=== PATIENT | female | born 1960 | race Caucasian/White ===

== ENCOUNTER 2016-12-24 10:43 | Outpatient (CLI) | payer MEDICAID ==
--- NOTE | 2016-12-24 15:20 | XRAY Report ---
LEFT HIP AND PELVIS: 12/24/2016 CLINICAL INDICATION: Pain. FINDINGS: Frontal view of the hips and pelvis and frogleg lateral view of the left hip demonstrate n o evidence of fracture or dislocation. The joint spaces are preserved. No radiopaque foreign body is appreciated in the soft tissues. IMPRESSION: NORMAL LEFT HIP AND PELVIS. JOB #: [id number] EXT JOB #:[id number]
--- NOTE | 2016-12-24 15:21 | XRAY Report ---
THREE VIEW LEFT KNEE: 12/24/2016 CLINICAL INDICATION: Knee pain. FINDINGS: Frontal, lateral, and sunrise views of the left knee demonstrate no evidence of fracture o r dislocation. The joint spaces are preserved. No effusion is present. IMPRESSION: NORMAL LEFT KNEE. JOB #: [id number] EXT JOB #:[id number]
== END 2016-12-24 10:44 | disposition home or self-care (01) ==
LOC: DI.S 10:43
PROVIDERS: ATTEND Nurse Practitioner Family
DX: M25.552 Pain in left hip (principal); M25.562 Pain in left knee

== ENCOUNTER 2017-06-08 14:24 | Emergency (ER) | payer MEDICAID ==
[2017-06-08] MEDS ORDERED: PANTOPRAZOLE 40 MG VIAL IVP STA (14:43)
--- NOTE | 2017-06-08 14:47 | ED Physician Documentation ---
PD HPI CHEST PAIN - Stated complaint Stated Complaint: CHEST PX - Chief complaint Chief Complaint: Cardiac - History obtained from History obtained from: Patient - History of Present Illness Timing - onset: Other (56-year-old woman with no known heart disease, she does have a history of treated hepatitis C and nephrectomy. Over the last 3 days she has had intermittent central squeezing chest pains, they are not exertional and they do seem to be worse at night. They are associated with shortness of breath, nausea and dizziness. Today also she had black tarry stool without hematemesis.) Review of Systems Ten Systems: 10 systems reviewed and negative Constitutional: reports: Fatigue. denies: Fever, Chills Ears: denies: Drainage/discharge Nose: denies: Rhinorrhea / runny nose, Congestion Cardiac: reports: Chest pain / pressure. denies: Palpitations Respiratory: reports: Dyspnea. denies: Cough GI: reports: Nausea, Bloody / black stool. denies: Abdominal Pain, Vomiting, Constipation, Diarrhea PD PAST MEDICAL HISTORY - Past Medical History Past Medical History: Yes Cardiovascular: Hypertension Respiratory: Shortness of breath Neuro: CVA Endocrine/Autoimmune: None, HyPOthyroidism GI: Hepatitis : Other HEENT: None Psych: Depression, Anxiety Musculoskeletal: Osteoarthritis - Past Surgical History Past Surgical History: Yes General: EGD, Other - Present Medications Home Medications: Ambulatory Orders Medication Instructions Recorded Confirmed Lisinopril 10 mg PO DAILY #7 tablet 04/11/15 06/08/17 Levothyroxine Sodium 0 mcg PO DAILY 06/08/17 06/08/17 Omeprazole [PriLOSEC] 20 mg PO BID #60 capsule 06/08/17 - Allergies Allergies/Adverse Reactions: Allergies Allergy/AdvReac Type Severity Reaction Status Date / Time No Known Drug Allergies Allergy Verified 04/11/15 10:39 - Social History Does the pt smoke?: Yes Smoking Status: Current every day smoker Does the pt drink ETOH?: Yes Does the pt have substance abuse?: No - Family History Family history: reports: Non contributory PD ED PE NORMAL - Vitals Vital signs reviewed: Yes - General General: Alert and oriented X 3, No acute distress - HEENT HEENT: PERRL, EOMI - Neck Neck: Supple, no meningeal sign, No bony TTP - Cardiac Cardiac: RRR, No murmur - Respiratory Respiratory: No respiratory distress, Clear bilaterally - Abdomen Abdomen: Normal bowel sounds, Soft, Non tender - Rectal Rectal: Other (Done with Irish Griffin present in chaperoning, she has melena from below that is guaiac positive.) - Derm Derm: Normal color, Warm and dry - Extremities Extremities: No edema, No calf tenderness / cord - Neuro Neuro: Alert and oriented X 3, Normal speech Eye Opening: Spontaneous Motor: Obeys Commands Verbal: Oriented GCS Score: 15 - Psych Psych: Normal mood, Normal affect Results - Vitals Vitals: Vital Signs - 24 hr 06/08/17 06/08/17 06/08/17 14:27 16:32 17:22 Temperature 36.3 C L 36.7 C 36.4 C L Heart Rate 80 68 67 Respiratory 18 15 15 Rate Blood Pressure 143/90 H 122/92 H 119/77 O2 Saturation 97 97 98 Oxygen O2 Source Room air - EKG (time done) 1428 Rate: Rate (enter#) (81) Rhythm: NSR [place]: Normal Intervals: Normal [place] QRS: Normal Ischemia: Normal ST segments Computer interpretation: Agree with computer - Labs Labs: Laboratory Tests 06/08/17 06/08/17 06/08/17 14:46 14:46 14:46 WBC 8.7 RBC 4.39 Hgb 13.8 Hct 41.0 MCV 93.3 MCH 31.4 H MCHC 33.7 RDW 13.2 Plt Count 328 MPV 6.9 L Neut # 5.8 Lymph # 2.3 [place] # 0.6 Eos # 0.1 Baso # 0.0 Absolute Nucleated RBC 0.00 Nucleated RBC % 0.0 PT 12.7 H INR 1.1 APTT 27.7 Sodium 136 Potassium 3.8 Chloride 107 Carbon Dioxide 22 Anion Gap 7.0 BUN 16 Creatinine 1.0 Estimated GFR (MDRD) 57 L Glucose 106 H Calcium 8.6 Magnesium 2.1 Total Bilirubin 0.9 AST 24 ALT 18 Alkaline Phosphatase 83 Troponin I Total Protein 7.4 Albumin 4.3 Globulin 3.1 Albumin/Globulin Ratio 1.4 Lipase 24 Ethyl Alcohol < 5.0 Blood Type Antibody Screen Crossmatch IS Only 06/08/17 06/08/17 06/08/17 14:46 14:46 17:04 WBC RBC Hgb 14.1 Hct 41.5 MCV MCH MCHC RDW Plt Count MPV Neut # Lymph # [place] # Eos # Baso # Absolute Nucleated RBC Nucleated RBC % PT INR APTT Sodium Potassium Chloride Carbon Dioxide Anion Gap BUN Creatinine Estimated GFR (MDRD) Glucose Calcium Magnesium Total Bilirubin AST ALT Alkaline Phosphatase Troponin I < 0.04 Total Protein Albumin Globulin Albumin/Globulin Ratio Lipase Ethyl Alcohol Blood Type A POSITIVE Antibody Screen NEGATIVE Crossmatch IS Only See Detail 06/08/17 17:04 WBC RBC Hgb Hct MCV MCH MCHC RDW Plt Count MPV Neut # Lymph # [place] # Eos # Baso # Absolute Nucleated RBC Nucleated RBC % PT INR APTT Sodium Potassium Chloride Carbon Dioxide Anion Gap BUN Creatinine Estimated GFR (MDRD) Glucose Calcium Magnesium Total Bilirubin AST ALT Alkaline Phosphatase Troponin I < 0.04 Total Protein Albumin Globulin Albumin/Globulin Ratio Lipase Ethyl Alcohol Blood Type Antibody Screen Crossmatch IS Only PD MEDICAL DECISION MAKING - ED course ED course: 56yo woman with H/O Hep C but no history of cirrhosis or varices preesnts with epigastric/chest pain with melena today. Her H/H is good as are her hemodynamics. Spoke with Dr Cifuentes recreation engineer surgery who felt she could be discharged for outpatient EGD. Given the acute nature though I will keep her in the ED for rpt H/H and trop. Departure - Departure Disposition: 01 Home, Self Care Clinical Impression: Gastritis Qualifiers: Gastritis type: superficial Chronicity: acute Gastritis bleeding: with bleeding Qualified Code(s): K29.01 - Acute gastritis with bleeding Condition: Good Record reviewed to determine appropriate education?: Yes Instructions: ED Gastritis Follow-Up: Елена Lan ARNP [Primary Care Provider] - Ayush Cifuentes MD [Provider Admit Priv/Credential] - Prescriptions: Omeprazole [PriLOSEC] 20 mg PO BID #60 capsule
[2017-06-08 14:56] LABS: BASOPHILS % (AUTO) 0.5 %; EOSINOPHILS # (AUTO) 0.1 10^3/uL (0.0-0.7); EOSINOPHILS % (AUTO) 0.7 %; HGB - HEMOGLOBIN 13.8 g/dL (12.0-16.0); LYMPHOCYTES # (AUTO) 2.3 10^3/uL (1.5-3.5); MEAN CORPUSCULAR HEMOGLOBIN 31.4 pg (27.0-31.0); MEAN CORPUSCULAR HGB CONC 33.7 g/dL (32.0-36.0); MEAN CORPUSCULAR VOLUME 93.3 fL (81.0-99.0); MEAN PLATELET VOLUME 6.9 fL (7.9-10.8); MONOCYTES # (AUTO) 0.6 10^3/uL (0.0-1.0); MONOCYTES % (AUTO) 6.7 %; NEUTROPHILS # (AUTO) 5.8 10^3/uL (1.5-6.6); NEUTROPHILS % (AUTO) 66.1 %; RED BLOOD COUNT 4.39 10^6/uL (4.20-5.40); RED CELL DISTRIBUTION WIDTH 13.2 % (12.0-15.0); UNCORRECTED WHITE BLOOD COUNT 8.7 x10^3/uL; WHITE BLOOD COUNT 8.7 x10^3/uL (4.8-10.8)
[2017-06-08 15:04] LABS: INR 1.1 (0.8-1.2); PT - PROTHROMBIN TIME 12.7 secs (9.9-12.6)
[2017-06-08 15:11] LABS: PARTIAL THROMBOPLASTIN TIME 27.7 secs (24.9-33.3)
[2017-06-08 15:13] LABS: ALBUMIN/GLOBULIN RATIO 1.4 (1.0-2.2); BILIRUBIN,TOTAL 0.9 mg/dL (0.2-1.0); BUN - BLOOD UREA NITROGEN 16 mg/dL (6-20); CALCIUM 8.6 mg/dL (8.5-10.3); CARBON DIOXIDE - CO2 22 mmol/L (21-32); CHLORIDE 107 mmol/L (101-111); GFR - MDRD 57 (>89); GLUCOSE 106 mg/dL (70-100); LIPASE 24 U/L (22-51); MAGNESIUM 2.1 mg/dL (1.7-2.8); POTASSIUM 3.8 mmol/L (3.5-5.0); SODIUM 136 mmol/L (135-145); TOTAL PROTEIN 7.4 g/dL (6.7-8.2)
[2017-06-08 17:13] LABS: HCT - HEMATOCRIT 41.5 % (37.0-47.0); HGB - HEMOGLOBIN 14.1 g/dL (12.0-16.0)
[2017-06-08 17:22] VITALS: BP 119/77
== END 2017-06-08 17:39 | disposition home or self-care (01) ==
LOC: ED 14:24
DX: K29.01 Acute gastritis with bleeding (principal); I10 Essential (primary) hypertension; Z86.73 Personal history of transient ischemic attack (TIA), and cerebral infarction without residual deficits; E03.9 Hypothyroidism, unspecified; B19.20 Unspecified viral hepatitis C without hepatic coma; M19.90 Unspecified osteoarthritis, unspecified site; F17.200 Nicotine dependence, unspecified, uncomplicated
CPT/HCPCS: 36415; 80053; 80320; 83690; 83735; 84484; 85014; 85018; 85025; 85610; 85730; 86850; 86900; 86901; 86920; 93005; 96374; 99283; 99284

== ENCOUNTER 2017-06-18 08:36 | Outpatient (CLI) | payer MEDICAID ==
[2017-06-18 09:08] LABS: BASOPHILS % (AUTO) 0.7 %; EOSINOPHILS # (AUTO) 0.1 10^3/uL (0.0-0.7); EOSINOPHILS % (AUTO) 1.6 %; HGB - HEMOGLOBIN 14.7 g/dL (12.0-16.0); LYMPHOCYTES # (AUTO) 1.6 10^3/uL (1.5-3.5); LYMPHOCYTES % (AUTO) 29.7 %; MEAN CORPUSCULAR HEMOGLOBIN 31.8 pg (27.0-31.0); MEAN CORPUSCULAR HGB CONC 34.2 g/dL (32.0-36.0); MEAN CORPUSCULAR VOLUME 93.2 fL (81.0-99.0); MEAN PLATELET VOLUME 6.9 fL (7.9-10.8); MONOCYTES # (AUTO) 0.4 10^3/uL (0.0-1.0); MONOCYTES % (AUTO) 6.6 %; NEUTROPHILS # (AUTO) 3.4 10^3/uL (1.5-6.6); NEUTROPHILS % (AUTO) 61.4 %; PLT - PLATELET COUNT 350 10^3/uL (130-450); RED BLOOD COUNT 4.61 10^6/uL (4.20-5.40); RED CELL DISTRIBUTION WIDTH 13.2 % (12.0-15.0); WHITE BLOOD COUNT 5.6 x10^3/uL (4.8-10.8)
[2017-06-18 09:18] LABS: ALBUMIN 4.7 g/dL (3.2-5.5); ALBUMIN/GLOBULIN RATIO 1.5 (1.0-2.2); ALKALINE PHOSPHATASE 91 IU/L (42-121); ALT ALANINE AMINOTRANSFERASE 21 IU/L (10-60); AST ASPARTATE AMINOTRANSFERASE 24 IU/L (10-42); BILIRUBIN,TOTAL 0.7 mg/dL (0.2-1.0); BUN - BLOOD UREA NITROGEN 20 mg/dL (6-20); CALCIUM 9.3 mg/dL (8.5-10.3); CARBON DIOXIDE - CO2 23 mmol/L (21-32); CHLORIDE 102 mmol/L (101-111); CREATININE 0.9 mg/dL (0.4-1.0); GFR - MDRD 65 (>89); GLUCOSE 105 mg/dL (70-100); SODIUM 137 mmol/L (135-145); TOTAL PROTEIN 7.9 g/dL (6.7-8.2)
[2017-06-18 09:35] LABS: THYROID STIMULATING HORMONE 12.72 uIU/mL (0.34-5.60)
[2017-06-18 09:41] LABS: FERRITIN 20.4 ng/mL (11.0-306.8)
[2017-06-18 10:12] LABS: FREE T4 (FREE THYROXINE) 0.68 ng/dL (0.58-1.64)
== END 2017-06-18 08:37 | disposition home or self-care (01) ==
LOC: LAB 08:36
PROVIDERS: ATTEND Nurse Practitioner Family
DX: Z79.899 Other long term (current) drug therapy (principal); I10 Essential (primary) hypertension; K29.01 Acute gastritis with bleeding; E03.9 Hypothyroidism, unspecified
CPT/HCPCS: 36415; 80053; 82728; 84439; 84443; 85025; 87522

== ENCOUNTER 2017-07-07 08:15 | Outpatient (CLI) | payer MEDICAID ==
[2017-07-12 21:41] LABS: HCV RNA QNT <1.18 NOT DETECTED Log IU/mL (<1.18); HCV RNA QUANT RT PCR <15 NOT DETECTED IU/mL (<15)
== END 2017-07-07 08:16 | disposition home or self-care (01) ==
LOC: LAB 08:15
PROVIDERS: ATTEND Nurse Practitioner Family
DX: Z79.899 Other long term (current) drug therapy (principal)
CPT/HCPCS: 87522

== ENCOUNTER 2017-07-12 07:08 | Day surgery (SDC) | payer MEDICAID ==
[2017-07-12] MEDS ORDERED: LACTATED RINGERS 1,000 ML IV ONE ×2 (07:49→09:47)
[2017-07-12] MEDS ORDERED: MIDAZOLAM 2 MG/2 ML VIAL IVP ONE (09:03)
[2017-07-12] MEDS ORDERED: fentaNYL 100 MCG/2 ML VIAL IVP ONE (09:03)
[2017-07-12] MEDS ORDERED: BENZOCAINE/TETRACAINE/BUTAMBEN SPRAY 56 GM TOP ONE (09:05)
[2017-07-12 10:27] VITALS: BP 94/60
== END 2017-07-12 07:09 | disposition home or self-care (01) ==
LOC: SDS 07:08
PROVIDERS: ATTEND Surgery
PROC: 0DB48ZX Excision of Esophagogastric Junction, Via Natural or Artificial Opening Endoscopic, Diagnostic (ICD-10-PCS; 2017-07-12)
PROC: 0DBN8ZX Excision of Sigmoid Colon, Via Natural or Artificial Opening Endoscopic, Diagnostic (ICD-10-PCS; principal; 2017-07-12 08:30)
PROC: 0DB98ZX Excision of Duodenum, Via Natural or Artificial Opening Endoscopic, Diagnostic (ICD-10-PCS; 2017-07-12 08:30)
DX: R19.7 Diarrhea, unspecified (principal); K63.5 Polyp of colon; K21.0 Gastro-esophageal reflux disease with esophagitis; K44.9 Diaphragmatic hernia without obstruction or gangrene; I10 Essential (primary) hypertension; J45.909 Unspecified asthma, uncomplicated; B18.2 Chronic viral hepatitis C; F17.210 Nicotine dependence, cigarettes, uncomplicated; E66.9 Obesity, unspecified; Z68.36 Body mass index [BMI] 36.0-36.9, adult
CPT/HCPCS: 43239; 45380; A9270; J7120

== ENCOUNTER 2017-07-15 07:56 | Outpatient (CLI) | payer MEDICAID | END 2017-07-15 07:57 | disposition home or self-care (01) | LOC: DI 07:56 | PROVIDERS: ATTEND Surgery | DX: Z53.9 Procedure and treatment not carried out, unspecified reason (principal) ==

== ENCOUNTER 2017-07-22 08:25 | Outpatient (CLI) | payer MEDICAID ==
--- NOTE | 2017-07-22 14:14 | Ultrasound Report ---
DATE OF SERVICE: 07/22/2017 RIGHT UPPER QUADRANT ULTRASOUND: 07/22/2017 CLINICAL INDICATION: Pain. COMPARISON: 01/03/2014. TECHNIQUE: Real-time scanning was performed with patient account representative static images obtained. FINDINGS: The liver measures 14.4 cm. Hepatic echotexture is normal. No focal hepatic lesion or intrahepatic biliary dilatation is seen. The common bile duct measures 3 mm. Similar to last time the gallbladder is contracted, and demonstrates shadowing calculi. The right kidney measures 11.2 cm, and demonstrates no hydronephrosis. IMPRESSION: CONTRACTED GALLBLADDER WITH CHOLELITHIASIS, SIMILAR TO PREVIOUS EXAMINATION OF 01/03/2014. NO EVIDENCE OF FOCAL LIVER LESION OR BILIARY DILATATION. TD: 07/22/2017 14:13 [facility]
== END 2017-07-22 08:26 | disposition home or self-care (01) ==
LOC: DI 08:25
PROVIDERS: ATTEND Surgery
DX: K80.20 Calculus of gallbladder without cholecystitis without obstruction (principal)
CPT/HCPCS: 76705

== ENCOUNTER 2017-08-17 09:11 | Outpatient (CLI) | payer MEDICAID | END 2017-08-17 09:12 | disposition home or self-care (01) | LOC: LAB 09:11 | PROVIDERS: ATTEND Nurse Practitioner Family | DX: E03.9 Hypothyroidism, unspecified (principal) | CPT/HCPCS: 36415; 84443 ==

== ENCOUNTER 2017-10-17 08:00 | Outpatient (CLI) | payer MEDICAID ==
[2017-10-17 19:20] LABS: THYROID STIMULATING HORMONE 0.17 uIU/mL (0.34-5.60)
[2017-10-17 20:04] LABS: FREE T4 (FREE THYROXINE) 1.38 ng/dL (0.58-1.64)
== END 2017-10-17 08:01 | disposition home or self-care (01) ==
LOC: LAB.S 08:00
PROVIDERS: ATTEND Nurse Practitioner Family
DX: E03.9 Hypothyroidism, unspecified (principal)
CPT/HCPCS: 36415; 84439; 84443

== ENCOUNTER 2017-10-17 10:00 | Outpatient (CLI) | payer MEDICAID ==
--- NOTE | 2017-10-17 12:32 | XRAY Report ---
THREE VIEW LUMBAR SPINE: 10/17/2017 CLINICAL INDICATION: Chronic low back pain. COMPARISON: 08/02/2014. FINDINGS: Frontal, lateral, coned down views of the lumbar spine demonstrate stable mild degenerative disk and facet disease. There is no evidence of interval compression fracture. Minimal degenerative anterolisthesis of L5 on S1 is stable. Postoperative changes are stable. The previously noted calcification overlying the right renal shadow has resolved. IMPRESSION: NO EVIDENCE OF FRACTURE. STABLE DEGENERATIVE CHANGES. TD: 10/17/2017 12:31
--- NOTE | 2017-10-17 12:33 | XRAY Report ---
RIGHT HIP AND PELVIS: 10/17/2017 CLINICAL INDICATION: Pain. COMPARISON: 12/24/2016. FINDINGS: Frontal view of the hips and pelvis and frogleg lateral view of the right hip demonstrate mild osteoarthritis. There is no evidence of acute fracture. No radiopaque foreign body is seen in the soft tissues. Surgical clip in the left abdomen is stable. IMPRESSION: MILD RIGHT HIP OSTEOARTHRITIS. TD: 10/17/2017 12:32
== END 2017-10-17 10:01 | disposition home or self-care (01) ==
LOC: DI.S 10:00
PROVIDERS: ATTEND Nurse Practitioner Family
DX: M51.36 Other intervertebral disc degeneration, lumbar region (principal); M47.896 Other spondylosis, lumbar region; M43.17 Spondylolisthesis, lumbosacral region; M16.11 Unilateral primary osteoarthritis, right hip; E03.9 Hypothyroidism, unspecified
CPT/HCPCS: 36415; 72100; 84439; 84443

== ENCOUNTER 2017-12-02 11:36 | Outpatient (CLI) | payer MEDICAID ==
--- NOTE | 2017-12-07 11:15 | Mammography Report ---
Procedure Date: 12/02/2017 Accession Number: [id number] / [id number] Procedure: [facility] - Screening Mammo Dig Bilat CPT Code: FULL RESULT: EXAM: Screening Mammo Dig Bilat DATE: 12/02/2017 12:02 PM CLINICAL HISTORY: Routine screening TECHNIQUE: Bilateral CC and MLO views were obtained. COMPARISON: 09/01/2015 and 09/03/2013 FINDINGS: There is extensive fatty replacement of the breast tissue. No suspicious masses, clustered microcalcifications, or regions of architectural distortion are identified. A possible subareolar nodule is seen on the left cc view versus the nipple. On the left neither the CC or MLO projections have the nipple in profile. IMPRESSION: Negative right breast. Needs technical repeat of the left breast for nipple in profile. RECOMMENDATION: Needs additional imaging. BIRADS CATEGORY 0: Incomplete examination STANDARD QUALIFYING STATEMENTS: 1. This examination was reviewed with the aid of Computer-Aided Detection (CAD). 2. A negative or benign imaging report should not delay biopsy if clinically suspicious findings are present. Consider surgical consultation if warrented. More than 5% of cancers are not identified by imaging. 3. Dense breasts may obscure an underlying neoplasm.
== END 2017-12-02 11:37 | disposition home or self-care (01) ==
LOC: DI 11:36
PROVIDERS: ATTEND Nurse Practitioner Family
DX: Z12.31 Encounter for screening mammogram for malignant neoplasm of breast (principal); R92.8 Other abnormal and inconclusive findings on diagnostic imaging of breast
CPT/HCPCS: 77067

== ENCOUNTER 2017-12-06 14:15 | Outpatient (CLI) | END 2017-12-06 14:16 | disposition home or self-care (01) ==

== ENCOUNTER 2017-12-29 13:24 | Outpatient (CLI) | payer MEDICAID ==
--- NOTE | 2018-01-16 09:01 | Mammography Report ---
Procedure Date: 12/29/2017 Accession Number: [id number] / [id number] Procedure: [facility] - Screening Mammo Dig Bilat CPT Code: FULL RESULT: FINDINGS: IMPRESSION: For results please refer to the Bilateral Screening Mammogram report from 12/02/2017.
--- NOTE | 2018-01-16 09:08 | Mammography Report ---
Procedure Date: 12/29/2017 Accession Number: [id number] / [id number] Procedure: [facility] - No Charge Procedure CPT Code: FULL RESULT: FINDINGS: IMPRESSION: For results please refer to the Bilateral Screening Mammogram report from 12/02/2017.
== END 2017-12-29 13:25 | disposition home or self-care (01) ==
LOC: DI 13:24
PROVIDERS: ATTEND Nurse Practitioner Family
DX: Z12.31 Encounter for screening mammogram for malignant neoplasm of breast (principal)
CPT/HCPCS: 77067

== ENCOUNTER 2018-01-03 07:13 | Outpatient (CLI) | payer MEDICAID ==
[2018-01-03 08:54] LABS: THYROID STIMULATING HORMONE 5.72 uIU/mL (0.34-5.60)
[2018-01-03 09:41] LABS: FREE T4 (FREE THYROXINE) 0.99 ng/dL (0.58-1.64)
== END 2018-01-03 07:14 | disposition home or self-care (01) ==
LOC: LAB 07:13
PROVIDERS: ATTEND Nurse Practitioner Family
DX: E03.9 Hypothyroidism, unspecified (principal)
CPT/HCPCS: 36415; 84439; 84443

== ENCOUNTER 2018-02-01 19:23 | Outpatient (CLI) | payer MEDICAID | END 2018-02-01 19:24 | disposition home or self-care (01) | LOC: SC 19:23 | PROVIDERS: ATTEND Internal Medicine Pulmonary Disease | DX: G47.33 Obstructive sleep apnea (adult) (pediatric) (principal); G47.61 Periodic limb movement disorder | CPT/HCPCS: 95810 ==

== ENCOUNTER 2018-03-13 08:40 | Outpatient (CLI) | payer MEDICAID | END 2018-03-13 08:41 | disposition home or self-care (01) | LOC: SC 08:40 | PROVIDERS: ATTEND Nurse Practitioner Family | DX: G47.33 Obstructive sleep apnea (adult) (pediatric) (principal); G47.61 Periodic limb movement disorder | CPT/HCPCS: 99212; 99215 ==

== ENCOUNTER 2018-08-23 11:13 | Outpatient (CLI) | payer MEDICAID | END 2018-08-23 11:14 | disposition home or self-care (01) | LOC: LAB 11:13 | PROVIDERS: ATTEND Nurse Practitioner | DX: E03.9 Hypothyroidism, unspecified (principal) | CPT/HCPCS: 36415; 84443 ==

== ENCOUNTER 2018-10-24 10:37 | Outpatient (CLI) | payer MEDICAID ==
[2018-10-24 10:52] LABS: BASOPHILS % (AUTO) 0.3 %; EOSINOPHILS # (AUTO) 0.1 10^3/uL (0.0-0.7); EOSINOPHILS % (AUTO) 1.7 %; HGB - HEMOGLOBIN 13.9 g/dL (12.0-16.0); LYMPHOCYTES # (AUTO) 1.9 10^3/uL (1.5-3.5); LYMPHOCYTES % (AUTO) 29.6 %; MEAN CORPUSCULAR HEMOGLOBIN 31.4 pg (27.0-31.0); MEAN CORPUSCULAR HGB CONC 33.1 g/dL (32.0-36.0); MEAN CORPUSCULAR VOLUME 94.8 fL (81.0-99.0); MEAN PLATELET VOLUME 6.8 fL (7.9-10.8); MONOCYTES # (AUTO) 0.4 10^3/uL (0.0-1.0); MONOCYTES % (AUTO) 6.5 %; NEUTROPHILS # (AUTO) 3.9 10^3/uL (1.5-6.6); NEUTROPHILS % (AUTO) 61.9 %; PLT - PLATELET COUNT 337 10^3/uL (130-450); RED BLOOD COUNT 4.41 10^6/uL (4.20-5.40); RED CELL DISTRIBUTION WIDTH 13.5 % (12.0-15.0); WHITE BLOOD COUNT 6.3 x10^3/uL (4.8-10.8)
[2018-10-24 11:02] LABS: ALBUMIN/GLOBULIN RATIO 1.3 (1.0-2.2); BILIRUBIN,TOTAL 0.9 mg/dL (0.2-1.0); CALCIUM 8.9 mg/dL (8.5-10.3); CREATININE 0.7 mg/dL (0.4-1.0); TOTAL PROTEIN 7.2 g/dL (6.7-8.2)
[2018-10-24 11:20] LABS: HB2 TOTAL 14.4 g/dL; HEMOGLOBIN A1C 0.48 g/dL; HEMOGLOBIN A1C % 5.2 % (4.6-6.2)
== END 2018-10-24 10:38 | disposition home or self-care (01) ==
LOC: LAB 10:37
PROVIDERS: ATTEND Nurse Practitioner
DX: R10.9 Unspecified abdominal pain (principal); Q60.0 Renal agenesis, unilateral; E03.9 Hypothyroidism, unspecified; I10 Essential (primary) hypertension; F41.8 Other specified anxiety disorders
CPT/HCPCS: 36415; 80053; 83036; 85025

== ENCOUNTER 2018-10-31 11:02 | Outpatient (CLI) | payer MEDICAID ==
--- NOTE | 2018-10-31 15:57 | CT Report ---
Reason: RENAL STONE,FLANK PAIN,RIGHT,SINGLE KIDNEY Procedure Date: 10/31/2018 Accession Number: [id number] / [id number] Procedure: CT - Abdomen/Pelvis WO CPT Code: FULL RESULT: EXAM: CT ABDOMEN AND PELVIS (CT KUB) WITHOUT CONTRAST. EXAM DATE: 10/31/2018 11:50 AM. CLINICAL HISTORY: Renal stone, flank pain, right, single kidney. COMPARISONS: ABDOMEN/PELVIS W/O 01/02/2014 10:21 AM. TECHNIQUE: Routine axial helical CT imaging was performed through the abdomen and pelvis without IV contrast. Reconstructions: Coronal and sagittal. In accordance with CT protocol optimization, one or more of the following dose reduction techniques were utilized for this exam: automated exposure control, adjustment of mA and/or KV based on patient size, or use of iterative reconstructive technique. FINDINGS: Lung Bases: Unremarkable. Right Kidney/Ureter: Stable 2 mm nonobstructing nephrolithiasis upper pole. No hydronephrosis. No masses or contour abnormalities. No hydroureter or ureterolithiasis. Left Kidney/Ureter: Surgically absent, with stable postoperative appearance. Other Solid Organs: Noncontrast images of the solid organs are grossly unremarkable. Gallbladder/Bile Ducts: Stable mild cholelithiasis. No CT evidence of cholecystitis. Gallbladder is decompressed. Peritoneal Cavity: No free fluid, free air or cassy adenopathy. Bowel is grossly unremarkable. The appendix is normal in the right lower quadrant. Pelvic Organs: No bladder stones or wall thickening. Noncontrast images of the visualized pelvic organs are unremarkable. Vasculature: Unremarkable. Other: None. IMPRESSION: 1. Stable nonobstructing 2 mm nephrolithiasis right upper pole kidney. No hydronephrosis or ureterolithiasis. 2. Stable operative changes after left nephrectomy. 3. Cholelithiasis without other evidence of cholecystitis, stable. Normal appendix. [facility]
== END 2018-10-31 11:03 | disposition home or self-care (01) ==
LOC: DI 11:02
PROVIDERS: ATTEND Nurse Practitioner
DX: N20.0 Calculus of kidney (principal); K80.20 Calculus of gallbladder without cholecystitis without obstruction; Z90.5 Acquired absence of kidney
CPT/HCPCS: 74176

== ENCOUNTER 2019-01-19 | Outpatient (CLI) | payer MEDICAID | END 2019-01-19 11:02 | disposition home or self-care (01) | DX: E03.9 Hypothyroidism, unspecified (principal) ==

== ENCOUNTER 2019-03-30 13:49 | Outpatient (CLI) | payer MEDICAID | END 2019-03-30 13:50 | disposition critical access hospital (66) | LOC: EMS 13:49 | PROVIDERS: ATTEND Surgery | DX: R55 Syncope and collapse (principal) | CPT/HCPCS: A0425; A0429; A0999 ==

== ENCOUNTER 2019-03-30 13:55 | Inpatient (IN) | payer MEDICAID ==
[2019-03-30 14:27] LABS: MUDS CUTOFF CONCENTRATIONS CUTOFF CONC BELOW:
[2019-03-30 14:33] LABS: BILIRUBIN,URINE NEGATIVE (NEGATIVE); GLUCOSE, URINE (UA) NEGATIVE (NEGATIVE); KETONES,URINE (UA) NEGATIVE (NEGATIVE); LEUKOCYTE ESTERASE, URINE NEGATIVE (NEGATIVE); NITRITE,URINE POSITIVE (NEGATIVE); OCCULT BLOOD,URINE NEGATIVE (NEGATIVE); PROTEIN,URINE NEGATIVE (NEGATIVE); UROBILINOGEN,URINE 0.2 (NORMAL) E.U./dL (NORMAL)
[2019-03-30 14:42] LABS: AMPHETAMINE SCREEN,URINE NEGATIVE (NEGATIVE); BENZODIAZEPINES SCREEN, URINE NEGATIVE (NEGATIVE); COCAINE SCREEN URINE NEGATIVE (NEGATIVE); METHADONE SCREEN, URINE NEGATIVE (NEGATIVE); METHAMPHETAMINES SCREEN, URINE NEGATIVE (NEGATIVE); OPIATE SCREEN, URINE NEGATIVE (NEGATIVE); OXYCODONE SCREEN, URINE NEGATIVE (NEGATIVE); PROPOXYPHENE SCREEN, URINE NEGATIVE (NEGATIVE); TRICYCLIC ANTIDEPRESSANT,URINE NEGATIVE (NEGATIVE)
[2019-03-30 14:46] LABS: BACTERIA,URINE Few /HPF (None Seen); CLARITY,URINE HAZY (CLEAR); RBC,URINE 0-5 /HPF (0-5); SQUAMOUS EPITHELIAL CELL,UR RARE Squamous (<= Few)
--- NOTE | 2019-03-30 15:22 | CT Report ---
Reason: head trauma, fall, ETOH Procedure Date: 03/30/2019 Accession Number: [id number] / [id number] Procedure: CT - HEAD WO CPT Code: FULL RESULT: EXAM: CT HEAD EXAM DATE: 03/30/2019 02:59 PM. CLINICAL HISTORY: Head trauma, fall, ETOH. COMPARISON: CERVICAL SPINE W/O 03/30/2019 2:50 PM. TECHNIQUE: Multiaxial CT images were obtained from the foramen magnum to the vertex. Reformats: Sagittal and coronal. IV contrast: None. In accordance with CT protocol optimization, one or more of the following dose reduction techniques were utilized for this exam: automated exposure control, adjustment of mA and/or KV based on patient size, or use of iterative reconstructive technique. FINDINGS: Parenchyma: No intraparenchymal hemorrhage. No evidence of mass, midline shift, or CT findings of infarction. Buenrostro-white differentiation is distinct. Extraaxial Spaces: Normal for age. No subdural or epidural collections identified. Ventricles: Normal in size and position. Sinuses and Orbits: Imaged paranasal sinuses, orbits, and mastoids show no significant abnormality. Bones: No evidence of fracture or calvarial defect. Other: None. IMPRESSION: Normal head CT. No intrarenal hemorrhage, mass-effect, or other acute abnormality. [facility]
--- NOTE | 2019-03-30 15:28 | CT Report ---
Reason: fall, ETOH Procedure Date: 03/30/2019 Accession Number: [id number] / [id number] Procedure: CT - CERVICAL SPINE WO CPT Code: FULL RESULT: EXAM: CT CERVICAL SPINE WITHOUT CONTRAST DATE: 03/30/2019 02:59 PM. HISTORY: Fall, ETOH. COMPARISONS: CERVICAL SPINE COMPLETE 08/02/2014 4:07 PM. TECHNIQUE: Thin-section axial images were acquired of the cervical spine without contrast. Post-processing: Coronal and sagittal reformats. Other: None. In accordance with CT protocol optimization, one or more of the following dose reduction techniques were utilized for this exam: automated exposure control, adjustment of mA and/or KV based on patient size, or use of iterative reconstructive technique. FINDINGS: Mild motion artifact limited. The anterior inferior aspect of the C7 vertebral body and the anterior alignment of C7 on T1 are not imaged and cannot be evaluated. The patient is wearing a metal necklace which causes metal artifact limiting the exam. Mild C5-C6 and C6-C7 degenerative disease with anterior osteophytes. Moderate bilateral C2-C3 and C3-C4 facet arthropathy, otherwise mild facet arthropathy in the cervical spine. No evidence for acute fracture. Soft tissue: No acute findings are seen. IMPRESSION: 1. The exam is limited as described above. No acute fracture is seen. 2. Degenerative changes. See above. [facility]
[2019-03-30 16:35] LABS: BASOPHILS % (AUTO) 0.4 %; EOSINOPHILS % (AUTO) 0.5 %; HGB - HEMOGLOBIN 12.9 g/dL (12.0-16.0); LYMPHOCYTES # (AUTO) 1.6 10^3/uL (1.5-3.5); LYMPHOCYTES % (AUTO) 29.1 %; MEAN CORPUSCULAR HEMOGLOBIN 31.1 pg (27.0-31.0); MEAN CORPUSCULAR HGB CONC 32.6 g/dL (32.0-36.0); MEAN CORPUSCULAR VOLUME 95.4 fL (81.0-99.0); MEAN PLATELET VOLUME 8.8 fL (7.9-10.8); MONOCYTES # (AUTO) 0.3 10^3/uL (0.0-1.0); MONOCYTES % (AUTO) 5.5 %; NEUTROPHILS # (AUTO) 3.5 10^3/uL (1.5-6.6); PLT - PLATELET COUNT 255 10^3/uL (130-450); RED BLOOD COUNT 4.15 10^6/uL (4.20-5.40); RED CELL DISTRIBUTION WIDTH 12.6 % (12.0-15.0); WHITE BLOOD COUNT 5.5 x10^3/uL (4.8-10.8)
[2019-03-30] MEDS ORDERED: cefTRIAXone 2 GM in SODIUM CHLORIDE 0.9% MINIBAG 100 ML IV STA (16:41)
[2019-03-30 16:42] LABS: ACETAMINOPHEN < 10 ug/mL (10-30); ALBUMIN 3.5 g/dL (3.2-5.5); ALBUMIN/GLOBULIN RATIO 1.7 (1.0-2.2); ALKALINE PHOSPHATASE 59 IU/L (42-121); ALT ALANINE AMINOTRANSFERASE 37 IU/L (10-60); AST ASPARTATE AMINOTRANSFERASE 36 IU/L (10-42); BUN - BLOOD UREA NITROGEN 12 mg/dL (6-20); CALCIUM 7.5 mg/dL (8.5-10.3); CARBON DIOXIDE - CO2 21 mmol/L (21-32); CHLORIDE 113 mmol/L (101-111); CREATININE 0.9 mg/dL (0.4-1.0); GFR - MDRD 64 (>89); GLUCOSE 109 mg/dL (70-100); SALICYLATE < 6.0 mg/dL; SODIUM 143 mmol/L (135-145); TOTAL PROTEIN 5.6 g/dL (6.7-8.2)
--- NOTE | 2019-03-30 16:59 | ED Physician Documentation ---
PD HPI ALTERED MENTAL STATUS - Stated complaint Stated Complaint: ETOH - Chief complaint Chief Complaint: Neuro - History obtained from History obtained from: Friend, EMS - History of Present Illness Timing - onset: Today Timing - duration: Minutes (just prior to arrival) Timing - details: Abrupt onset Quality / character: Less responsive Associated symptoms: No: Fever, Focal weakness, Seizure activity Contributing factors: Intoxicated. No: Anticoagulated, Diabetic, New med ication, Recent med change, Recent illness, Substance abuse, Known psych illness Basline status: Alert and oriented X 3, Ambulatory, Independent Treatment PROFESSOR OF HISTORICAL THEOLOGY: Accucheck (within normal limits) Similar symptoms before: Has not had sx before Recently seen: Not recently seen - Treatment prior to arrival Treatment prior to arrival: placed in cervical spinal immobilization, given fluids and accucheck performed - Additional information Additional information: 58 y/o F arrived by EMS after a fall and LOC prior to arrival. This was a ground level fall. Per her friend she just found out that the man she was dating is ma rried when she called his phone and his answered. Per her friend and EMS this caused her to drink heavily today and then she passed out and they do not think she hit her head but cannot confirm. This was a ground level fall. She was hypotensive on arrival to 70-80 systolic with some improvement with fluids. She has a hx of hepatitis, hypothyroidism, HTN. Per her friend she has otherwise been well, not sick, and has not been suicidal or homicidal. She does not believe this was done as a suicidal attempt or for self harm. She states she believes she takes all of her medication as prescri be.d Review of Systems Unable to obtain: AMS, Intoxicated PD PAST MEDICAL HISTORY - Past Medical History Past Medical History: Yes Cardiovascular: Hypertension Respiratory: Shortness of breath Endocrine/Autoimmune: None, HyPOthyroidism GI: Hepatitis : Other HEENT: None Psych: Depression, Anxiety Musculoskeletal: Osteoarthritis Derm: None - Past Surgical History Past Surgical History: Yes General: EGD, Other - Present Medications Home Medications: Ambulatory Orders Medication Instructions Recorded Confirmed Omeprazole [PriLOSEC] 20 mg PO BID #60 capsule 06/08/17 07/12/17 Citalopram Hydrobromide 10 mg PO DAILY 03/30/19 03/30/19 [Citalopram HBr] Levothyroxine [Synthroid] 88 mcg PO QDAC 03/30/19 03/30/19 Losartan Potassium 25 mg PO DAILY 03/30/19 03/30/19 traZODone [Desyrel] 50 mg PO QPM 03/30/19 03/30/19 - Allergies Allergies/Adverse Reactions: Allergies Allergy/AdvReac Type Severity Reaction Status Date / Time No Known Drug Allergies Allergy Verified 03/30/19 14:09 - Social History Does the pt smoke?: Yes Smoking Status: Current every day smoker Does the pt drink ETOH?: Yes Does the pt have substance abuse?: No PD ED PE NORMAL - Vitals Vital signs reviewed: Yes (mild hypotension, BP systolic 85-90) - HEENT HEENT: Atraumatic, PERRL, EOMI, Pharynx benign - Neck Neck: Supple, no meningeal sign, No bony TTP, No JVD, Other (patient arrived in C-collar) - Cardiac Cardiac: RRR, No murmur, No gallop, No rub, Strong equal pulses - Respiratory Respiratory: No respiratory distress, Clear bilaterally, Other (mild ecchymosis on R chest wall anteriorly, appears old) - Abdomen Abdomen: Soft, Non tender, Non distended - Female Female : Other (no external abnormality ) - Rectal Rectal: Deferred - Derm Derm: Normal color, Warm and dry, No rash - Extremities Extremities: No deformity, No tenderness to palpate, Normal ROM s pain, No edema PD ED PE EXPANDED - General General: Other (responsive to touch, and moving all extremities but not coherent, mumbling, smells of alcohol) - HEENT HEENT: Atraumatic, Ears normal, Other (no hemotympanum bilaterally ). No: Head injury - Eyes Eyes: PERRL, EOMI - Neck Neck: No tenderness. No: Soft tissue TTP, Bony TTP - Back Back: Normal exam. No: Vertebral tenderness - Extremities Extremities: No: Deformity, Tenderness - GCS Eye Opening: Spontaneous Motor: Localizes to Pain Verbal: Incomprehensible Total: 11 - Psych Psych: Intoxicated / AOB. No: Suicidal, Tearful Results - Vitals Vitals: Vital Signs - 24 hr 03/30/19 03/30/19 03/30/19 13:57 15:11 16:24 Temperature 35.6 C L Heart Rate 62 63 76 Respiratory 20 16 18 Rate Blood Pressure 70/48 L 80/61 L 68/50 L O2 Saturation 95 97 97 03/30/19 03/30/19 16:48 17:00 Temperature 35.5 C L Heart Rate 76 70 Respiratory 18 24 Rate Blood Pressure 85/62 L 86/60 L O2 Saturation 100 98 Oxygen O2 Source Room air - EKG (time done) 14:38 Rate: Rate (enter#) (65) Rhythm: NSR [place]: Normal Intervals: Normal UT, Prolonged QT (QTc 511) QRS: Normal Ischemia: Normal ST segments Computer interpretation: Agree with computer - Labs Labs: Laboratory Tests 03/30/19 03/30/19 03/30/19 14:20 14:20 16:23 WBC 5.5 RBC 4.15 L Hgb 12.9 Hct 39.6 MCV 95.4 MCH 31.1 H MCHC 32.6 RDW 12.6 Plt Count 255 MPV 8.8 Neut # (Auto) 3.5 Lymph # (Auto) 1.6 [place] # (Auto) 0.3 Eos # (Auto) 0.0 Baso # (Auto) 0.0 Absolute Nucleated RBC 0.00 Nucleated RBC % 0.0 Sodium Potassium Chloride Carbon Dioxide Anion Gap BUN Creatinine Estimated GFR (MDRD) Glucose Lactic Acid Calcium Total Bilirubin AST ALT Alkaline Phosphatase Ammonia Total Protein Albumin Globulin Albumin/Globulin Ratio TSH Free T4 Urine Color YELLOW Urine Clarity HAZY Urine pH 6.0 Ur Specific [place] <=1.005 Urine Protein NEGATIVE Urine Glucose (UA) NEGATIVE Urine Ketones NEGATIVE Urine Occult Blood NEGATIVE Urine Nitrite POSITIVE H Urine Bilirubin NEGATIVE Urine Urobilinogen 0.2 (NORMAL) Ur Leukocyte Esterase NEGATIVE Urine RBC 0-5 Urine WBC 0-3 Ur Squamous Epith Cells RARE Squamous Urine Bacteria Few Ur Microscopic Review INDICATED Urine Culture Comments INDICATED Salicylates Urine Opiates Screen NEGATIVE Ur Oxycodone Screen NEGATIVE Urine Methadone Screen NEGATIVE Ur Propoxyphene Screen NEGATIVE Acetaminophen Ur Barbiturates Screen NEGATIVE Ur Tricyclics Screen NEGATIVE Ur Phencyclidine Scrn NEGATIVE Ur Amphetamine Screen NEGATIVE U Methamphetamines Scrn NEGATIVE U Benzodiazepines Scrn NEGATIVE Urine Cocaine Screen NEGATIVE U Cannabinoids Screen POSITIVE H Ethyl Alcohol 03/30/19 03/30/19 03/30/19 16:23 16:23 16:30 WBC RBC Hgb Hct MCV MCH MCHC RDW Plt Count MPV Neut # (Auto) Lymph # (Auto) [place] # (Auto) Eos # (Auto) Baso # (Auto) Absolute Nucleated RBC Nucleated RBC % Sodium 143 Potassium 4.5 Chloride 113 H Carbon Dioxide 21 Anion Gap 9.0 BUN 12 Creatinine 0.9 Estimated GFR (MDRD) 64 L Glucose 109 H Lactic Acid Calcium 7.5 L Total Bilirubin 1.0 AST 36 ALT 37 Alkaline Phosphatase 59 Ammonia 14.4 Total Protein 5.6 L Albumin 3.5 Globulin 2.1 Albumin/Globulin Ratio 1.7 TSH < 0.08 L Free T4 Urine Color Urine Clarity Urine pH Ur Specific [place] Urine Protein Urine Glucose (UA) Urine Ketones Urine Occult Blood Urine Nitrite Urine Bilirubin Urine Urobilinogen Ur Leukocyte Esterase Urine RBC Urine WBC Ur Squamous Epith Cells Urine Bacteria Ur Microscopic Review Urine Culture Comments Salicylates < 6.0 Urine Opiates Screen Ur Oxycodone Screen Urine Methadone Screen Ur Propoxyphene Screen Acetaminophen < 10 L Ur Barbiturates Screen Ur Tricyclics Screen Ur Phencyclidine Scrn Ur Amphetamine Screen U Methamphetamines Scrn U Benzodiazepines Scrn Urine Cocaine Screen U Cannabinoids Screen Ethyl Alcohol 312.9 03/30/19 03/30/19 16:30 16:30 WBC RBC Hgb Hct MCV MCH MCHC RDW Plt Count MPV Neut # (Auto) Lymph # (Auto) [place] # (Auto) Eos # (Auto) Baso # (Auto) Absolute Nucleated RBC Nucleated RBC % Sodium Potassium Chloride Carbon Dioxide Anion Gap BUN Creatinine Estimated GFR (MDRD) Glucose Lactic Acid 3.0 H* Calcium Total Bilirubin AST ALT Alkaline Phosphatase Ammonia Total Protein Albumin Globulin Albumin/Globulin Ratio TSH Free T4 3.04 H Urine Color Urine Clarity Urine pH Ur Specific [place] Urine Protein Urine Glucose (UA) Urine Ketones Urine Occult Blood Urine Nitrite Urine Bilirubin Urine Urobilinogen Ur Leukocyte Esterase Urine RBC Urine WBC Ur Squamous Epith Cells Urine Bacteria Ur Microscopic Review Urine Culture Comments Salicylates Urine Opiates Screen Ur Oxycodone Screen Urine Methadone Screen Ur Propoxyphene Screen Acetaminophen Ur Barbiturates Screen Ur Tricyclics Screen Ur Phencyclidine Scrn Ur Amphetamine Screen U Methamphetamines Scrn U Benzodiazepines Scrn Urine Cocaine Screen U Cannabinoids Screen Ethyl Alcohol - Rads (name of study) CT head Radiology: Final report received, See rad report (negative head ct) CT Cervical spine Radiology: Final report received, See rad report (negative C spine ) CXR Radiology: EMP read indepedently (no acute disease ) PD MEDICAL DECISION MAKING - ED course Complexity details: reviewed old records, reviewed results, re-evaluated patient, considered differential, d/w patient, d/w regulatory services consultant, other (discussed with friend ) ED course: ddx- septic shock, hypovolemic shock, distributive shock, polysubstance abuse, alcohol intoxication, overdose, cardiogenic shock 58 y/o F with hx and exam as documented. Limited history due to patient's altered state and intoxication on arrival. She was hypotensive on arrival and given several liters of fluids with some improvement from 70 systolic to 85-90 systolic. She had a reported fall but no evidence of significant trauma on exam. She was found on the ground when her friend heard a thump in the kitchen and was mildly hypothermic on arrival, it was unclear if this could be due to her being on the cold ground until EMS had arrived. She was not tachycardic. Her CT head and Cspine were neg and a CXR was clear. Her ETOH level was 312 and her mental status did improve with time and with fluids in the ED, on reassessment her GCS went from an 11 to a 14. Her lactate was 3.0 She started to report that she generally just didnt feel well and couldn't pee. Unclear of the timeline for this. She did however produce urine and her UA was suggestive of a UTI thus started ceftriaxone. Thus this could be septic shock and she was treated as such with fluids and antibiotics. Her tylenol and salicylate levels were negative and her UDS was neg except marijuana. Her neck is supple and I do not believe she has meningitis. WIll admit for further eval, antibiotics, fluids and monitoring of hypotension and mental status. - Critical Care Time(min): 30 Comments: management of hypotension, possible sepsis with antibiotics, fluids, reassessment of altered mental status. Time Includes: Direct patient care, Review records, Reassess patient, Document care, Medical consult Data interpretation: Labs, CXR - Sepsis Event Current Stage of Sepsis: Septic shock Initial Hypotension: MAP less than 65 mmHg Persistent Hypotension: MAP less than 65 mmHg Possible source of Sepsis: Genitourinary Mental/Cognitive Status: Confused, Other (but also intoxicated ) Capillary refill: Less than 2 seconds Sepsis Comment: on arrival it was unclear whether this was a septic event as pt had some hypotension but no tachycardia or fever. She had very mild hypothermia but had fallen at home and was severely intoxicated so friend thought she may have been just been cold from being on the ground. Departure - Departure Clinical Impression: Septic shock, Marijuana smoker UTI (urinary tract infection) Qualifiers: Urinary tract infection type: site unspecified Hematuria presence: without hematuria Qualified Code(s): N39.0 - Urinary tract infection, site not specified Acute alcohol intoxication Qualifiers: Complication of substance-induced condition: with unspecified complication Qualified Code(s): F10.929 - Alcohol use, unspecified with intoxication, unspecified Condition: Fair Record reviewed to determine appropriate education?: Yes Discharge Date/Time: 03/30/19 18:30
[2019-03-30] MEDS ORDERED: SODIUM CHLORIDE 0.9% 1,000 ML IV ONE ×3 (17:25→20:54)
--- NOTE | 2019-03-30 17:39 | XRAY Report ---
Reason: chest pain Procedure Date: 03/30/2019 Accession Number: [id number] / [id number] Procedure: XR - Chest 1 View X-Ray CPT Code: 18039 FULL RESULT: EXAM: CHEST RADIOGRAPHY EXAM DATE: 03/30/2019 05:17 PM. CLINICAL HISTORY: Chest pain. COMPARISON: CHEST 2 VIEW PA/LAT 01/03/2014 12:50 PM CERVICAL SPINE W/O 03/30/2019 2:50 PM. TECHNIQUE: 1 view. FINDINGS: Lungs/Pleura: No focal opacities evident. No pleural effusion. No pneumothorax. Mediastinum: Within exam limitations, the cardiomediastinal contour is normal. Other: None. IMPRESSION: No radiographic evidence for acute cardiopulmonary process on chest radiograph. RADIA
[2019-03-30] MEDS ORDERED: SODIUM CHLORIDE 0.9% 1,000 ML IV SCH ×2 (18:00→20:00)
[2019-03-30] MEDS ORDERED: ACETAMINOPHEN 325 MG TABLET PO PRN (18:00)
[2019-03-30] MEDS ORDERED: SODIUM CHLORIDE FLUSH 0.9% 10 ML SYRINGE IVP PRN (18:00)
[2019-03-30] MEDS ORDERED: ONDANSETRON 4 MG/2 ML VIAL IVP PRN (18:00)
[2019-03-30] MEDS ORDERED: THIAMINE 100 MG TABLET PO SCH (18:10)
[2019-03-30] MEDS ORDERED: LORazepam 2 MG/ML VIAL IVP PRN (18:23)
[2019-03-30] MEDS ORDERED: PRENATAL VITAMIN TABLET PO SCH (19:00)
[2019-03-30] MEDS: FAMOTIDINE 20 MG TABLET PO SCH (21:04)
--- NOTE | 2019-03-30 21:44 | HISTORY & PHYSICAL EXAMINATION ---
Chief Complaint - Chief Complaint Chief Complaint: AMS History of Present Illness - Admitted From Admitted From:: [facility] - History Obtained From Records Reviewed: yes History obtained from: patient and chart - History of Present Illness HPI Comment/Other: Patient seen and examined on 03/31/19 around 21:30pm Patient is a 58 y/o female who presented to the ED via EMS. She was at a friends house drinking. The friend went into the kitchen to get something and when she returned, the patient was on the floor and appeared to have passed out. Her friend was very alarmed and called EMS. Upon presentation she was found to have SBP in the 80's, lactic acid of 3.0 and an alcohol level of 312. He UA suggested a UTI. During my exam her response to questions are vague. Her response to most review of systems is "sometimes". As a result of the objective finding on presentation, she is being admitted for further treatment History - Past Medical History Cardiovascular: reports: Hypertension Respiratory: reports: Shortness of breath Neuro: reports: TIA Endocrine/Autoimmune: reports: HyPOthyroidism GI: reports: Hepatitis : reports: Other HEENT: reports: None Psych: reports: Depression, Anxiety Musculoskeletal: reports: Osteoarthritis Derm: reports: None MRSA Hx?: No Other Past Medical History: Vitiligo. - Past Surgical History General: reports: EGD, Other Ortho: reports: Other (left ankle surgical repair) - Family & Social History Family History: Mother: , CAD, Brother: Cancer (brother 1 and 2 : liver) Social History Notes: Reports alcohol use. She states that she rarely drinks. However her alcohol level was 312 today. She uses cannabinoids. Meds/Allgy - Home Medications Home Medications: Ambulatory Orders Medication Instructions Recorded Confirmed Omeprazole [PriLOSEC] 20 mg PO BID #60 capsule 06/08/17 07/12/17 Citalopram Hydrobromide 10 mg PO DAILY 03/30/19 03/30/19 [Citalopram HBr] Levothyroxine [Synthroid] 88 mcg PO QDAC 03/30/19 03/30/19 Losartan Potassium 25 mg PO DAILY 03/30/19 03/30/19 traZODone [Desyrel] 50 mg PO QPM 03/30/19 03/30/19 - Allergies Allergies/Adverse Reactions: Allergies Allergy/AdvReac Type Severity Reaction Status Date / Time No Known Drug Allergies Allergy Verified 03/30/19 14:09 Review of Systems - Constitutional Constitutional: reports: Fever, Chills - Eyes Eyes: denies: Amaurosis, Vision loss, Dipolpia - Ears, Nose & Throat Ears, Nose & Throat: denies: Nasal pain, Sore throat, Hoarseness - Cardiovascular Cariovascular: denies: Irregular heart rate, Palpitations, Chest pain, Edema, Lightheadedness, Syncope, Exertional dyspnea - Respiratory Respiratory: denies: Cough, Sputum production, Wheezing, SOB at rest, SOB with exertion - Gastrointestinal Gastrointestinal: reports: Nausea, Vomiting. denies: Abdominal pain, Abdominal distention, Constipation, Diarrhea - Genitourinary Genitourinary: reports: Frequency, Urgency. denies: Dysuria, Hematuria, Incontinence, Flank pain - Musculoskeletal Musculoskeletal: denies: Muscle pain, Back pain - Integumentary Integumentary: denies: Rash, Pruritis, Lesions, Dryness - Neurological Neurological: denies: General weakness, Focal weakness, Headache - Psychiatric Psychiatric: denies: Depression, Anxiety - Endocrine Endocrine: denies: Polyuria, Polydypsia - Hematologic/Lymphatic Hematologic/Lymphatic: denies: Anemia, Bruising Prior Level of Functionality: Patient is independent of activities of daily living. At the time of her last admission 5 years ago, it was documented that she was homeless. She she sees a counsellor at [facility] and she lives at one of their building on [address] in [facility] Exam - Vital Signs Vital Signs: Vital Signs x48h Temp Pulse Pulse Resp BP BP Pulse Ox 03/30/19 21:00 36.7 C 80 20 110/67 98 03/30/19 18:45 36.4 C L 71 19 87/50 L 99 03/30/19 18:12 76 18 87/57 L 99 03/30/19 17:00 35.5 C L 70 24 86/60 L 98 03/30/19 16:48 76 18 85/62 L 100 03/30/19 16:24 76 18 68/50 L 97 03/30/19 15:11 63 16 80/61 L 97 03/30/19 13:57 35.6 C L 62 20 70/48 L 95 - Physical Exam General Appearance: positive: Alert, Moderate distress, Other (Shivering) Eyes Bilateral: positive: Normal inspection, PERRL, EOMI ENT: positive: ENT inspection nml Neck: positive: Nml inspection, No JVD, Trachea midline Respiratory: positive: Chest non-tender, No respiratory distress, Breath sounds nml. negative: Wheezes, Rales, Rhonchi Cardiovascular: positive: Regular rate & rhythm, No murmur Abdomen: positive: Non-tender, No organomegaly, Nml bowel sounds, No distention. negative: Guarding, Rebound Back: positive: Nml inspection Skin: positive: Other (vitiligo) Extremities: positive: Non-tender, Full ROM, Nml appearance, No pedal edema Neurologic/Psychiatric: positive: Oriented x3, CN's nml (2-12), Motor nml, Sensation nml, Mood/affect nml Sepsis Event Note (H) - Evaluation Current Stage of Sepsis: Septic shock Possible source of Sepsis: positive: Genitourinary - Sepsis Criteria Sepsis Criteria: Suspected or Documented, Recorded Heart Rate greater than 90 bpm, WEB SERVICES DEVELOPER: altered consciousness (unrelated to primary neuro pathology), SBP less than 90 mmHg, Metabolic: lactate > 2 mmol/L Conclusion/Plan - Problem List (1) Septic shock Conclusion/Plan: 2/2 UTI Patient started on rocephin Will continue Urine culture pending IV hydration Trend lactic acid (2) Urinary tract infection Conclusion/Plan: On rocephin. IV hydration Trend lactic acid Qualifiers: Urinary tract infection type: site unspecified Hematuria presence: without hematuria Qualified Code(s): N39.0 - Urinary tract infection, site not specified (3) Acute alcohol intoxication Conclusion/Plan: Will monitor. CIWA ordered Qualifiers: Complication of substance-induced condition: with unspecified complication Qualified Code(s): F10.929 - Alcohol use, unspecified with intoxication, unspecified (4) Hypothyroidism Conclusion/Plan: Synthroid held due to elevated free T4 and low TSH (5) Hypotension Conclusion/Plan: Likely 2/2 UTI Will hold all antihypertensive medications (6) Depression Conclusion/Plan: On citalopram (7) GERD (gastroesophageal reflux disease) Conclusion/Plan: Famotidine ordered - Lab Results Fish Bones: 03/31/19 04:38 03/31/19 04:38 Core Measures - Anticipated LOS I expect patient to be DC'd or transferred within 96 hours.: Yes - DVT/VTE - Prophylaxis VTE/DVT Device ordered at admit?: Yes
[2019-03-30] MEDS: SODIUM CHLORIDE FLUSH 0.9% 10 ML SYRINGE IVP SCH (23:51)
[2019-03-31] MEDS: SODIUM CHLORIDE FLUSH 0.9% 10 ML SYRINGE IVP SCH ×2 (00:06→18:12)
[2019-03-31 01:09] LABS: BASOPHILS % (AUTO) 0.3 %; EOSINOPHILS % (AUTO) 0.3 %; HGB - HEMOGLOBIN 12.7 g/dL (12.0-16.0); LYMPHOCYTES # (AUTO) 1.5 10^3/uL (1.5-3.5); LYMPHOCYTES % (AUTO) 19.3 %; MEAN CORPUSCULAR HEMOGLOBIN 30.6 pg (27.0-31.0); MEAN CORPUSCULAR HGB CONC 32.2 g/dL (32.0-36.0); MEAN CORPUSCULAR VOLUME 95.2 fL (81.0-99.0); MEAN PLATELET VOLUME 8.7 fL (7.9-10.8); MONOCYTES # (AUTO) 0.4 10^3/uL (0.0-1.0); MONOCYTES % (AUTO) 4.9 %; NEUTROPHILS # (AUTO) 5.5 10^3/uL (1.5-6.6); NEUTROPHILS % (AUTO) 73.6 %; PLT - PLATELET COUNT 284 10^3/uL (130-450); RED BLOOD COUNT 4.15 10^6/uL (4.20-5.40); RED CELL DISTRIBUTION WIDTH 12.9 % (12.0-15.0); WHITE BLOOD COUNT 7.5 x10^3/uL (4.8-10.8)
[2019-03-31] MEDS: DEXTROSE 5%-0.45% NACL 1,000 ML IV SCH ×3 (01:36→20:18)
--- NOTE | 2019-03-31 03:23 | XRAY Report ---
Reason: multiple episodes of emesis Procedure Date: 03/31/2019 Accession Number: [id number] / [id number] Procedure: XR - Abdomen 1 View X-Ray CPT Code: 60202 FULL RESULT: EXAM: ABDOMEN RADIOGRAPHY EXAM DATE: 03/31/2019 02:39 AM. CLINICAL HISTORY: Multiple episodes of vomiting. COMPARISON: ABDOMEN 1 VIEW 10/06/2013 11:31 PM XR ACUTE ABDOMEN SERIES 02/25/2011 8:17 AM. TECHNIQUE: 1 view. FINDINGS: Bowel Gas Pattern: No abnormal dilated bowel loops. Other: There are multiple left-sided abdominal surgical clips. Moderate degenerative change within the spine. IMPRESSION: No definite acute abdominal abnormality. RADIA
[2019-03-31 04:43] LABS: BASOPHILS % (AUTO) 0.3 %; HGB - HEMOGLOBIN 11.9 g/dL (12.0-16.0); LYMPHOCYTES # (AUTO) 0.6 10^3/uL (1.5-3.5); LYMPHOCYTES % (AUTO) 8.8 %; MEAN CORPUSCULAR HEMOGLOBIN 30.7 pg (27.0-31.0); MEAN CORPUSCULAR HGB CONC 32.4 g/dL (32.0-36.0); MEAN CORPUSCULAR VOLUME 94.6 fL (81.0-99.0); MEAN PLATELET VOLUME 8.3 fL (7.9-10.8); MONOCYTES # (AUTO) 0.2 10^3/uL (0.0-1.0); MONOCYTES % (AUTO) 3.3 %; NEUTROPHILS # (AUTO) 5.8 10^3/uL (1.5-6.6); PLT - PLATELET COUNT 237 10^3/uL (130-450); RED BLOOD COUNT 3.88 10^6/uL (4.20-5.40); WHITE BLOOD COUNT 6.7 x10^3/uL (4.8-10.8)
[2019-03-31 04:52] LABS: CALCIUM 7.6 mg/dL (8.5-10.3); CREATININE 0.7 mg/dL (0.4-1.0)
[2019-03-31] MEDS: cefTRIAXone 2 GM in SODIUM CHLORIDE 0.9% MINIBAG 100 ML IV SCH (09:59)
[2019-03-31] MEDS: POLYETHYLENE GLYCOL 3350 17 GM PACKET PO SCH ×2 (09:59→10:16)
[2019-03-31] MEDS: ENOXAPARIN 40 MG/0.4 ML SYRINGE SUBQ SCH (10:00)
[2019-03-31] MEDS: FAMOTIDINE 20 MG TABLET PO SCH ×2 (10:06→21:26)
[2019-03-31] MEDS: MULTIVITAMIN 10 ML, THIAMINE INJ 100 MG, FOLIC ACID INJ 1 MG in SODIUM CHLORIDE 0.9% 1,... IV SCH (11:27)
--- NOTE | 2019-03-31 18:39 | PROVIDER PROGRESS NOTE ---
Assessment/Plan - Problem List (1) Hypotension Assessment/Plan: This is likely from infection plus dehydration. Her blood pressure medications are on hold. Continue IV hydration and treating the infection (2) Urinary tract infection Qualifiers: Urinary tract infection type: site unspecified Hematuria presence: without hematuria Qualified Code(s): N39.0 - Urinary tract infection, site not specified Assessment/Plan: She was started on empiric IV ceftriaxone. Await urine cultures, it is unclear if blood cultures were received by lab, per [facility]. (3) Acute alcohol intoxication Qualifiers: Complication of substance-induced condition: with unspecified complication Qualified Code(s): F10.929 - Alcohol use, unspecified with intoxication, unspecified Assessment/Plan: She had been drinking alcohol and there was a serum level measured. She is on a [facility] protocol (4) N&V (nausea and vomiting) Assessment/Plan: Possibly due to acute alcohol intoxication or gastritis. We will change regular diet down to full liquids and advance as tolerated. Antiemetics PRN (5) Depression Assessment/Plan: Will restart her home medication Deseryl and Citalopram for this (6) Hypothyroidism Assessment/Plan: Synthroid held due to elevated free T4 and low TSH (7) Anemia Assessment/Plan: We will check B12, folate levels and iron stores. Replace if they are low (8) Septic shock Assessment/Plan: Resolved, with normalized BP and Lactic Acid , by giving iv hydration and tx infection - Current Meds Current Meds: Current Medications Generic Name Dose Route Start Last Admin Trade Name Freq PRN Reason Stop Dose Admin Enoxaparin Sodium 40 mg 03/31/19 09:00 03/31/19 10:00 Lovenox SUBQ 40 mg DAILY NACHO Administration Famotidine 20 mg 03/30/19 21:00 03/31/19 10:06 Pepcid PO 20 mg BID NACHO Administration Ceftriaxone Sodium 2 gm/ 100 mls @ 200 mls/hr 03/31/19 09:00 03/31/19 11:17 Sodium Chloride IV Infused DAILY NACHO Infusion Multivitamins 10 ml/ Thiamine 1,011.2 mls @ 100 mls/hr 03/31/19 09:00 03/31/19 11:27 HCl 100 mg/ Folic Acid 1 mg/ IV 100 mls/hr Sodium Chloride DAILY NACHO Administration Dextrose/Sodium Chloride 1,000 mls @ 125 mls/hr 03/31/19 02:00 03/31/19 09:59 D5.45ns IV 125 mls/hr .Q8H NACHO Administration Ondansetron HCl 4 mg 03/30/19 18:00 03/31/19 00:06 Zofran Inj IVP 4 mg Q6HR PRN Administration Nausea / Vomiting Polyethylene Glycol 17 gm 03/31/19 09:00 03/31/19 10:16 Miralax PO Not Given DAILY NACHO Sodium Chloride 10 ml 03/31/19 01:00 03/31/19 18:12 Normal Saline Flush 0.9% IVP Not Given 0100,0900,1700 NACHO - Lab Result Fish Bone Diagrams: 04/01/19 05:32 04/01/19 05:32 - Additional Planning My Orders: My Active Orders 03/31/19 Lunch DIET [Soft (Low Fiber) Diet] [DIET] Subjective - Subjective Patient Reports: Feeling Better, Resting Comfortably Objective Vital Signs: Vital Signs - 24 hr 03/30/19 03/30/19 03/30/19 18:45 20:00 21:00 Temperature 36.4 C L 36.7 C 36.7 C Heart Rate 71 Heart Rate [ 71 80 Brachial] Respiratory 19 18 20 Rate Blood Pressure [Left Brachial artery] Blood Pressure 87/50 L 110/67 [Right Brachial artery] O2 Saturation 99 99 98 03/30/19 03/31/19 03/31/19 23:38 01:07 02:57 Temperature 36.4 C L 36.5 C 36.8 C Heart Rate Heart Rate [ 98 105 H 98 Brachial] Respiratory 18 18 16 Rate Blood Pressure 120/81 H [Left Brachial artery] Blood Pressure 106/64 124/69 [Right Brachial artery] O2 Saturation 96 97 98 03/31/19 03/31/19 03/31/19 08:06 13:19 16:08 Temperature 37.5 C 37.2 C 37.3 C Heart Rate Heart Rate [ 100 103 H 94 Brachial] Respiratory 16 18 14 Rate Blood Pressure 105/65 110/58 L [Left Brachial artery] Blood Pressure 116/58 L [Right Brachial artery] O2 Saturation 97 98 97 Oxygen O2 Source Room air I&O (Last 24 Hrs): Intake and Output Totals x24h 03/29/19 03/30/19 03/31/19 23:59 23:59 23:59 Intake Total 3100 2840 Output Total 900 3140 Balance 2200 -300 General: Alert, Oriented x3 HEENT: Mucous membr. moist/pink Neck: Supple, No JVD Neuro: Alert, Non Focal Cardiovascular: Regular rate, No murmurs Respiratory: No respiratory distress, Breath sounds nml Abdomen: Soft Extremities: No edema, Other (Vitiligo) - Results Results: Laboratory Results WBC 6.7 x10^3/uL (4.8-10.8) 03/31/19 04:38 RBC 3.88 10^6/uL (4.20-5.40) L 03/31/19 04:38 Hgb 11.9 g/dL (12.0-16.0) L 03/31/19 04:38 Hct 36.7 % (37.0-47.0) L 03/31/19 04:38 MCV 94.6 fL (81.0-99.0) 03/31/19 04:38 MCH 30.7 pg (27.0-31.0) 03/31/19 04:38 MCHC 32.4 g/dL (32.0-36.0) 03/31/19 04:38 RDW 13.0 % (12.0-15.0) 03/31/19 04:38 Plt Count 237 10^3/uL (130-450) 03/31/19 04:38 MPV 8.3 fL (7.9-10.8) 03/31/19 04:38 Neut # (Auto) 5.8 10^3/uL (1.5-6.6) 03/31/19 04:38 Lymph # (Auto) 0.6 10^3/uL (1.5-3.5) L 03/31/19 04:38 [place] # (Auto) 0.2 10^3/uL (0.0-1.0) 03/31/19 04:38 Eos # (Auto) 0.0 10^3/uL (0.0-0.7) 03/31/19 04:38 Baso # (Auto) 0.0 10^3/uL (0.0-0.1) 03/31/19 04:38 Absolute Nucleated RBC 0.00 x10^3/uL 03/31/19 04:38 Nucleated RBC % 0.0 /100WBC 03/31/19 04:38 Sodium 145 mmol/L (135-145) 03/31/19 04:38 Potassium 3.8 mmol/L (3.5-5.0) 03/31/19 04:38 Chloride 119 mmol/L (101-111) H 03/31/19 04:38 Carbon Dioxide 16 mmol/L (21-32) L 03/31/19 04:38 Anion Gap 10.0 (6-13) 03/31/19 04:38 BUN 9 mg/dL (6-20) 03/31/19 04:38 Creatinine 0.7 mg/dL (0.4-1.0) 03/31/19 04:38 Estimated GFR (MDRD) 86 (>89) L 03/31/19 04:38 Glucose 97 mg/dL (70-100) 03/31/19 04:38 Lactic Acid 0.7 mmol/L (0.5-2.2) 03/31/19 07:58 Calcium 7.6 mg/dL (8.5-10.3) L 03/31/19 04:38 Magnesium 1.7 mg/dL (1.7-2.8) 03/31/19 04:38 Total Bilirubin 1.0 mg/dL (0.2-1.0) 03/30/19 16:23 AST 36 IU/L (10-42) 03/30/19 16:23 ALT 37 IU/L (10-60) 03/30/19 16:23 Alkaline Phosphatase 59 IU/L (42-121) 03/30/19 16:23 Ammonia 14.4 umol/L (7-35) 03/30/19 16:30 Total Protein 5.6 g/dL (6.7-8.2) L 03/30/19 16:23 Albumin 3.5 g/dL (3.2-5.5) 03/30/19 16:23 Globulin 2.1 g/dL (2.1-4.2) 03/30/19 16:23 Albumin/Globulin Ratio 1.7 (1.0-2.2) 03/30/19 16:23 TSH < 0.08 uIU/mL (0.34-5.60) L 03/30/19 16:23 Free T4 3.04 ng/dL (0.58-1.64) H 03/30/19 16:30 Urine Color YELLOW 03/30/19 14:20 Urine Clarity HAZY (CLEAR) 03/30/19 14:20 Urine pH 6.0 PH (5.0-7.5) 03/30/19 14:20 Ur Specific [place] <=1.005 (1.002-1.030) 03/30/19 14:20 Urine Protein NEGATIVE mg/dL (NEGATIVE) 03/30/19 14:20 Urine Glucose (UA) NEGATIVE mg/dL (NEGATIVE) 03/30/19 14:20 Urine Ketones NEGATIVE mg/dL (NEGATIVE) 03/30/19 14:20 Urine Occult Blood NEGATIVE (NEGATIVE) 03/30/19 14:20 Urine Nitrite POSITIVE (NEGATIVE) H 03/30/19 14:20 Urine Bilirubin NEGATIVE (NEGATIVE) 03/30/19 14:20 Urine Urobilinogen 0.2 (NORMAL) E.U./dL (NORMAL) 03/30/19 14:20 Ur Leukocyte Esterase NEGATIVE (NEGATIVE) 03/30/19 14:20 Urine RBC 0-5 /HPF (0-5) 03/30/19 14:20 Urine WBC 0-3 /HPF (0-5) 03/30/19 14:20 Ur Squamous Epith Cells RARE Squamous (<= Few) 03/30/19 14:20 Urine Bacteria Few /HPF (None Seen) 03/30/19 14:20 Ur Microscopic Review INDICATED 03/30/19 14:20 Urine Culture Comments INDICATED 03/30/19 14:20 Salicylates < 6.0 mg/dL 03/30/19 16:23 Urine Opiates Screen NEGATIVE (NEGATIVE) 03/30/19 14:20 Ur Oxycodone Screen NEGATIVE (NEGATIVE) 03/30/19 14:20 Urine Methadone Screen NEGATIVE (NEGATIVE) 03/30/19 14:20 Ur Propoxyphene Screen NEGATIVE (NEGATIVE) 03/30/19 14:20 Acetaminophen < 10 ug/mL (10-30) L 03/30/19 16:23 Ur Barbiturates Screen NEGATIVE (NEGATIVE) 03/30/19 14:20 Ur Tricyclics Screen NEGATIVE (NEGATIVE) 03/30/19 14:20 Ur Phencyclidine Scrn NEGATIVE (NEGATIVE) 03/30/19 14:20 Ur Amphetamine Screen NEGATIVE (NEGATIVE) 03/30/19 14:20 U Methamphetamines Scrn NEGATIVE (NEGATIVE) 03/30/19 14:20 U Benzodiazepines Scrn NEGATIVE (NEGATIVE) 03/30/19 14:20 Urine Cocaine Screen NEGATIVE (NEGATIVE) 03/30/19 14:20 U Cannabinoids Screen POSITIVE (NEGATIVE) H 03/30/19 14:20 Ethyl Alcohol 312.9 mg/dL 03/30/19 16:23 - Procedures Procedures: Procedures CONIZATION OF CERVIX (11/21/13) EXCISION OF DUODENUM, ENDO, DIAGN (07/12/17) EXCISION OF ESOPHAGOGASTRIC JUNCTION, ENDO, DIAGN (07/12/17) EXCISION OF SIGMOID COLON, ENDO, DIAGN (07/12/17) OP RED-INT FIX TIB/FIBUL (02/16/13) Sepsis Event Note (H) - Evaluation Current Stage of Sepsis: Septic shock Possible source of Sepsis: positive: Genitourinary - Sepsis Criteria Sepsis Criteria: Suspected or Documented, Recorded Heart Rate greater than 90 bpm, NEWS LIBRARY DIRECTOR: altered consciousness (unrelated to primary neuro pathology), SBP less than 90 mmHg, Metabolic: lactate > 2 mmol/L
[2019-03-31] MEDS ORDERED: traZODone 50 MG TABLET PO SCH (21:00)
[2019-04-01] MEDS: SODIUM CHLORIDE FLUSH 0.9% 10 ML SYRINGE IVP SCH ×2 (03:16→09:22)
[2019-04-01] MEDS: DEXTROSE 5%-0.45% NACL 1,000 ML IV SCH (04:33)
[2019-04-01 05:47] LABS: EOSINOPHILS # (AUTO) 0.2 10^3/uL (0.0-0.7); HGB - HEMOGLOBIN 10.9 g/dL (12.0-16.0); LYMPHOCYTES # (AUTO) 1.3 10^3/uL (1.5-3.5); LYMPHOCYTES % (AUTO) 42.6 %; MEAN CORPUSCULAR HEMOGLOBIN 30.8 pg (27.0-31.0); MEAN CORPUSCULAR HGB CONC 32.8 g/dL (32.0-36.0); MEAN CORPUSCULAR VOLUME 93.8 fL (81.0-99.0); MEAN PLATELET VOLUME 8.7 fL (7.9-10.8); MONOCYTES # (AUTO) 0.3 10^3/uL (0.0-1.0); MONOCYTES % (AUTO) 10.6 %; NEUTROPHILS # (AUTO) 1.3 10^3/uL (1.5-6.6); NEUTROPHILS % (AUTO) 41.5 %; PLT - PLATELET COUNT 209 10^3/uL (130-450); RED BLOOD COUNT 3.54 10^6/uL (4.20-5.40); RED CELL DISTRIBUTION WIDTH 12.9 % (12.0-15.0)
[2019-04-01 05:59] LABS: CALCIUM 8.2 mg/dL (8.5-10.3); CREATININE 0.7 mg/dL (0.4-1.0)
[2019-04-01] MEDS ORDERED: CITALOPRAM 10 MG TABLET PO SCH (09:00)
[2019-04-01] MEDS: POLYETHYLENE GLYCOL 3350 17 GM PACKET PO SCH (09:20)
[2019-04-01] MEDS: cefTRIAXone 2 GM in SODIUM CHLORIDE 0.9% MINIBAG 100 ML IV SCH (09:21)
[2019-04-01] MEDS: FAMOTIDINE 20 MG TABLET PO SCH (09:21)
[2019-04-01] MEDS: ENOXAPARIN 40 MG/0.4 ML SYRINGE SUBQ SCH (09:21)
[2019-04-01] MEDS ORDERED: POTASSIUM CHLORIDE 20 MEQ TABLET PO SCH (10:31)
[2019-04-01] MEDS: MULTIVITAMIN 10 ML, THIAMINE INJ 100 MG, FOLIC ACID INJ 1 MG in SODIUM CHLORIDE 0.9% 1,... IV SCH (10:41)
--- NOTE | 2019-04-01 11:46 | Discharge Plan ---
Discharge Plan Problem Reviewed?: Yes Disposition: Home, Self Care Condition: Stable Prescriptions: Cephalexin [Keflex] 250 mg PO QID #28 capsule Levothyroxine [Synthroid] 75 mcg PO QDAC #10 tablet Thiamine [Vitamin B-1] 100 mg PO DAILY #10 tablet Diet: Regular Activity Restrictions: Activity as Tolerated Shower Restrictions: No (fall precaution) Instruction Topics: UTI, Cephalexin tablets or capsules, Levothyroxine tablets, ED Hypothyroidism, Addiction Alcohol Signs Health Concerns: UTI, hypothyroidism Plan of Treatment: you were found to have UTI, Keflex is prescribed for you to finish the treatment course. your levothyroxine dosage is reduced. your lab test review found you do not need to take this high dosage, followup your PCP continue management. advise you reduce or even quit your alcohol intake. Care Goals: stabilization and improvement of your medical conditions Assessment: assessment as the above Additional Instructions or Follow Up instructions: you may followup your PCP in one week. Should your symptoms return or worsen, you may present ER or call 911 for help. No Smoking: If you smoke, Please STOP! Call for help. Follow-up with: Reyna Dickson ARNP, CHRONOMETER ASSEMBLER AND ADJUSTER-C [Credentialed Staff Provider] -
--- NOTE | 2019-04-01 11:58 | DISCHARGE SUMMARY ---
Discharge Summary Admit Date: 03/30/19 Discharge Date: 04/01/19 Discharging Provider: [facility]U Primary Care Provider: Dr. Reyna Arteaga Condition at Discharge: Stable Discharge Disposition: 01 Home, Self Care Discharge Facility Name: home - DIAGNOSES Admission Diagnoses: (1) Septic shock (2) Urinary tract infection (3) Acute alcohol intoxication (4) Hypothyroidism (5) Hypotension (6) Depression (7) GERD (gastroesophageal reflux disease) Discharge Diagnoses with Status of Each Condition: (1) Hypotension resolved (2) Urinary tract infection UA culture reveals positive for Ecoli. According to sensitivity study, pt is prescribed Keflex for finishing the treatment course (3) Acute alcohol intoxication resolved. pt is alert and oriented plus 3. pt state she will quit alcohol (4) N&V (nausea and vomiting) Assessment/Plan: resolved. pt tolerate regular diet (5) Depression stable (6) Hypothyroidism pt's home levothyroxine is reduced from 100mcg to 75 mcg due to lower TSH and high elevated Free T4. advise pt followup her PCP continue management (7) Anemia stable (8) Septic shock resolved. pt is hemodynamic stable now. - HPI History of Present Illness: refer from Dr. Emery's HPI on 03/30/19 Patient seen and examined on 03/31/19 around 21:30pm Patient is a 58 y/o female who presented to the ED via EMS. She was at a friends house drinking. The friend went into the kitchen to get something and when she returned, the patient was on the floor and appeared to have passed out. Her friend was very alarmed and called EMS. Upon presentation she was found to have SBP in the 80's, lactic acid of 3.0 and an alcohol level of 312. He UA suggested a UTI. During my exam her response to questions are vague. Her response to most review of systems is "sometimes". As a result of the objective finding on presentation, she is being admitted for further treatment - HOSPITAL COURSE Hospital Course: pt was admitted for acute alcoholic intoxication with septic shock, her SBP was around 70-80. pt was found to have UTI as well. pt was treated with antibiotic and hydration with IVF of NS. after treatment, pt became hemodynamic stable. pt was prescribed antibiotics to finish her UTI treatment course. The detail hospital course is as the below: 1) Hypotension resolved (2) Urinary tract infection UA culture reveals positive for Ecoli. According to sensitivity study, pt is prescribed Keflex for finishing the treatment course (3) Acute alcohol intoxication resolved. pt is alert and oriented plus 3. pt state she will quit alcohol (4) N&V (nausea and vomiting) Assessment/Plan: resolved. pt tolerate regular diet (5) Depression stable (6) Hypothyroidism pt's home levothyroxine is reduced from 100mcg to 75 mcg due to lower TSH and high elevated Free T4. advise pt followup her PCP continue management (7) Anemia stable (8) Septic shock resolved. pt is hemodynamic stable now. - ALLERGIES Allergies/Adverse Reactions: Allergies Allergy/AdvReac Type Severity Reaction Status Date / Time No Known Drug Allergies Allergy Verified 03/30/19 14:09 - MEDICATIONS Home Medications: Ambulatory Orders Medication Instructions Recorded Confirmed Citalopram Hydrobromide 10 mg PO DAILY 03/30/19 03/30/19 [Citalopram HBr] Losartan Potassium 25 mg PO DAILY 03/30/19 03/31/19 traZODone [Desyrel] 50 mg PO QPM 03/30/19 03/31/19 Omeprazole [PriLOSEC] 20 mg PO QDAC 03/31/19 03/31/19 Cephalexin [Keflex] 250 mg PO QID #28 capsule 04/01/19 Levothyroxine [Synthroid] 75 mcg PO QDAC #10 tablet 04/01/19 Thiamine [Vitamin B-1] 100 mg PO DAILY #10 tablet 04/01/19 - PHYSICAL EXAM AT DISCHARGE General Appearance: positive: No acute distress, Alert. negative: Lethargic Eyes Bilateral: positive: Normal inspection, PERRL, No lid inflammation, Conjunctivae nml ENT: positive: ENT inspection nml, Pharynx nml, No signs of dehydration. negative: Purulent nasal drainage, Pharyngeal erythema, Oral lesions Neck: positive: Nml inspection, Thyroid nml, No JVD. negative: Trachea midline, Thyromegaly, Lymphadenopathy (R), Lymphadenopathy (L), Stiff neck, Swelling/bruising, Tracheal deviation Respiratory: positive: Chest non-tender, No respiratory distress, Breath sounds nml. negative: Wheezes, Rales, Rhonchi Cardiovascular: positive: Regular rate & rhythm, No murmur, No gallop. negative: Irregularly irregular, Extrasystoles, Tachycardia, Bradycardia, JVD present, Systolic murmur, Diastolic murmur Peripheral Pulses: positive: 2+ Abdomen: positive: Non-tender, No organomegaly, Nml bowel sounds, No distention. negative: Tenderness, Guarding, Rebound Back: positive: Nml inspection. negative: CVA tenderness (R), CVA tenderness (L) Skin: positive: Color nml, No rash, Warm, Dry. negative: Cyanosis, Diaphoresis, Pallor Extremities: positive: Non-tender, Full ROM, Nml appearance. negative: Calf tenderness, Joint swelling, Abiola's sign/cords Neurologic/Psychiatric: positive: Oriented x3, Motor nml, Sensation nml, Mood/affect nml. negative: Weakness, Sensory loss, Facial droop, Slurred/abnml speech, Depressed mood/affect - LABS Result Diagrams: 04/01/19 05:32 04/01/19 05:32 - SEPSIS Current Stage of Sepsis: Septic shock Possible source of Sepsis: Genitourinary Sepsis Criteria: Suspected or Documented, Recorded Heart Rate greater than 90 bpm, LEAD BURNER SUPERVISOR: altered consciousness (unrelated to primary neuro pathology), SBP less than 90 mmHg, Metabolic: lactate > 2 mmol/L - FOLLOW UP Follow Up: you were found to have UTI, Keflex is prescribed for you to finish the treatment course. your levothyroxine dosage is reduced. your lab test review found you do not need to take this high dosage, followup your PCP continue management. advise you reduce or even quit your alcohol intake. you may followup your PCP in one week. Should your symptoms return or worsen, you may present ER or call 911 for help. - TIME SPENT Time Spent in Discharge (Minutes): 50
[2019-04-01 12:22] VITALS: BP 134/93
[2019-04-02] MEDS ORDERED: LEVOTHYROXINE 75 MCG TABLET PO SCH (07:00)
[2019-04-02] MEDS ORDERED: LEVOTHYROXINE 25 MCG TABLET PO SCH (07:00)
== END 2019-04-01 15:06 | disposition home or self-care (01) | DRG 871 ==
LOC: EDUNIT# → ED 13:55 → MS2 18:00
PROVIDERS: ADMIT Nurse Practitioner Gerontology; ATTEND Internal Medicine
DX: A41.51 Sepsis due to Escherichia coli [E. coli] (principal); R65.21 Severe sepsis with septic shock; N39.0 Urinary tract infection, site not specified; E87.2 Acidosis; F10.929 Alcohol use, unspecified with intoxication, unspecified; Y90.8 Blood alcohol level of 240 mg/100 ml or more; F32.9 Major depressive disorder, single episode, unspecified; E86.0 Dehydration; I10 Essential (primary) hypertension; E03.9 Hypothyroidism, unspecified; K21.9 Gastro-esophageal reflux disease without esophagitis; D64.9 Anemia, unspecified; R11.2 Nausea with vomiting, unspecified; F17.200 Nicotine dependence, unspecified, uncomplicated; M19.90 Unspecified osteoarthritis, unspecified site; R35.0 Frequency of micturition; R39.15 Urgency of urination; Z72.89 Other problems related to lifestyle; Z79.899 Other long term (current) drug therapy; Z91.81 History of falling; Z86.73 Personal history of transient ischemic attack (TIA), and cerebral infarction without residual deficits; Z87.19 Personal history of other diseases of the digestive system
CPT/HCPCS: 36415; 70450; 71045; 72125; 74018; 80048; 80053; 80306; 80307; 80320; 80329; 81001; 82140; 83605; 83735; 84439; 84443; 85025; 87077; 87086; 87181; 93005; 96365; 99285; 99291; A9270; J1650; J3411; 81003

== ENCOUNTER 2019-04-10 08:57 | Outpatient (CLI) | payer MEDICAID | END 2019-04-10 23:59 | disposition home or self-care (01) | LOC: LAB.R 08:57 | PROVIDERS: ATTEND Nurse Practitioner | DX: R30.0 Dysuria (principal) | CPT/HCPCS: 87086 ==

== ENCOUNTER 2019-05-25 11:09 | Outpatient (CLI) | payer MEDICAID ==
[2019-05-25 11:41] LABS: CALCIUM 9.1 mg/dL (8.5-10.3); CREATININE 0.7 mg/dL (0.4-1.0)
[2019-05-25 12:12] LABS: HB2 TOTAL 14.4 g/dL; HEMOGLOBIN A1C 0.5 g/dL; HEMOGLOBIN A1C % 5.3 % (4.6-6.2)
[2019-05-25 16:32] LABS: FREE T4 (FREE THYROXINE) 1.17 ng/dL (0.58-1.64)
== END 2019-05-25 11:10 | disposition home or self-care (01) ==
LOC: LAB 11:09
PROVIDERS: ATTEND Nurse Practitioner
DX: Q60.0 Renal agenesis, unilateral (principal); E03.9 Hypothyroidism, unspecified
CPT/HCPCS: 36415; 80048; 83036; 84439; 84443

== ENCOUNTER 2019-06-01 11:16 | Outpatient (CLI) | payer MEDICAID ==
[2019-06-01 12:10] LABS: CALCIUM 8.8 mg/dL (8.5-10.3); CREATININE 0.7 mg/dL (0.4-1.0)
[2019-06-01 12:18] LABS: HB2 TOTAL 14.4 g/dL; HEMOGLOBIN A1C 0.55 g/dL; HEMOGLOBIN A1C % 5.6 % (4.6-6.2)
[2019-06-01 12:32] LABS: FREE T4 (FREE THYROXINE) 1.91 ng/dL (0.58-1.64)
== END 2019-06-01 11:17 | disposition home or self-care (01) ==
LOC: LAB 11:16
PROVIDERS: ATTEND Nurse Practitioner
DX: E03.9 Hypothyroidism, unspecified (principal); Z90.5 Acquired absence of kidney
CPT/HCPCS: 36415; 80048; 83036; 84439; 84443; 84481; 86800

== ENCOUNTER 2019-07-23 07:20 | Outpatient (CLI) | payer MEDICAID ==
[2019-07-23 08:12] LABS: THYROID STIMULATING HORMONE < 0.08 uIU/mL (0.34-5.60)
== END 2019-07-23 07:21 | disposition home or self-care (01) ==
LOC: LAB 07:20
PROVIDERS: ATTEND Nurse Practitioner
DX: E03.9 Hypothyroidism, unspecified (principal)
CPT/HCPCS: 36415; 84439; 84443; 84481

== ENCOUNTER 2019-07-27 07:00 | Outpatient (CLI) | payer MEDICAID | END 2019-07-27 23:59 | disposition home or self-care (01) | LOC: LAB.R 07:00 | PROVIDERS: ATTEND Nurse Practitioner | DX: K52.9 Noninfective gastroenteritis and colitis, unspecified (principal) | CPT/HCPCS: 87493 ==

== ENCOUNTER 2019-08-06 11:10 | Outpatient (CLI) | payer MEDICAID ==
[2019-08-06 11:37] LABS: BASOPHILS % (AUTO) 0.3 %; EOSINOPHILS # (AUTO) 0.1 10^3/uL (0.0-0.7); EOSINOPHILS % (AUTO) 1.3 %; HGB - HEMOGLOBIN 14.6 g/dL (12.0-16.0); LYMPHOCYTES % (AUTO) 34.2 %; MEAN CORPUSCULAR HEMOGLOBIN 30.9 pg (27.0-31.0); MEAN CORPUSCULAR VOLUME 93.9 fL (81.0-99.0); MEAN PLATELET VOLUME 8.7 fL (7.9-10.8); MONOCYTES # (AUTO) 0.4 10^3/uL (0.0-1.0); MONOCYTES % (AUTO) 6.2 %; NEUTROPHILS # (AUTO) 3.4 10^3/uL (1.5-6.6); NEUTROPHILS % (AUTO) 57.5 %; PLT - PLATELET COUNT 327 10^3/uL (130-450); RED BLOOD COUNT 4.72 10^6/uL (4.20-5.40); RED CELL DISTRIBUTION WIDTH 13.2 % (12.0-15.0); WHITE BLOOD COUNT 5.9 x10^3/uL (4.8-10.8)
[2019-08-06 12:00] LABS: BILIRUBIN,URINE NEGATIVE (NEGATIVE); CLARITY,URINE CLEAR (CLEAR); GLUCOSE, URINE (UA) NEGATIVE (NEGATIVE); KETONES,URINE (UA) NEGATIVE (NEGATIVE); LEUKOCYTE ESTERASE, URINE SMALL (NEGATIVE); NITRITE,URINE POSITIVE (NEGATIVE); OCCULT BLOOD,URINE NEGATIVE (NEGATIVE); PROTEIN,URINE NEGATIVE (NEGATIVE); UROBILINOGEN,URINE 0.2 (NORMAL) E.U./dL (NORMAL)
[2019-08-06 12:04] LABS: ALBUMIN 4.3 g/dL (3.2-5.5); ALBUMIN/GLOBULIN RATIO 1.4 (1.0-2.2); BILIRUBIN,TOTAL 0.9 mg/dL (0.2-1.0); CALCIUM 9.1 mg/dL (8.5-10.3); CREATININE 0.8 mg/dL (0.4-1.0); TOTAL PROTEIN 7.3 g/dL (6.7-8.2)
[2019-08-06 12:11] LABS: BACTERIA,URINE Rare /HPF (None Seen); RBC,URINE 0-5 /HPF (0-5); SQUAMOUS EPITHELIAL CELL,UR NONE SEEN (<= Few)
== END 2019-08-06 11:11 | disposition home or self-care (01) ==
LOC: LAB 11:10
PROVIDERS: ATTEND Nurse Practitioner
DX: R19.7 Diarrhea, unspecified (principal); M25.549 Pain in joints of unspecified hand; R53.82 Chronic fatigue, unspecified; Z87.448 Personal history of other diseases of urinary system; R35.0 Frequency of micturition
CPT/HCPCS: 36415; 80053; 81001; 81003; 85025; 87077; 87086; 87181

== ENCOUNTER 2019-08-30 17:23 | Emergency (ER) | payer MEDICAID ==
--- NOTE | 2019-08-30 18:17 | XRAY Report ---
Reason: cough, shortness of breath Procedure Date: 08/30/2019 Accession Number: [id number] / [id number] Procedure: XR - Chest 2 View X-Ray CPT Code: 29183 Final Report FULL RESULT: EXAM: CHEST RADIOGRAPHY EXAM DATE: 08/30/2019 06:01 PM. CLINICAL HISTORY: Cough, shortness of breath. COMPARISON: CHEST 1 VIEW 03/30/2019 4:56 PM. TECHNIQUE: 2 views. FINDINGS: Lungs/Pleura: No focal opacities evident. No pleural effusion. No pneumothorax. Normal volumes. Mediastinum: Heart and mediastinal contours are unremarkable. Other: Left upper quadrant surgical clips. IMPRESSION: No acute cardiopulmonary disease seen. RADIA
[2019-08-30] MEDS ORDERED: IPRATROPIUM/ALBUTEROL 3 ML NEB INH STA (19:28)
[2019-08-30 20:52] VITALS: BP 171/95
--- NOTE | 2019-08-30 20:53 | ED Physician Documentation ---
PD HPI DYSPNEA - Stated complaint Stated Complaint: SOA/BLOOD IN STOOL - Chief complaint Chief Complaint: Resp - History obtained from History obtained from: Patient (59-year-old female comes in today for shortness of breath. She has a chronic history of asthma. She uses albuterol inhaler at home for it. She was over at [place] in [place] visiting with her friend she stopped by her provider over there and they told her to stop by the hospital to be checked out for the covid-19 virus. She does not believe that this is anything more than her asthma flaring up. She states that when she starts getting sick her asthma flares up. She denies fevers chills nausea vomiting diarrhea occasional headache relieved with Tylenol.) PD PAST MEDICAL HISTORY - Past Medical History Cardiovascular: Hypertension Respiratory: Shortness of breath Neuro: TIA Endocrine/Autoimmune: None, HyPOthyroidism GI: Hepatitis : Other HEENT: None Psych: Depression, Anxiety Musculoskeletal: Osteoarthritis Derm: None - Past Surgical History Past Surgical History: Yes General: EGD, Other Ortho: Other - Present Medications Home Medications: Ambulatory Orders Medication Instructions Recorded Confirmed Citalopram Hydrobromide 10 mg PO DAILY 03/30/19 03/30/19 [Citalopram HBr] Losartan Potassium 25 mg PO DAILY 03/30/19 03/31/19 traZODone [Desyrel] 50 mg PO QPM 03/30/19 03/31/19 Omeprazole [PriLOSEC] 20 mg PO QDAC 03/31/19 03/31/19 Cephalexin [Keflex] 250 mg PO QID #28 capsule 04/01/19 Levothyroxine [Synthroid] 75 mcg PO QDAC #10 tablet 04/01/19 Thiamine [Vitamin B-1] 100 mg PO DAILY #10 tablet 04/01/19 Albuterol Sulfate [Proair Hfa 1 - 2 puffs INH Q4H PRN #1 inhaler 08/30/19 Inhaler] - Allergies Allergies/Adverse Reactions: Allergies Allergy/AdvReac Type Severity Reaction Status Date / Time No Known Drug Allergies Allergy Verified 08/30/19 17:41 - Social History Does the pt smoke?: Yes Smoking Status: Current every day smoker Does the pt drink ETOH?: Yes Does the pt have substance abuse?: No PD ED PE NORMAL - General General: Alert and oriented X 3, Well developed/nourished - HEENT HEENT: Atraumatic, PERRL, EOMI, Ears normal, Moist mucous membranes, Pharynx benign - Neck Neck: No adenopathy - Cardiac Cardiac: Other (irregular) - Abdomen Abdomen: Normal bowel sounds, Soft, Non tender PD ED PE EXPANDED - General General: Anxious - Cardiac Cardiac: Other (irregular) - Respiratory Respiratory: Labored, Wheezing, Rhonchi, Other (Diffuse throughout.) Results - Vitals Vitals: Vital Signs - 24 hr 08/30/19 08/30/19 08/30/19 17:37 19:12 20:08 Temperature 36 C L Heart Rate 76 76 63 Respiratory 24 16 20 Rate Blood Pressure 129/83 H 114/76 O2 Saturation 96 99 Oxygen O2 Source Room air - Labs Labs: Laboratory Tests 08/30/19 19:37 Influenza A (Rapid) Negative Influenza B (Rapid) Negative PD MEDICAL DECISION MAKING - ED course Complexity details: reviewed results, re-evaluated patient, considered differential, d/w patient Departure - Departure Disposition: 01 Home, Self Care Clinical Impression: Asthma Qualifiers: Asthma severity: moderate Asthma persistence: persistent Asthma complication type: unspecified Qualified Code(s): J45.40 - Moderate persistent asthma, uncomplicated Condition: Fair Instructions: Asthma Dc Prescriptions: Albuterol Sulfate [Proair Hfa Inhaler] 1 - 2 puffs INH Q4H PRN #1 inhaler PRN Reason: Shortness Of Air/Wheezing Comments: As we discussed in the ER your flu test was negative today, your chest x-ray was normal no acute changes. I have refilled your albuterol inhaler for you to use. You can use Tylenol ibuprofen for fevers and body aches. Follow-up with your primary care physician next week if you fail to improve.
== END 2019-08-30 21:17 | disposition home or self-care (01) ==
LOC: ED 17:23
DX: J45.40 Moderate persistent asthma, uncomplicated (principal); I10 Essential (primary) hypertension; F17.200 Nicotine dependence, unspecified, uncomplicated
CPT/HCPCS: 71046; 82272; 87275; 87276; 94640; 99281; 99284

== ENCOUNTER 2019-09-03 08:00 | Outpatient (CLI) | payer MEDICAID | END 2019-09-03 23:59 | disposition home or self-care (01) | LOC: LAB.R 08:00 | PROVIDERS: ATTEND Nurse Practitioner | DX: R06.02 Shortness of breath (principal); R05 Cough; J45.909 Unspecified asthma, uncomplicated | CPT/HCPCS: 81599 ==

== ENCOUNTER 2019-09-03 11:31 | Outpatient (CLI) | payer MEDICAID ==
[2019-09-03 11:52] LABS: BASOPHILS % (AUTO) 0.5 %; EOSINOPHILS # (AUTO) 0.1 10^3/uL (0.0-0.7); EOSINOPHILS % (AUTO) 2.1 %; HGB - HEMOGLOBIN 15.2 g/dL (12.0-16.0); LYMPHOCYTES # (AUTO) 2.2 10^3/uL (1.5-3.5); LYMPHOCYTES % (AUTO) 37.8 %; MEAN CORPUSCULAR HEMOGLOBIN 29.8 pg (27.0-31.0); MEAN CORPUSCULAR HGB CONC 31.9 g/dL (32.0-36.0); MEAN CORPUSCULAR VOLUME 93.5 fL (81.0-99.0); MEAN PLATELET VOLUME 9.1 fL (7.9-10.8); MONOCYTES # (AUTO) 0.3 10^3/uL (0.0-1.0); MONOCYTES % (AUTO) 5.6 %; NEUTROPHILS # (AUTO) 3.1 10^3/uL (1.5-6.6); NEUTROPHILS % (AUTO) 53.7 %; PLT - PLATELET COUNT 331 10^3/uL (130-450); RED CELL DISTRIBUTION WIDTH 13.7 % (12.0-15.0); WHITE BLOOD COUNT 5.8 x10^3/uL (4.8-10.8)
[2019-09-03 12:04] LABS: ALBUMIN 4.6 g/dL (3.2-5.5); ALBUMIN/GLOBULIN RATIO 1.5 (1.0-2.2); BILIRUBIN,TOTAL 0.9 mg/dL (0.2-1.0); CALCIUM 9.1 mg/dL (8.5-10.3); CREATININE 0.8 mg/dL (0.4-1.0); TOTAL PROTEIN 7.7 g/dL (6.7-8.2)
--- NOTE | 2019-09-03 12:48 | XRAY Report ---
Reason: SHORTNESS OF BREATH, COUGH Procedure Date: 09/03/2019 Accession Number: [id number] / [id number] Procedure: XR - Chest 2 View X-Ray CPT Code: 44976 Final Report FULL RESULT: EXAM: CHEST RADIOGRAPHY EXAM DATE: 09/03/2019 11:58 AM. CLINICAL HISTORY: SHORTNESS OF BREATH, COUGH. COMPARISON: CHEST 2 VIEW 08/30/2019 5:55 PM. TECHNIQUE: 2 views. FINDINGS: Lungs/Pleura: No focal opacities evident. No pleural effusion. No pneumothorax. Normal volumes. Mediastinum: Heart and mediastinal contours are unremarkable. Other: None. IMPRESSION: No acute intrathoracic plain film abnormality. RADIA The call report notification system was initiated by Dr. Campbell Al at 12:47 PM on 09/03/2019.
== END 2019-09-03 11:32 | disposition home or self-care (01) ==
LOC: LAB 11:31
PROVIDERS: ATTEND Nurse Practitioner
DX: J45.909 Unspecified asthma, uncomplicated (principal); R06.02 Shortness of breath; R05 Cough
CPT/HCPCS: 36415; 71046; 80053; 85025

== ENCOUNTER 2019-12-05 11:00 | Outpatient (CLI) | payer MEDICAID ==
[2019-12-05 18:50] LABS: BILIRUBIN,URINE NEGATIVE (NEGATIVE); GLUCOSE, URINE (UA) NEGATIVE (NEGATIVE); KETONES,URINE (UA) NEGATIVE (NEGATIVE); LEUKOCYTE ESTERASE, URINE SMALL (NEGATIVE); NITRITE,URINE NEGATIVE (NEGATIVE); OCCULT BLOOD,URINE TRACE-INTA (NEGATIVE); PH,URINE 5.5 PH (5.0-7.5); PROTEIN,URINE NEGATIVE (NEGATIVE); UROBILINOGEN,URINE 0.2 (NORMAL) E.U./dL (NORMAL)
[2019-12-05 19:04] LABS: CLARITY,URINE CLOUDY (CLEAR)
[2019-12-05 19:11] LABS: AMORPHOUS SEDIMENT,UR Marked /LPF; BACTERIA,URINE Many /HPF (None Seen); RBC,URINE 0-5 /HPF (0-5); SQUAMOUS EPITHELIAL CELL,UR FEW Squamous (<= Few)
== END 2019-12-05 23:59 | disposition home or self-care (01) ==
LOC: LAB.R 11:00
PROVIDERS: ATTEND Nurse Practitioner
DX: R82.81 Pyuria (principal)
CPT/HCPCS: 81001; 81003; 87077; 87086; 87181

== ENCOUNTER 2019-12-05 12:17 | Outpatient (CLI) | payer MEDICAID ==
[2019-12-05 18:56] LABS: ALBUMIN/GLOBULIN RATIO 1.5 (1.0-2.2); BILIRUBIN,TOTAL 1.1 mg/dL (0.2-1.0); CALCIUM 8.7 mg/dL (8.5-10.3); CREATININE 0.8 mg/dL (0.4-1.0); TOTAL PROTEIN 6.7 g/dL (6.7-8.2)
[2019-12-05 19:01] LABS: BASOPHILS % (AUTO) 0.5 %; EOSINOPHILS # (AUTO) 0.1 10^3/uL (0.0-0.7); EOSINOPHILS % (AUTO) 1.2 %; HGB - HEMOGLOBIN 13.6 g/dL (12.0-16.0); LYMPHOCYTES # (AUTO) 2.1 10^3/uL (1.5-3.5); MEAN CORPUSCULAR HEMOGLOBIN 31.4 pg (27.0-31.0); MEAN CORPUSCULAR HGB CONC 31.6 g/dL (32.0-36.0); MEAN CORPUSCULAR VOLUME 99.3 fL (81.0-99.0); MEAN PLATELET VOLUME 9.5 fL (7.9-10.8); MONOCYTES # (AUTO) 0.4 10^3/uL (0.0-1.0); MONOCYTES % (AUTO) 6.3 %; NEUTROPHILS # (AUTO) 3.2 10^3/uL (1.5-6.6); NEUTROPHILS % (AUTO) 55.3 %; PLT - PLATELET COUNT 349 10^3/uL (130-450); RED BLOOD COUNT 4.33 10^6/uL (4.20-5.40); RED CELL DISTRIBUTION WIDTH 13.8 % (12.0-15.0); WHITE BLOOD COUNT 5.7 x10^3/uL (4.8-10.8)
[2019-12-05 19:11] LABS: THYROID STIMULATING HORMONE 3.81 uIU/mL (0.34-5.60)
[2019-12-05 19:13] LABS: FREE T3 2.89 pg/mL (2.5-3.9)
== END 2019-12-05 23:59 | disposition home or self-care (01) ==
LOC: LAB.WCP 12:17
PROVIDERS: ATTEND Nurse Practitioner
DX: R10.9 Unspecified abdominal pain (principal); E03.9 Hypothyroidism, unspecified; R53.82 Chronic fatigue, unspecified; I10 Essential (primary) hypertension; Q60.0 Renal agenesis, unilateral; R82.81 Pyuria
CPT/HCPCS: 36415; 80053; 81001; 81003; 84443; 84481; 85025; 87086

== ENCOUNTER 2019-12-24 10:40 | Emergency (ER) | payer MEDICAID ==
[2019-12-24] MEDS ORDERED: FUROSEMIDE 20 MG/2 ML VIAL IVP STA (11:06)
--- NOTE | 2019-12-24 11:07 | ED Physician Documentation ---
PD HPI DYSPNEA - Stated complaint Stated Complaint: BODY SWELLING - Chief complaint Chief Complaint: General - History obtained from History obtained from: Patient - History of Present Illness Timing - onset: Yesterday Timing - onset during: Rest Timing - details: Gradual onset (noted facial swelling and some in hands yesterday, worse today, with feeling of edema/swelling over all body. Minimal dyspnea. No throat swelling. Had recent UTI and just finished abx for it (not sure name but was capsule black and yellow, so presume macrobid). She was conc erned about renal/heart.), Still present Inciting event(s): No: URI Worsened by: Exertion. No: Laying flat Associated symptoms: Bilateral edema, Other (some itchiness). No: Fever, Cough, Wheezing Similar symptoms before: Has not had sx before Recently seen: Clinic (for UTI symptoms last week) Review of Systems Constitutional: denies: Fever, Chills, Myalgias Nose: denies: Rhinorrhea / runny nose, Congestion Throat: denies: Sore throat Cardiac: denies: Chest pain / pressure Respiratory: denies: Cough, Wheezing GI: denies: Nausea, Vomiting, Diarrhea : reports: Dysuria (improved since on abx), Frequency PD PAST MEDICAL HISTORY - Past Medical History Cardiovascular: Hypertension Respiratory: Shortness of breath Neuro: TIA Endocrine/Autoimmune: None, HyPOthyroidism GI: Hepatitis : Other HEENT: None Psych: Depression, Anxiety Musculoskeletal: Osteoarthritis Derm: None - Past Surgical History Past Surgical History: Yes General: EGD, Other Ortho: Other - Present Medications Home Medications: Ambulatory Orders Medication Instructions Recorded Confirmed Citalopram Hydrobromide 10 mg PO DAILY 03/30/19 03/30/19 [Citalopram HBr] Losartan Potassium 25 mg PO DAILY 03/30/19 03/31/19 traZODone [Desyrel] 50 mg PO QPM 03/30/19 03/31/19 Omeprazole [PriLOSEC] 20 mg PO QDAC 03/31/19 03/31/19 Cephalexin [Keflex] 250 mg PO QID #28 capsule 04/01/19 Levothyroxine [Synthroid] 75 mcg PO QDAC #10 tablet 04/01/19 Thiamine [Vitamin B-1] 100 mg PO DAILY #10 tablet 04/01/19 Albuterol Sulfate [Proair Hfa 1 - 2 puffs INH Q4H PRN #1 inhaler 08/30/19 Inhaler] - Allergies Allergies/Adverse Reactions: Allergies Allergy/AdvReac Type Severity Reaction Status Date / Time No Known Drug Allergies Allergy Verified 08/30/19 17:41 - Social History Does the pt smoke?: Yes Smoking Status: Current every day smoker Does the pt drink ETOH?: Yes Does the pt have substance abuse?: No PD ED PE NORMAL - Vitals Vital signs reviewed: Yes - General General: Alert and oriented X 3, No acute distress, Well developed/nourished - HEENT HEENT: Moist mucous membranes, Pharynx benign (no edema), Other (puffiness of face generally, but not eyelids as much. ) - Neck Neck: Supple, no meningeal sign, No adenopathy - Cardiac Cardiac: RRR, No murmur - Respiratory Respiratory: Clear bilaterally - Abdomen Abdomen: Soft, Non tender - Back Back: No CVA TTP - Derm Derm: Normal color, No rash - Extremities Extremities: Normal ROM s pain, No calf tenderness / cord, Other (1+ edema generally (feet/legs/hands)) - Neuro Neuro: Alert and oriented X 3, No motor deficit, Normal speech Results - Vitals Vitals: Vital Signs - 24 hr 12/24/19 12/24/19 12/24/19 10:50 11:25 11:54 Temperature 37.0 C Heart Rate 80 74 72 Respiratory 23 21 22 Rate Blood Pressure 122/74 96/70 108/65 O2 Saturation 94 96 96 12/24/19 12/24/19 12/24/19 12:11 12:30 13:24 Temperature 36.6 C Heart Rate 66 67 87 Respiratory 17 21 18 Rate Blood Pressure 97/67 105/74 103/78 O2 Saturation 96 94 97 Oxygen O2 Source Room air - Labs Labs: Microbiology 12/24/19 11:51 Urine Culture - Preliminary Urine,Clean Catch Laboratory Tests 12/24/19 12/24/19 12/24/19 10:53 10:53 11:51 WBC 5.9 RBC 3.73 L Hgb 12.3 Hct 37.0 MCV 99.2 H MCH 33.0 H MCHC 33.2 RDW 13.8 Plt Count 262 MPV 9.2 Neut # (Auto) 3.4 Lymph # (Auto) 1.9 [place] # (Auto) 0.4 Eos # (Auto) 0.1 Baso # (Auto) 0.0 Absolute Nucleated RBC 0.00 Nucleated RBC % 0.0 Sodium 138 Potassium 3.7 Chloride 105 Carbon Dioxide 23 Anion Gap 10.0 BUN 14 Creatinine 0.9 Estimated GFR (MDRD) 64 L Glucose 96 Calcium 8.1 L Magnesium 1.9 Total Bilirubin 0.7 AST 23 ALT 20 Alkaline Phosphatase 102 Total Protein 6.5 L Albumin 4.0 Globulin 2.5 Albumin/Globulin Ratio 1.6 Lipase 43 Urine Color YELLOW Urine Clarity CLEAR Urine pH 6.5 Ur Specific [place] 1.010 Urine Protein NEGATIVE Urine Glucose (UA) NEGATIVE Urine Ketones NEGATIVE Urine Occult Blood NEGATIVE Urine Nitrite NEGATIVE Urine Bilirubin NEGATIVE Urine Urobilinogen 0.2 (NORMAL) Ur Leukocyte Esterase TRACE H Urine RBC None Seen Urine WBC 6-10 H Ur Squamous Epith Cells FEW Squamous Urine Bacteria None Seen Ur Microscopic Review INDICATED Urine Culture Comments INDICATED PD MEDICAL DECISION MAKING - ED course Complexity details: considered differential (CXR clear. vitals are normal and renal function/liver function normal. Presume allergic reaction and not fluid overload. ), d/w patient Departure - Departure Disposition: 01 Home, Self Care Clinical Impression: Acute edema Allergic reaction caused by a drug Qualifiers: Encounter type: initial encounter Qualified Code(s): T78.40XA - Allergy, unspecified, initial encounter Condition: Stable Record reviewed to determine appropriate education?: Yes Instructions: ED Edema Legs Bilateral Comments: Your electrolytes, kidney function, liver function are normal. Your chest x-ray is clear as well. No signs of kidney failure nor fluid overload. I would presume your swelling and some itching is related to allergic reaction to the antibiotics. Your urine does look improved so stay off the antibiotics and continue your other usual medicines and see if you improve over the next couple of days. Discharge Date/Time: 12/24/19 13:31
[2019-12-24 11:25] LABS: BASOPHILS % (AUTO) 0.3 %; EOSINOPHILS # (AUTO) 0.1 10^3/uL (0.0-0.7); EOSINOPHILS % (AUTO) 1.5 %; HGB - HEMOGLOBIN 12.3 g/dL (12.0-16.0); LYMPHOCYTES # (AUTO) 1.9 10^3/uL (1.5-3.5); MEAN CORPUSCULAR HGB CONC 33.2 g/dL (32.0-36.0); MEAN CORPUSCULAR VOLUME 99.2 fL (81.0-99.0); MEAN PLATELET VOLUME 9.2 fL (7.9-10.8); MONOCYTES # (AUTO) 0.4 10^3/uL (0.0-1.0); MONOCYTES % (AUTO) 7.5 %; NEUTROPHILS # (AUTO) 3.4 10^3/uL (1.5-6.6); NEUTROPHILS % (AUTO) 57.3 %; PLT - PLATELET COUNT 262 10^3/uL (130-450); RED BLOOD COUNT 3.73 10^6/uL (4.20-5.40); RED CELL DISTRIBUTION WIDTH 13.8 % (12.0-15.0); WHITE BLOOD COUNT 5.9 x10^3/uL (4.8-10.8)
[2019-12-24 11:36] LABS: ALBUMIN/GLOBULIN RATIO 1.6 (1.0-2.2); BILIRUBIN,TOTAL 0.7 mg/dL (0.2-1.0); CALCIUM 8.1 mg/dL (8.5-10.3); CREATININE 0.9 mg/dL (0.4-1.0); MAGNESIUM 1.9 mg/dL (1.7-2.8); TOTAL PROTEIN 6.5 g/dL (6.7-8.2)
--- NOTE | 2019-12-24 11:37 | XRAY Report ---
PROCEDURE: Chest 1 View X-Ray INDICATIONS: dyspnea/edema TECHNIQUE: One view of the chest was acquired. COMPARISON: Chest xray 09/03/19 FINDINGS: Surgical changes and devices: None. Lungs and pleura: No pleural effusions or pneumothorax. Lungs are clear. Mediastinum: Mediastinal contours appear normal. Heart size is at the upper limits of normal. Bones and chest wall: No suspicious bony lesions. Overlying soft tissues appear unremarkable. IMPRESSION: No acute pulmonary process. Reviewed by: Morena Jordan MD on 12/24/2019 11:36 AM PDT Approved by: Morena Jordan MD on 12/24/2019 11:36 AM PDT Station ID: [id number]
[2019-12-24 12:03] LABS: BILIRUBIN,URINE NEGATIVE (NEGATIVE); GLUCOSE, URINE (UA) NEGATIVE (NEGATIVE); KETONES,URINE (UA) NEGATIVE (NEGATIVE); LEUKOCYTE ESTERASE, URINE TRACE (NEGATIVE); NITRITE,URINE NEGATIVE (NEGATIVE); OCCULT BLOOD,URINE NEGATIVE (NEGATIVE); PH,URINE 6.5 PH (5.0-7.5); PROTEIN,URINE NEGATIVE (NEGATIVE); UROBILINOGEN,URINE 0.2 (NORMAL) E.U./dL (NORMAL)
[2019-12-24 12:06] LABS: CLARITY,URINE CLEAR (CLEAR)
[2019-12-24 12:23] LABS: RBC,URINE None Seen /HPF (0-5); SQUAMOUS EPITHELIAL CELL,UR FEW Squamous (<= Few)
[2019-12-24 12:24] LABS: BACTERIA,URINE None Seen /HPF (None Seen)
[2019-12-24 13:25] VITALS: BP 103/78
== END 2019-12-24 13:31 | disposition home or self-care (01) ==
LOC: ED 10:40
DX: R60.0 Localized edema (principal); T36.95XA Adverse effect of unspecified systemic antibiotic, initial encounter; I10 Essential (primary) hypertension; F17.200 Nicotine dependence, unspecified, uncomplicated
CPT/HCPCS: 71045; 80053; 81001; 81003; 83690; 83735; 85025; 87077; 87086; 87181; 93005; 96374; 99284

== ENCOUNTER 2020-01-08 14:03 | Outpatient (CLI) | payer MEDICAID ==
[2020-01-08 19:48] LABS: GLUCOSE, URINE (UA) NEGATIVE (NEGATIVE); KETONES,URINE (UA) NEGATIVE (NEGATIVE); LEUKOCYTE ESTERASE, URINE TRACE (NEGATIVE); NITRITE,URINE NEGATIVE (NEGATIVE); OCCULT BLOOD,URINE TRACE-INTA (NEGATIVE); PROTEIN,URINE TRACE mg/dL (NEGATIVE); UROBILINOGEN,URINE 0.2 (NORMAL) E.U./dL (NORMAL)
[2020-01-08 19:50] LABS: BILIRUBIN,URINE NEGATIVE (NEGATIVE); CLARITY,URINE CLOUDY (CLEAR); ICTOTEST,URINE NEGATIVE
[2020-01-08 20:00] LABS: AMORPHOUS SEDIMENT,UR Marked /LPF; BACTERIA,URINE None Seen /HPF (None Seen); RBC,URINE 0-5 /HPF (0-5); SQUAMOUS EPITHELIAL CELL,UR MOD Squamous (<= Few)
== END 2020-01-08 23:59 | disposition home or self-care (01) ==
LOC: LAB.R 14:03
PROVIDERS: ATTEND Nurse Practitioner
DX: R35.0 Frequency of micturition (principal)
CPT/HCPCS: 81001; 81003; 87086

== ENCOUNTER 2020-03-26 12:00 | Outpatient (CLI) | payer MEDICAID ==
[2020-03-26 18:30] LABS: BASOPHILS % (AUTO) 0.4 %; EOSINOPHILS # (AUTO) 0.1 10^3/uL (0.0-0.7); EOSINOPHILS % (AUTO) 1.7 %; HGB - HEMOGLOBIN 14.2 g/dL (12.0-16.0); LYMPHOCYTES # (AUTO) 2.1 10^3/uL (1.5-3.5); LYMPHOCYTES % (AUTO) 39.1 %; MEAN CORPUSCULAR HEMOGLOBIN 31.6 pg (27.0-31.0); MEAN CORPUSCULAR HGB CONC 31.9 g/dL (32.0-36.0); MEAN CORPUSCULAR VOLUME 98.9 fL (81.0-99.0); MEAN PLATELET VOLUME 9.9 fL (7.9-10.8); MONOCYTES # (AUTO) 0.3 10^3/uL (0.0-1.0); MONOCYTES % (AUTO) 5.8 %; NEUTROPHILS # (AUTO) 2.8 10^3/uL (1.5-6.6); NEUTROPHILS % (AUTO) 52.2 %; PLT - PLATELET COUNT 322 10^3/uL (130-450); RED CELL DISTRIBUTION WIDTH 13.3 % (12.0-15.0); WHITE BLOOD COUNT 5.3 x10^3/uL (4.8-10.8)
[2020-03-26 18:46] LABS: CALCIUM 8.9 mg/dL (8.5-10.3); CREATININE 0.9 mg/dL (0.4-1.0)
== END 2020-03-26 23:59 | disposition home or self-care (01) ==
LOC: LAB.WCP 12:00
PROVIDERS: ATTEND Family Medicine
DX: K52.9 Noninfective gastroenteritis and colitis, unspecified (principal); R10.11 Right upper quadrant pain; Q60.0 Renal agenesis, unilateral; E03.9 Hypothyroidism, unspecified; I10 Essential (primary) hypertension
CPT/HCPCS: 36415; 80048; 85025

== ENCOUNTER 2020-03-27 11:43 | Outpatient (CLI) | payer MEDICAID | END 2020-03-27 23:59 | disposition home or self-care (01) | LOC: LAB.R 11:43 | PROVIDERS: ATTEND Family Medicine | DX: K21.9 Gastro-esophageal reflux disease without esophagitis (principal); K52.9 Noninfective gastroenteritis and colitis, unspecified | CPT/HCPCS: 87493 ==

== ENCOUNTER 2020-05-26 08:00 | Outpatient (CLI) | payer MEDICAID ==
[2020-05-26 12:00] LABS: BASOPHILS % (AUTO) 0.3 %; EOSINOPHILS # (AUTO) 0.1 10^3/uL (0.0-0.7); EOSINOPHILS % (AUTO) 0.8 %; HGB - HEMOGLOBIN 14.3 g/dL (12.0-16.0); LYMPHOCYTES # (AUTO) 1.8 10^3/uL (1.5-3.5); LYMPHOCYTES % (AUTO) 28.6 %; MEAN CORPUSCULAR HEMOGLOBIN 30.8 pg (27.0-31.0); MEAN CORPUSCULAR HGB CONC 31.8 g/dL (32.0-36.0); MEAN PLATELET VOLUME 9.5 fL (7.9-10.8); MONOCYTES # (AUTO) 0.4 10^3/uL (0.0-1.0); NEUTROPHILS % (AUTO) 63.8 %; PLT - PLATELET COUNT 327 10^3/uL (130-450); RED BLOOD COUNT 4.64 10^6/uL (4.20-5.40); RED CELL DISTRIBUTION WIDTH 13.3 % (12.0-15.0); WHITE BLOOD COUNT 6.3 x10^3/uL (4.8-10.8)
[2020-05-26 12:29] LABS: ALBUMIN 4.5 g/dL (3.2-5.5); ALBUMIN/GLOBULIN RATIO 1.4 (1.0-2.2); BILIRUBIN,TOTAL 1.2 mg/dL (0.2-1.0); CALCIUM 9.3 mg/dL (8.5-10.3); CREATININE 0.9 mg/dL (0.4-1.0); TOTAL PROTEIN 7.7 g/dL (6.7-8.2)
== END 2020-05-26 08:01 | disposition home or self-care (01) ==
LOC: LAB.WCP 08:00
PROVIDERS: ATTEND Nurse Practitioner
DX: R19.7 Diarrhea, unspecified (principal); E03.9 Hypothyroidism, unspecified; I10 Essential (primary) hypertension; R53.82 Chronic fatigue, unspecified
CPT/HCPCS: 36415; 80053; 82306; 84443; 85025

== ENCOUNTER 2020-05-28 08:00 | Outpatient (CLI) | payer MEDICAID | END 2020-05-28 23:59 | disposition home or self-care (01) | LOC: LAB.R 08:00 | PROVIDERS: ATTEND Nurse Practitioner | DX: K52.9 Noninfective gastroenteritis and colitis, unspecified (principal) | CPT/HCPCS: 87493 ==

== ENCOUNTER → 2020-07-23 | Outpatient (CLI) | payer MEDICAID | LOC: LAB 08:00 | PROVIDERS: ATTEND Nurse Practitioner | DX: E55.9 Vitamin D deficiency, unspecified (principal) | CPT/HCPCS: 36415; 82306 ==

== ENCOUNTER 2020-08-22 12:08 | Emergency (ER) | payer MEDICAID ==
[2020-08-22 12:40] LABS: BASOPHILS % (AUTO) 0.3 %; EOSINOPHILS # (AUTO) 0.1 10^3/uL (0.0-0.7); EOSINOPHILS % (AUTO) 1.3 %; HCT - HEMATOCRIT 44.8 % (37.0-47.0); HGB - HEMOGLOBIN 15.1 g/dL (12.0-16.0); LYMPHOCYTES # (AUTO) 1.9 10^3/uL (1.5-3.5); MEAN CORPUSCULAR HEMOGLOBIN 31.8 pg (27.0-31.0); MEAN CORPUSCULAR HGB CONC 33.7 g/dL (32.0-36.0); MEAN CORPUSCULAR VOLUME 94.3 fL (81.0-99.0); MEAN PLATELET VOLUME 9.1 fL (7.9-10.8); MONOCYTES # (AUTO) 0.4 10^3/uL (0.0-1.0); MONOCYTES % (AUTO) 7.1 %; NEUTROPHILS # (AUTO) 3.6 10^3/uL (1.5-6.6); PLT - PLATELET COUNT 298 10^3/uL (130-450); RED BLOOD COUNT 4.75 10^6/uL (4.20-5.40); RED CELL DISTRIBUTION WIDTH 13.2 % (12.0-15.0); WHITE BLOOD COUNT 6.1 x10^3/uL (4.8-10.8)
[2020-08-22 12:55] LABS: ALBUMIN 4.4 g/dL (3.2-5.5); ALBUMIN/GLOBULIN RATIO 1.3 (1.0-2.2); BILIRUBIN,TOTAL 1.4 mg/dL (0.2-1.0); CALCIUM 9.6 mg/dL (8.5-10.3); POTASSIUM 3.7 mmol/L (3.5-5.0); TOTAL PROTEIN 7.8 g/dL (6.7-8.2)
[2020-08-22] MEDS ORDERED: KETOROLAC 15 MG/ML VIAL IVP STA (12:58)
[2020-08-22] MEDS ORDERED: SODIUM CHLORIDE 0.9% 1,000 ML IV STA (12:58)
[2020-08-22] MEDS ORDERED: LOPERAMIDE 2 MG CAPSULE PO STA (12:58)
--- NOTE | 2020-08-22 12:59 | ED Physician Documentation ---
PD HPI ABD PAIN - Stated complaint Stated Complaint: ABD PX/DIARRHEA - Chief complaint Chief Complaint: Abd Pain - History obtained from History obtained from: Patient - Additional information Additional information: 60-year-old woman history of IBS, nephrectomy, vitiligo presents with 3 days of diffuse and generalized abdominal pain that is sharp and cramping associated with profuse diarrhea. There is no hematochezia. No fevers. No recent antibiotics. No recent travel. No sick contacts. She has not tried anything for the diarrhea. Review of Systems Ten Systems: 10 systems reviewed and negative Constitutional: denies: Fever, Chills Cardiac: reports: Chest pain / pressure (chronic, not new). denies: Palpitations Respiratory: denies: Dyspnea, Cough GI: reports: Abdominal Pain. denies: Nausea, Vomiting, Diarrhea, Hematemesis, Bloody / black stool PD PAST MEDICAL HISTORY - Past Medical History Cardiovascular: Hypertension Respiratory: Shortness of breath Neuro: TIA Endocrine/Autoimmune: None, HyPOthyroidism GI: Hepatitis : Other HEENT: None Psych: Depression, Anxiety Musculoskeletal: Osteoarthritis Derm: None - Past Surgical History Past Surgical History: Yes General: EGD, Other Ortho: Other - Present Medications Home Medications: Ambulatory Orders Medication Instructions Recorded Confirmed Citalopram Hydrobromide 10 mg PO DAILY 03/30/19 03/30/19 [Citalopram HBr] Losartan Potassium 25 mg PO DAILY 03/30/19 03/31/19 traZODone [Desyrel] 50 mg PO QPM 03/30/19 03/31/19 Omeprazole [PriLOSEC] 20 mg PO QDAC 03/31/19 03/31/19 Levothyroxine [Synthroid] 75 mcg PO QDAC #10 tablet 04/01/19 Thiamine [Vitamin B-1] 100 mg PO DAILY #10 tablet 04/01/19 cephALEXin [Keflex] 250 mg PO QID #28 capsule 04/01/19 Albuterol Sulfate [Proair Hfa 1 - 2 puffs INH Q4H PRN #1 inhaler 08/30/19 Inhaler] Dicyclomine [Bentyl] 1 - 2 tab PO QID PRN #20 cap 08/22/20 Loperamide [Imodium] 2 mg PO QID PRN #10 cap 08/22/20 - Allergies Allergies/Adverse Reactions: Allergies Allergy/AdvReac Type Severity Reaction Status Date / Time lisinopril Allergy Unknown Verified 08/22/20 12:20 - Social History Does the pt smoke?: Yes Smoking Status: Current every day smoker Does the pt drink ETOH?: Yes Does the pt have substance abuse?: No PD ED PE NORMAL - Vitals Vital signs reviewed: Yes - General General: Alert and oriented X 3, No acute distress - Cardiac Cardiac: RRR, No murmur - Respiratory Respiratory: No respiratory distress, Clear bilaterally - Abdomen Abdomen: Normal bowel sounds, Soft, Non tender - Derm Derm: Normal color, Warm and dry - Extremities Extremities: No edema, No calf tenderness / cord - Neuro Neuro: Alert and oriented X 3, Normal speech Results - Vitals Vitals: Vital Signs - 24 hr 08/22/20 12:20 Temperature 37.4 C Heart Rate 100 Respiratory 19 Rate Blood Pressure 99/67 O2 Saturation 100 Oxygen O2 Source Room air - Labs Labs: Laboratory Tests 08/22/20 08/22/20 12:36 12:36 WBC 6.1 RBC 4.75 Hgb 15.1 Hct 44.8 MCV 94.3 MCH 31.8 H MCHC 33.7 RDW 13.2 Plt Count 298 MPV 9.1 Neut # (Auto) 3.6 Lymph # (Auto) 1.9 [place] # (Auto) 0.4 Eos # (Auto) 0.1 Baso # (Auto) 0.0 Absolute Nucleated RBC 0.00 Nucleated RBC % 0.0 Sodium 142 Potassium 3.7 Chloride 108 Carbon Dioxide 23 Anion Gap 11.0 BUN 17 Creatinine 1.0 Estimated GFR (MDRD) 57 L Glucose 93 Calcium 9.6 Total Bilirubin 1.4 H AST 23 ALT 23 Alkaline Phosphatase 84 Total Protein 7.8 Albumin 4.4 Globulin 3.4 Albumin/Globulin Ratio 1.3 Lipase 22 PD MEDICAL DECISION MAKING - ED course ED course: 60-year-old woman with history of IBS presents with abdominal cramps and diarrhea. Benign exam and unremarkable vitals as well as unremarkable labs. She was unable to produce a stool sample here but has collection kit and orders at home. Departure - Departure Disposition: 01 Home, Self Care Clinical Impression: Abdominal pain Qualifiers: Abdominal location: generalized Qualified Code(s): R10.84 - Generalized abdominal pain Diarrhea Qualifiers: Diarrhea type: unspecified type Qualified Code(s): R19.7 - Diarrhea, unspecified Condition: Good Record reviewed to determine appropriate education?: Yes Instructions: ED Diarrhea Viral Prescriptions: Dicyclomine [Bentyl] 1 - 2 tab PO QID PRN #20 cap PRN Reason: Abdominal Pain Loperamide [Imodium] 2 mg PO QID PRN #10 cap PRN Reason: Diarrhea Comments: Return the stool sample to the hospital lab when you are able. Return for new or worsening symptoms. You can take the medications as needed for the symptoms as well.
[2020-08-22 14:15] VITALS: BP 103/69
[2020-08-22 14:26] LABS: BILIRUBIN,URINE NEGATIVE (NEGATIVE); GLUCOSE, URINE (UA) NEGATIVE (NEGATIVE); KETONES,URINE (UA) NEGATIVE (NEGATIVE); LEUKOCYTE ESTERASE, URINE SMALL (NEGATIVE); NITRITE,URINE POSITIVE (NEGATIVE); OCCULT BLOOD,URINE NEGATIVE (NEGATIVE); PROTEIN,URINE NEGATIVE (NEGATIVE); UROBILINOGEN,URINE 0.2 (NORMAL) E.U./dL (NORMAL)
[2020-08-22 14:27] LABS: CLARITY,URINE CLEAR (CLEAR)
[2020-08-22 14:44] LABS: BACTERIA,URINE Many /HPF (None Seen); EPITHELIAL CELLS,UR RARE Renal Tubular /HPF (<= Few); RBC,URINE 0-5 /HPF (0-5); SQUAMOUS EPITHELIAL CELL,UR FEW Squamous (<= Few); WBC,URINE >25 /HPF (0-5)
== END 2020-08-22 14:25 | disposition home or self-care (01) ==
LOC: ED 12:08
DX: R10.84 Generalized abdominal pain (principal); R19.7 Diarrhea, unspecified; Z87.19 Personal history of other diseases of the digestive system; I10 Essential (primary) hypertension; F17.200 Nicotine dependence, unspecified, uncomplicated
CPT/HCPCS: 36415; 80053; 81001; 83690; 85025; 87077; 87086; 87181; 96374; 99283; 99284; A9270; 81003

== ENCOUNTER 2020-08-26 07:00 | Outpatient (CLI) | payer MEDICAID | END 2020-08-26 23:59 | disposition home or self-care (01) | LOC: LAB 07:00 | PROVIDERS: ATTEND Physician Assistant | DX: R10.33 Periumbilical pain (principal); R19.7 Diarrhea, unspecified | CPT/HCPCS: 0097U; 87046; 81599 ==

== ENCOUNTER 2020-09-03 11:44 | Outpatient (CLI) | payer MEDICAID ==
--- NOTE | 2020-09-03 16:30 | CT Report ---
PROCEDURE: Abdomen/Pelvis WO INDICATIONS: PERIUMBILICAL ABD PAIN, C. DIFF INFECTION HISTORY TECHNIQUE: Noncontrast 5 mm thick sections acquired from the diaphragms to the symphysis. 5 mm coronal and sagi ttal reformats were then performed. For radiation dose reduction, the following was used: automated exposure control, adjustment of mA and/or kV according to patient size. COMPARISON: CT abdomen and pelvis without contrast, 10/31/2018. FINDINGS: Image quality: Excellent. ABDOMEN: Lung bases: Lung bases are clear. Heart size is normal. Small hiatal hernia. Solid organs: Liver and spleen are normal in size. Gallbladder is contracted and contains calcified gallstones. Pancreas is normal in contours. No adrenal nodules. There is a 2 mm stone in the supe rior pole of the right kidney. Hydronephrosis. Left kidney surgically removed. Peritoneum and bowel: Unenhanced bowel loops demonstrate normal wall thickness and caliber. Normal appendix. 2 colonic diverticula are present in sigmoid colon. No findings to suggest acute diverticul itis. No free fluid or air. Nodes and vessels: No retroperitoneal or mesenteric adenopathy by size criteria. Aorta and inferior vena cava are normal in caliber. Miscellaneous: No ventral hernias. PELVIS: Genitourinary: Bladder wall thickness is normal. Uterus is normal. No adnexal mass. No pathological free fluid. Miscellaneous: No inguinal hernias or adenopathy. Bones: No suspicious bony lesions. No vertebral body compression fractures. IMPRESSION: 1. No acute intra-abdominal or pelvic process. 2. Cholelithiasis. Contracted gallbladder. No CT findings to suggest acute cholecystitis. 3. Left nephrectomy. There is a 2 mm nonobstructive stone superior pole of the right kidney. 4. Mild diverticulosis. No diverticulitis. 5. Small hiatal hernia. Reviewed by: Queenie Galvan MD on 09/03/2020 4:28 PM PDT Approved by: Queenie Galvan MD on 09/03/2020 4:28 PM PDT Station ID: [id number]
== END 2020-09-03 11:45 | disposition home or self-care (01) ==
LOC: DI 11:44
PROVIDERS: ATTEND Physician Assistant
DX: K80.20 Calculus of gallbladder without cholecystitis without obstruction (principal); N13.2 Hydronephrosis with renal and ureteral calculous obstruction; K57.30 Diverticulosis of large intestine without perforation or abscess without bleeding; K44.9 Diaphragmatic hernia without obstruction or gangrene; Z90.5 Acquired absence of kidney

== ENCOUNTER 2020-09-13 01:55 | Outpatient (CLI) | payer MEDICAID | END 2020-09-13 01:56 | disposition critical access hospital (66) | LOC: EMS 01:55 | DX: R10.10 Upper abdominal pain, unspecified (principal); R19.7 Diarrhea, unspecified; R68.83 Chills (without fever); R11.10 Vomiting, unspecified | CPT/HCPCS: A0425; A0429 ==

== ENCOUNTER 2020-09-13 02:05 | Emergency (ER) | payer MEDICAID ==
[2020-09-13 02:23] LABS: BASOPHILS % (AUTO) 0.2 %; EOSINOPHILS # (AUTO) 0.1 10^3/uL (0.0-0.7); EOSINOPHILS % (AUTO) 1.1 %; HCT - HEMATOCRIT 44.2 % (37.0-47.0); HGB - HEMOGLOBIN 14.3 g/dL (12.0-16.0); LYMPHOCYTES # (AUTO) 2.1 10^3/uL (1.5-3.5); LYMPHOCYTES % (AUTO) 22.4 %; MEAN CORPUSCULAR HEMOGLOBIN 30.6 pg (27.0-31.0); MEAN CORPUSCULAR HGB CONC 32.4 g/dL (32.0-36.0); MEAN CORPUSCULAR VOLUME 94.6 fL (81.0-99.0); MONOCYTES # (AUTO) 0.5 10^3/uL (0.0-1.0); MONOCYTES % (AUTO) 5.2 %; NEUTROPHILS # (AUTO) 6.5 10^3/uL (1.5-6.6); NEUTROPHILS % (AUTO) 70.6 %; PLT - PLATELET COUNT 347 10^3/uL (130-450); RED BLOOD COUNT 4.67 10^6/uL (4.20-5.40); RED CELL DISTRIBUTION WIDTH 13.2 % (12.0-15.0); WHITE BLOOD COUNT 9.2 x10^3/uL (4.8-10.8)
[2020-09-13 02:49] LABS: ALBUMIN 4.5 g/dL (3.2-5.5); ALBUMIN/GLOBULIN RATIO 1.5 (1.0-2.2); CALCIUM 8.9 mg/dL (8.5-10.3); CREATININE 0.9 mg/dL (0.4-1.0); POTASSIUM 3.7 mmol/L (3.5-5.0); TOTAL PROTEIN 7.6 g/dL (6.7-8.2)
--- NOTE | 2020-09-13 02:52 | ED Physician Documentation ---
PD HPI ABD PAIN - Stated complaint Stated Complaint: ABD PAIN, DIARRHEA, CHILLS - Chief complaint Chief Complaint: Abd Pain - History obtained from History obtained from: Patient - History of Present Illness Timing - onset: Today Timing - duration: Hours Timing - details: Gradual onset, Still present Quality: Cramping, Sharp, Pain Location: RUQ Improved by: Laying still Worsened by: Breathing, Position, Palpation Associated symptoms: Nausea, Vomiting, Diarrhea Similar symptoms before: Has not had sx before Recently seen: Emergency Dept - Additional information Additional information: 60-year-old female who is a poor and tangential historian is complaining of some abdominal pain. She has a history of irritable bowel syndrome and recently was seen in the emergency department with diarrhea and abdominal cramping and she was given a prescription for loperamide she took this once it constipated her and she stopped taking it. This evening she had dinner and several hours later began to develop right upper quadrant pain. She denies having these episodes previously. 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 Review of Systems Constitutional: reports: Fatigue. denies: Fever Eyes: denies: Decreased vision Ears: denies: Ear pain Nose: denies: Rhinorrhea / runny nose, Congestion Throat: denies: Oral lesions / sores, Sore throat Cardiac: denies: Chest pain / pressure, Palpitations Respiratory: denies: Dyspnea, Cough GI: reports: Abdominal Pain, Nausea, Vomiting, Diarrhea. denies: Constipation : denies: Dysuria, Frequency Skin: denies: Rash Musculoskeletal: denies: Neck pain, Back pain, Extremity pain Neurologic: denies: Generalized weakness, Focal weakness, Numbness PD PAST MEDICAL HISTORY - Past Medical History Cardiovascular: Hypertension Respiratory: Shortness of breath Neuro: TIA Endocrine/Autoimmune: None, HyPOthyroidism GI: Hepatitis : Other HEENT: None Psych: Depression, Anxiety Musculoskeletal: Osteoarthritis Derm: None - Past Surgical History Past Surgical History: Yes General: EGD, Other Ortho: Other - Present Medications Home Medications: Ambulatory Orders Medication Instructions Recorded Confirmed Citalopram Hydrobromide 10 mg PO DAILY 03/30/19 03/30/19 [Citalopram HBr] Losartan Potassium 25 mg PO DAILY 03/30/19 03/31/19 traZODone [Desyrel] 50 mg PO QPM 03/30/19 03/31/19 Omeprazole [PriLOSEC] 20 mg PO QDAC 03/31/19 03/31/19 Levothyroxine [Synthroid] 75 mcg PO QDAC #10 tablet 04/01/19 Thiamine [Vitamin B-1] 100 mg PO DAILY #10 tablet 04/01/19 cephALEXin [Keflex] 250 mg PO QID #28 capsule 04/01/19 Albuterol Sulfate [Proair Hfa 1 - 2 puffs INH Q4H PRN #1 inhaler 08/30/19 Inhaler] Dicyclomine [Bentyl] 1 - 2 tab PO QID PRN #20 cap 08/22/20 Loperamide [Imodium] 2 mg PO QID PRN #10 cap 08/22/20 Amox/Clav 875/125 [Augmentin] 1 each PO Q12H #14 tablet 09/13/20 Dicyclomine [Bentyl] 10 mg PO QID 09/13/20 09/13/20 Ergocalciferol [Vitamin D2] 1 09/13/20 Levothyroxine [Synthroid] 75 mcg PO QDAC 09/13/20 09/13/20 Loperamide [Imodium] 2 mg PO QID 09/13/20 09/13/20 Losartan Potassium 25 mg PO DAILY 09/13/20 09/13/20 Oxybutynin Chloride [Ditropan Xl] 5 mg PO TID 09/13/20 09/13/20 Pantoprazole [Protonix] 40 mg PO DAILY 09/13/20 09/13/20 hydrOXYzine HCL [Hydroxyzine HCl] 25 mg PO Q6HR PRN 09/13/20 09/13/20 - Allergies Allergies/Adverse Reactions: Allergies Allergy/AdvReac Type Severity Reaction Status Date / Time lisinopril Allergy Unknown Verified 08/22/20 12:20 - Social History Does the pt smoke?: Yes Smoking Status: Current every day smoker Does the pt drink ETOH?: No Does the pt have substance abuse?: Yes Substance Use and Type: Marijuana - POLST Patient has POLST: No PD ED PE NORMAL - Vitals Vital signs reviewed: Yes (hypertensive) - General General: Alert and oriented X 3, No acute distress, Well developed/nourished, Other (60 y/o female with vitiligo ) - HEENT HEENT: Atraumatic, PERRL, EOMI - Neck Neck: Supple, no meningeal sign, No bony TTP - Cardiac Cardiac: RRR, No murmur - Respiratory Respiratory: No respiratory distress, Clear bilaterally - Abdomen Abdomen: Normal bowel sounds, Soft, Non distended, No organomegaly, Other (RUQ tenderness to palpation with arrest of inhalation with palpation. 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2 RBC 4.67 Hgb 14.3 Hct 44.2 MCV 94.6 MCH 30.6 MCHC 32.4 RDW 13.2 Plt Count 347 MPV 9.0 Neut # (Auto) 6.5 Lymph # (Auto) 2.1 [place] # (Auto) 0.5 Eos # (Auto) 0.1 Baso # (Auto) 0.0 Absolute Nucleated RBC 0.00 Nucleated RBC % 0.0 Sodium 137 Potassium 3.7 Chloride 105 Carbon Dioxide 22 Anion Gap 10.0 BUN 16 Creatinine 0.9 Estimated GFR (MDRD) 64 L Glucose 123 H Calcium 8.9 Total Bilirubin 1.0 AST 25 ALT 24 Alkaline Phosphatase 76 Total Protein 7.6 Albumin 4.5 Globulin 3.1 Albumin/Globulin Ratio 1.5 Lipase 28 Urine Color YELLOW Urine Clarity CLEAR Urine pH 5.5 Ur Specific [place] 1.010 Urine Protein NEGATIVE Urine Glucose (UA) NEGATIVE Urine Ketones NEGATIVE Urine Occult Blood NEGATIVE Urine Nitrite POSITIVE H Urine Bilirubin NEGATIVE Urine Urobilinogen 0.2 (NORMAL) Ur Leukocyte Esterase SMALL H Urine RBC 3 Urine WBC 11-25 H Ur Squamous Epith Cells RARE Squamous Urine Bacteria Moderate H Ur Microscopic Review INDICATED Urine Culture Comments INDICATED - Rads (name of study) u/s RUQ Radiology: Prelim report reviewed (Impression: One. Cholelithiasis. Some s tones appear to be nonmobile bile, and the technologist reported a positive sonographic Lewis sign. These findings raise the possibility of acute cholecystitis, but are not confirmatory. Mild right pelvocaliectasis, a finding not visualized on recent CT), EMP read indepedently, See rad report Procedures - Bedside sono Bedside sono by EMP: With use of bedside ultrasound the right upper quadrant is imaged and there is sonographic tenderness to the gallbladder and there does appear to be a solitary stone present. There is no pericholecystic fluid or thickened gallbladder wall. - IVC sono (time) 0248 Bedside IVC sono: IVC measures (cm) (0.94), IVC collapsed c insp (cm) (complete), Dehydration (est 2 liter deficit) PD MEDICAL DECISION MAKING - ED course Complexity details: reviewed results, re-evaluated patient, considered differential, d/w patient ED course: 60-year-old female who has a history of irritable bowel syndrome tonight has evidence of a gallbladder attack with 4 stones in the neck of the gallbladder. There is no evidence for cholecystitis or choledocolithiasis by ultrasound or by blood work. The patient has improvement in her symptoms with the use of toradal IV. She is comfortable to go home and we will have her follow up with the surgeon. She has urinalysis consistent with infection. I queried the patient regarding infection symptoms and she responded that she usually has urinary frequency when she has infection and she has had this enough that she has stopped drinking as much fluids so she doesn't have to get up to go to the bathroom. MBCRFI(modified behavior causing reduced fluid intake). She reports that she has chills with infection and has complained for several weeks about her chills. 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 She has a culture from 3 weeks ago showing infection with E. Coli. and this seems like the same organism that she had in December of 2019 when she was treated with keflex. She indicates she did not get treatment 3 weeks ago and would like to get treatment. Departure - Departure Disposition: 01 Home, Self Care Clinical Impression: Dehydration Cholelithiasis Qualifiers: Cholelithiasis location: gallbladder Cholecystitis presence: without cholecystitis Biliary obstruction: without biliary obstruction Qualified Code(s): K80.20 - Calculus of gallbladder without cholecystitis without obstr uction Urinary tract infection Qualifiers: Urinary tract infection type: acute cystitis Hematuria presence: without hematuria Qualified Code(s): N30.00 - Acute cystitis without hematuria Condition: Stable Instructions: ED Dehydration, ED Diet Low Fat, ED Gallstone W Biliary Colic, ED UTI Cystitis Female Follow-Up: Reyna Dickson ARNP, [facility] [Primary Care Provider] - Keke Cabrales MD [Provider Admit Priv/Credential] - Prescriptions: Amox/Clav 875/125 [Augmentin] 1 each PO Q12H #14 tablet
[2020-09-13] MEDS ORDERED: KETOROLAC 30 MG/ML VIAL IVP STA (02:53)
[2020-09-13] MEDS ORDERED: SODIUM CHLORIDE 0.9% 1,000 ML IV STA (02:53)
[2020-09-13] MEDS ORDERED: ONDANSETRON 4 MG/2 ML VIAL IVP STA (02:53)
[2020-09-13 05:04] LABS: BILIRUBIN,URINE NEGATIVE (NEGATIVE); GLUCOSE, URINE (UA) NEGATIVE (NEGATIVE); KETONES,URINE (UA) NEGATIVE (NEGATIVE); LEUKOCYTE ESTERASE, URINE SMALL (NEGATIVE); NITRITE,URINE POSITIVE (NEGATIVE); OCCULT BLOOD,URINE NEGATIVE (NEGATIVE); PH,URINE 5.5 PH (5.0-7.5); PROTEIN,URINE NEGATIVE (NEGATIVE); UROBILINOGEN,URINE 0.2 (NORMAL) E.U./dL (NORMAL)
[2020-09-13 05:14] LABS: BACTERIA,URINE Moderate /HPF (None Seen); CLARITY,URINE CLEAR (CLEAR); RBC,URINE 3 /HPF (0-5); SQUAMOUS EPITHELIAL CELL,UR RARE Squamous (<= Few)
[2020-09-13 05:47] VITALS: BP 114/75
--- NOTE | 2020-09-13 10:46 | Ultrasound Report ---
PROCEDURE: Abdomen Limited INDICATIONS: RUQ pain TECHNIQUE: Real-time focused scanning was performed of the abdomen, with image documentation. COMPARISON: Prior CT, 09/03/2020. FINDINGS: The liver demonstrates normal size and echogenicity. No liver lesions are detected. 4gallstones are seen. 2 of these are mobile and 2 of these are seen within the gallbladder neck The g allbladder wall measures at the upper limits of normal at 3 mm. There is no specific pericholecystic fluid. The sonographic Lewis's sign is positive. No biliary ductal dilatation is seen. The common bile duct measures 8 mm. A gastric tube is seen, with the tip not visible within the [id number] of this image, although esthela rhonda below the diaphragm. The visualized right kidney demonstrates normal size. Mild pelvocaliectasis is seen of the right kidn ey, yet without cassy hydronephrosis. No definite shadowing stones are seen. This study is limited by body habitus. IMPRESSION: Gallstones are seen, including 2 nonmobile gallstones within the gallbladder neck. There is associate d minimal gallbladder wall thickening and a positive sonographic Lewis's sign. These imaging finding s are suspicious for cholecystitis. Please correlate with patient presentation, clinical examination findings, and laboratory values, as appropriate. Mild pelvocaliectasis of the right kidney, without cassy hydronephrosis. Note: No significant discrepancy from the preliminary report. Reviewed by: Wily Leyva MD on 09/13/2020 9:44 AM DEL Approved by: Wily Leyva MD on 09/13/2020 9:44 AM DEL Station ID: [id number]
== END 2020-09-13 06:18 | disposition home or self-care (01) ==
LOC: EDUNIT# → ED 02:05
DX: K80.20 Calculus of gallbladder without cholecystitis without obstruction (principal); E86.0 Dehydration; N30.00 Acute cystitis without hematuria; K58.0 Irritable bowel syndrome with diarrhea; Z90.5 Acquired absence of kidney; L80 Vitiligo; I10 Essential (primary) hypertension; F17.200 Nicotine dependence, unspecified, uncomplicated
CPT/HCPCS: 36415; 80053; 81001; 81003; 83690; 85025; 87077; 87086; 87181; 96361; 96374; 96375; 99284

== ENCOUNTER 2020-09-24 08:00 | Outpatient (CLI) | payer MEDICAID | END 2020-09-24 23:59 | disposition home or self-care (01) | LOC: LAB.R 08:00 | PROVIDERS: ATTEND Nurse Practitioner | DX: R82.81 Pyuria (principal); R35.0 Frequency of micturition | CPT/HCPCS: 87086 ==

== ENCOUNTER 2020-10-15 11:57 | Outpatient (CLI) | payer MEDICAID | END 2020-10-15 11:58 | disposition home or self-care (01) | LOC: LAB 11:57 | PROVIDERS: ATTEND Family Medicine | DX: E55.9 Vitamin D deficiency, unspecified (principal) | CPT/HCPCS: 36415; 82306 ==

== ENCOUNTER 2020-10-29 08:00 | Outpatient (CLI) | payer MEDICAID ==
[2020-10-29 12:15] LABS: ALBUMIN 4.6 g/dL (3.2-5.5); ALBUMIN/GLOBULIN RATIO 1.6 (1.0-2.2); BILIRUBIN,TOTAL 1.7 mg/dL (0.2-1.0); CALCIUM 9.2 mg/dL (8.5-10.3); CREATININE 0.9 mg/dL (0.4-1.0); POTASSIUM 4.7 mmol/L (3.5-5.0); TOTAL PROTEIN 7.5 g/dL (6.7-8.2)
[2020-10-29 12:29] LABS: THYROID STIMULATING HORMONE 0.92 uIU/mL (0.34-5.60)
[2020-10-31 07:56] LABS: HCV RNA QUANT RT PCR <15 NOT DETECTED IU/mL
[2020-11-01 22:31] LABS: HEPATITIS C VIRAL RNA GENOTYPE NOT DETECTED
== END 2020-10-29 23:59 | disposition home or self-care (01) ==
LOC: LAB.WCP 08:00
PROVIDERS: ATTEND Family Medicine
DX: I45.81 Long QT syndrome (principal); E03.9 Hypothyroidism, unspecified; B18.2 Chronic viral hepatitis C
CPT/HCPCS: 36415; 80053; 84443; 87522; 87902

== ENCOUNTER 2020-12-11 08:23 | Outpatient (CLI) | payer MEDICAID ==
[2020-12-11 09:06] LABS: BASOPHILS % (AUTO) 0.2 %; EOSINOPHILS % (AUTO) 0.6 %; HCT - HEMATOCRIT 42.1 % (37.0-47.0); HGB - HEMOGLOBIN 14.6 g/dL (12.0-16.0); LYMPHOCYTES # (AUTO) 1.4 10^3/uL (1.5-3.5); LYMPHOCYTES % (AUTO) 28.2 %; MEAN CORPUSCULAR HEMOGLOBIN 31.9 pg (27.0-31.0); MEAN CORPUSCULAR HGB CONC 34.7 g/dL (32.0-36.0); MEAN CORPUSCULAR VOLUME 91.9 fL (81.0-99.0); MEAN PLATELET VOLUME 8.9 fL (7.9-10.8); MONOCYTES # (AUTO) 0.4 10^3/uL (0.0-1.0); MONOCYTES % (AUTO) 7.1 %; NEUTROPHILS # (AUTO) 3.2 10^3/uL (1.5-6.6); NEUTROPHILS % (AUTO) 63.5 %; PLT - PLATELET COUNT 284 10^3/uL (130-450); RED BLOOD COUNT 4.58 10^6/uL (4.20-5.40); RED CELL DISTRIBUTION WIDTH 12.8 % (12.0-15.0); WHITE BLOOD COUNT 5.1 x10^3/uL (4.8-10.8)
[2020-12-11 09:15] LABS: INR 1.2 (0.8-1.2); PT - PROTHROMBIN TIME 13.6 secs (9.9-12.6)
[2020-12-11 09:22] LABS: ALBUMIN 4.8 g/dL (3.2-5.5); ALBUMIN/GLOBULIN RATIO 1.7 (1.0-2.2); BILIRUBIN,TOTAL 1.9 mg/dL (0.2-1.0); CALCIUM 9.3 mg/dL (8.5-10.3); TOTAL PROTEIN 7.7 g/dL (6.7-8.2)
[2020-12-12 13:27] LABS: HEPATITIS A IGM NON-REACTIVE (NON-REACTIVE); HEPATITIS B CORE ANTIBODY IGM NON-REACTIVE (NON-REACTIVE); HEPATITIS B SURFACE ANTIGEN NON-REACTIVE (NON-REACTIVE); HEPATITIS C ANTIBODY REACTIVE (NON-REACTIVE)
[2020-12-12 13:28] LABS: HEPATITIS C ANTIBODY REACTIVE (NON-REACTIVE)
== END 2020-12-11 08:24 | disposition home or self-care (01) ==
LOC: LAB 08:23
PROVIDERS: ATTEND Physician Assistant
DX: B18.2 Chronic viral hepatitis C (principal)
CPT/HCPCS: 36415; 80053; 80074; 85025; 85610; 86803; 87902

== ENCOUNTER 2020-12-15 08:21 | Outpatient (CLI) | payer MEDICAID ==
[2020-12-15 08:59] LABS: ALBUMIN 4.6 g/dL (3.2-5.5); ALBUMIN/GLOBULIN RATIO 1.5 (1.0-2.2); BILIRUBIN,TOTAL 1.1 mg/dL (0.2-1.0); CALCIUM 8.8 mg/dL (8.5-10.3); CREATININE 0.9 mg/dL (0.4-1.0); POTASSIUM 3.6 mmol/L (3.5-5.0); TOTAL PROTEIN 7.7 g/dL (6.7-8.2)
[2020-12-15 09:17] LABS: THYROID STIMULATING HORMONE 1.68 uIU/mL (0.34-5.60)
[2020-12-17 11:56] LABS: HCV RNA QUANT RT PCR <15 NOT DETECTED IU/mL
[2020-12-19 00:06] LABS: HEPATITIS C VIRAL RNA GENOTYPE NOT DETECTED
== END 2020-12-15 08:22 | disposition home or self-care (01) ==
LOC: LAB 08:21
PROVIDERS: ATTEND Family Medicine
DX: R94.31 Abnormal electrocardiogram [ECG] [EKG] (principal); E03.9 Hypothyroidism, unspecified; B18.2 Chronic viral hepatitis C; E55.9 Vitamin D deficiency, unspecified
CPT/HCPCS: 36415; 80053; 82306; 84443; 87522; 87902

== ENCOUNTER 2021-01-05 10:55 | Day surgery (SDC) | payer MEDICAID ==
[2021-01-05] MEDS ORDERED: LACTATED RINGERS 1,000 ML IV ONE ×2 (11:11→13:08)
--- NOTE | 2021-01-05 11:16 | ANESTHESIA ---
Pre-Anesthesia VS, & Labs - Diagnosis hematochezia - Procedure Colonoscopy, EGD Height: 4 ft 7 in Weight (kg): 71.6 kg Body Mass Index: 36.6 BMI Classification: Obese - NPO >8 hours - Is Patient ?: No - Lab Results Lab results reviewed: Yes Home Medications and Allergies Citalopram Hydrobromide [Citalopram HBr] 25 mg PO DAILY 03/30/19 traZODone [Desyrel] 50 mg PO QPM 03/30/19 Omeprazole [PriLOSEC] 20 mg PO QDAC 03/31/19 Levothyroxine [Synthroid] 75 mcg PO QDAC 09/13/20 Losartan Potassium 25 mg PO DAILY 09/13/20 Oxybutynin Chloride [Ditropan Xl] 5 mg PO TID 09/13/20 Allergies/Adverse Reactions: Allergies Allergy/AdvReac Type Severity Reaction Status Date / Time lisinopril Allergy Unknown Verified 01/05/21 11:23 Anes History & Medical History - Anesthetic History Anesthesia Complications: reports: No previous complications Family history of Anesthesia Complications: Denies Family history of Malignant Hyperthermia: Denies - Medical History Cardiovascular: reports: Hypertension Pulmonary: reports: Asthma, Shortness of breath, Sleep apnea (no CPAP use(pt states insurance won't cover)) Gastrointestinal: reports: GERD, Colon polyps, Hepatitis, Cholelithiasis Urinary: reports: Other Neuro: reports: TIA Musculoskeletal: reports: Osteoarthritis, Scoliosis Endocrine/Autoimmune: reports: HyPOthyroidism Blood Disorders: reports: None Skin: reports: Other Smoking Status: Current every day smoker - Surgical History General: reports: Colonoscopy, EGD, Other Urologic: reports: Nephrectomy Orthopedic: reports: Other Exam General: Alert, Oriented x3, Cooperative, No acute distress Dental: WNL Mouth Openin Fingerbreadth Neck Mobility: Normal Mallampati classification: II Respiratory: Lungs clear, Normal breath sounds, No respiratory distress, No accessory muscle use Cardiovascular: Regular rate, Normal S1, Normal S2, No murmurs Plan Anesthesia Type: General, Total IV Consent for Procedure(s) Verified and Reviewed: Yes Code Status: Attempt Resuscitation ASA classification: 3-Severe systemic disease Is this case an emergency?: No
[2021-01-05] MEDS ORDERED: PROPOFOL 200 MG/20 ML VIAL IVP ONE ×2 (11:25→12:41)
[2021-01-05] MEDS ORDERED: LIDOCAINE-PF 2% 10 ML AMP SUBQ ONE (11:26)
[2021-01-05] MEDS ORDERED: LIDO GARGLE 30 ML BOTTLE ONE (11:43)
[2021-01-05] MEDS ORDERED: MIDAZOLAM 2 MG/2 ML VIAL ONE (12:32)
[2021-01-05 13:32] VITALS: BP 131/70
--- NOTE | 2021-01-05 13:50 | ANESTHESIA POST OP EVALUATION ---
Anesthesia Post Eval - Post Anesthesia Eval Vitals: Last Vital Signs Temp 36.1 C L 01/05/21 13:08 Pulse 48 L 01/05/21 13:30 Resp 20 01/05/21 13:30 BP 131/70 H 01/05/21 13:30 Pulse Ox 100 01/05/21 13:30 CV Function Including HR & BP: Stable Pain Control: Satisfactory Nausea & Vomiting: Negative Mental Status: Baseline Respiratory Status: Airway Patent Hydration Status: Satisfactory Anesthesia Complications: None
== END 2021-01-05 10:56 | disposition home or self-care (01) ==
LOC: SDS 10:55
PROVIDERS: ATTEND Surgery
PROC: 0DBP8ZZ Excision of Rectum, Via Natural or Artificial Opening Endoscopic (ICD-10-PCS; 2021-01-05)
PROC: 0DBB8ZX Excision of Ileum, Via Natural or Artificial Opening Endoscopic, Diagnostic (ICD-10-PCS; 2021-01-05)
PROC: 0DB98ZX Excision of Duodenum, Via Natural or Artificial Opening Endoscopic, Diagnostic (ICD-10-PCS; 2021-01-05)
PROC: 0DB78ZX Excision of Stomach, Pylorus, Via Natural or Artificial Opening Endoscopic, Diagnostic (ICD-10-PCS; 2021-01-05)
PROC: 0DB38ZX Excision of Lower Esophagus, Via Natural or Artificial Opening Endoscopic, Diagnostic (ICD-10-PCS; 2021-01-05)
PROC: 0DB48ZX Excision of Esophagogastric Junction, Via Natural or Artificial Opening Endoscopic, Diagnostic (ICD-10-PCS; 2021-01-05)
PROC: 0DBH8ZZ Excision of Cecum, Via Natural or Artificial Opening Endoscopic (ICD-10-PCS; principal; 2021-01-05 12:15)
PROC: 0DBE8ZX Excision of Large Intestine, Via Natural or Artificial Opening Endoscopic, Diagnostic (ICD-10-PCS; 2021-01-05 12:15)
DX: K52.9 Noninfective gastroenteritis and colitis, unspecified (principal); K21.9 Gastro-esophageal reflux disease without esophagitis; D12.0 Benign neoplasm of cecum; K62.1 Rectal polyp; K29.50 Unspecified chronic gastritis without bleeding; K31.7 Polyp of stomach and duodenum; K44.9 Diaphragmatic hernia without obstruction or gangrene; B18.2 Chronic viral hepatitis C; R19.5 Other fecal abnormalities; K64.8 Other hemorrhoids; G47.33 Obstructive sleep apnea (adult) (pediatric); J45.909 Unspecified asthma, uncomplicated; E66.9 Obesity, unspecified; Z68.36 Body mass index [BMI] 36.0-36.9, adult; K80.20 Calculus of gallbladder without cholecystitis without obstruction
CPT/HCPCS: 43239; 45380; 87635; A9270; J7120

== ENCOUNTER 2021-01-21 08:57 | Outpatient (CLI) | payer MEDICAID ==
[2021-01-21 09:55] LABS: BILIRUBIN,DIRECT 0.1 mg/dL (0.1-0.5); BILIRUBIN,INDIRECT 1.7 mg/dL; BILIRUBIN,TOTAL 1.8 mg/dL (0.2-1.0)
== END 2021-01-21 08:58 | disposition home or self-care (01) ==
LOC: LAB 08:57
PROVIDERS: ATTEND Physician Assistant
DX: R17 Unspecified jaundice (principal); Z86.19 Personal history of other infectious and parasitic diseases
CPT/HCPCS: 36415; 82247; 82248

== ENCOUNTER 2021-05-27 10:15 | Outpatient (CLI) | payer MEDICAID ==
--- NOTE | 2021-05-28 11:57 | Mammography Report ---
BILATERAL DIGITAL SCREENING MAMMOGRAM 3D/2D: 05/27/2021 CLINICAL: Routine screening. Comparison is made to exams dated: 12/29/2017 mammogram, 12/02/2017 mammogram, 09/01/2015 mammogram, an d 09/03/2013 mammogram - [facility]. The tissue of both breasts is predominantly fa tty. No significant masses, calcifications, or other findings are seen in either breast. There has been no significant interval change. IMPRESSION: NEGATIVE There is no mammographic evidence of malignancy. A 1 year screening mammogram is recommended. This exam was interpreted at Station ID: [id number]. NOTE: For mammograms, a report in lay terms will be sent to the patient. Approximately 15% of breast malignancies will not be visualized mammographically. In the management of a palpable breast mass, a negative mammogram must not discourage biopsy of a clinically suspicious lesion. Electronically Signed By: Hammad Adamson M.D., jr/kiara:05/27/2021 12:42:17 ACR BI-RADS Category 1: Negative 3341F PARENCHYMAL PATTERN: (F) - The breast(s) demonstrate(s) diffuse fatty replacement. BI-RADS CATEGORY: (1) - 1 RECOMMENDATION: (ANNUAL) - Recommend routine annual screening mammography. [id number] 1 year screening LATERALITY: (B)
== END 2021-05-27 10:16 | disposition home or self-care (01) ==
LOC: DI 10:15
DX: Z12.31 Encounter for screening mammogram for malignant neoplasm of breast (principal)

== ENCOUNTER 2021-07-17 12:58 | Emergency (ER) | payer MEDICAID ==
--- NOTE | 2021-07-17 13:29 | ED Physician Documentation ---
PD HPI LOWER EXT INJURY - Stated complaint Stated Complaint: DIFFICULTY WALKING - Chief complaint Chief Complaint: Ext Problem - History obtained from History obtained from: Patient - Additional information Additional information: 61-year-old woman with history of hepatitis C in remission, depression and hypertension presents with bilateral leg pain and swelling for the last 2 to 3 months. There does not seem to be a particular pattern to it. It does get worse after walking though. There was no specific injury. She saw her primary care physician who she felt did not address the problem and presents to the emergency department today for further evaluation and treatment. Review of Systems Constitutional: denies: Fever, Chills Cardiac: reports: Palpitations (Chronic). denies: Chest pain / pressure Respiratory: denies: Dyspnea, Cough GI: denies: Abdominal Pain PD PAST MEDICAL HISTORY - Past Medical History Cardiovascular: Hypertension Respiratory: Shortness of breath Neuro: TIA Endocrine/Autoimmune: None, HyPOthyroidism GI: Hepatitis : Other HEENT: None Psych: Depression, Anxiety Musculoskeletal: Osteoarthritis Derm: None - Past Surgical History Past Surgical History: Yes General: EGD, Other Ortho: Other - Present Medications Home Medications: Ambulatory Orders Medication Instructions Recorded Confirmed Citalopram Hydrobromide 25 mg PO DAILY 03/30/19 01/05/21 [Citalopram HBr] traZODone [Desyrel] 50 mg PO QPM 03/30/19 01/05/21 Omeprazole [PriLOSEC] 20 mg PO QDAC 03/31/19 01/05/21 Albuterol Sulfate [Proair Hfa 1 - 2 puffs INH Q4H PRN #1 inhaler 08/30/19 01/05/21 Inhaler] Levothyroxine [Synthroid] 75 mcg PO QDAC 09/13/20 01/05/21 Losartan Potassium 25 mg PO DAILY 09/13/20 01/05/21 Meloxicam [Mobic] 7.5 mg PO BID PRN #20 tablet 07/17/21 - Allergies Allergies/Adverse Reactions: Allergies Allergy/AdvReac Type Severity Reaction Status Date / Time lisinopril Allergy Unknown Verified 07/17/21 13:07 - Social History Does the pt smoke?: Yes Smoking Status: Current every day smoker Does the pt drink ETOH?: No Does the pt have substance abuse?: Yes - POLST Patient has POLST: No PD ED PE NORMAL - Vitals Vital signs reviewed: Yes - General General: Alert and oriented X 3, No acute distress - Back Back: Other (Mild low back tenderness) - Extremities Extremities: Other (Examination of both legs shows no swelling. She does have vitiligo. She has kind of diffuse muscular tenderness of both legs with intact strength and sensation throughout.) - Neuro Neuro: Alert and oriented X 3, Normal speech - Psych Psych: Normal mood, Normal affect Results - Vitals Vitals: Vital Signs - 24 hr 07/17/21 13:02 Temperature 36.2 C L Heart Rate 77 Respiratory 18 Rate Blood Pressure 121/83 H O2 Saturation 96 Oxygen O2 Source Room air - Labs Labs: Laboratory Tests 07/17/21 07/17/21 13:47 13:47 ESR 13 Sodium 140 Potassium 4.8 Chloride 104 Carbon Dioxide 27 Anion Gap 9.0 BUN 16 Creatinine 1.0 Estimated GFR (MDRD) 56 L Glucose 112 H Calcium 9.4 Total Creatine Kinase 250 C-Reactive Protein < 1.0 PD MEDICAL DECISION MAKING - ED course ED course: 61-year-old woman presents with bilateral leg swelling and weakness. The examination shows some muscular tenderness but no findings consistent with radiculopathy. Differential diagnosis includes polymyalgia rheumatica although she does not have a typical history of this and denies shoulder girdle pain, spinal stenosis, but she has no sensory difficulties or saddle anesthesia or incontinence, some sort of myositis or other inflammatory issue. Departure - Departure Disposition: 01 Home, Self Care Clinical Impression: Pain of lower extremity Qualifiers: Laterality: bilateral Qualified Code(s): M79.604 - Pain in right leg; M79.605 - Pain in left leg Condition: Good Record reviewed to determine appropriate education?: Yes Instructions: ED Acute Pain [facility] Prescriptions: Meloxicam [Mobic] 7.5 mg PO BID PRN #20 tablet PRN Reason: Pain Comments: I sent you prescription electronically to [facility]. The inflammatory markers and labs looking at evidence of muscle disease were negative. As such I suspect you probably have spinal stenosis. Talk with your doctor about a order for an MRI given the time course (2 to 3 months), and decreased functionality because of it. Return for new or worsening symptoms.
[2021-07-17 14:27] LABS: BUN - BLOOD UREA NITROGEN 16 mg/dL (6-20); CALCIUM 9.4 mg/dL (8.5-10.3); CARBON DIOXIDE - CO2 27 mmol/L (21-32); CHLORIDE 104 mmol/L (101-111); CK- CREATINE KINASE 250 IU/L (22-269); GFR - MDRD 56 (>89); GLUCOSE 112 mg/dL (70-100); POTASSIUM 4.8 mmol/L (3.5-5.0); SODIUM 140 mmol/L (135-145)
[2021-07-17 14:34] LABS: CRP - C-REACTIVE PROTEIN < 1.0 mg/dL (0-1.0)
[2021-07-17 15:10] VITALS: BP 127/77
== END 2021-07-17 15:16 | disposition home or self-care (01) ==
LOC: ED 12:58
DX: M79.605 Pain in left leg (principal); M79.604 Pain in right leg; I10 Essential (primary) hypertension; F17.200 Nicotine dependence, unspecified, uncomplicated
CPT/HCPCS: 36415; 80048; 82550; 85651; 86140; 99283

== ENCOUNTER 2021-07-24 11:22 | Outpatient (CLI) | payer MEDICAID ==
--- NOTE | 2021-07-24 17:06 | XRAY Report ---
PROCEDURE: Lumbar Spine 2 View INDICATIONS: XRAY TECHNIQUE: 3 views of the lumbar spine were acquired. COMPARISON: 10/17/2017 FINDINGS: Bones: 5 [id number] vertebrae are present. There is stable bony alignment with minimal grade 1 anterolisthesis of L5 on S1. No acute vertebral body compression fractures. No suspicious bony les ions. Multilevel lumbar spondylosis throughout the imaged spine with mid and lower lumbar facet arth ropathy. Soft tissues: Overlying bowel gas pattern is normal. No suspicious soft tissue calcifications. Mult iple surgical clips are noted in the left upper abdomen and left lower abdomen, stable. IMPRESSION: Lumbar spine without acute osseous abnormalities. Multilevel lumbar spondylosis. Stable grade 1 anterolisthesis of L5 on S1. Reviewed by: Matthieu Smith MD on 07/24/2021 5:04 PM PST Approved by: Matthieu Smith MD on 07/24/2021 5:04 PM PST Station ID: [id number]
== END 2021-07-24 11:23 | disposition home or self-care (01) ==
LOC: DI.N 11:22
PROVIDERS: ATTEND Nurse Practitioner Family
DX: M47.816 Spondylosis without myelopathy or radiculopathy, lumbar region (principal); M43.17 Spondylolisthesis, lumbosacral region

== ENCOUNTER 2021-08-26 08:20 | Outpatient (CLI) | payer MEDICAID ==
--- NOTE | 2021-08-26 14:54 | MRI Report ---
PROCEDURE: MRI lumbar spine without contrast INDICATIONS: Low back pain TECHNIQUE: Noncontrast sagittal T1 spin echo and T2 fast echo, sagittal STIR, axial T1 and T2 fast spin echo thr ough the lumbar spine. In cases with scoliosis, additional coronal T2 fast spin echo may be performe d. COMPARISON: None. FINDINGS: Image quality: Excellent. Alignment and Curvature: There is normal bony alignment. Bone Marrow: Marrow is of normal overall signal. No acute vertebral body compression fractures. Spinal Cord: Conus medullaris terminates at the L1 level. Visualized cord demonstrates normal signa l and size. Paraspinous Soft Tissues: No paravertebral masses. Incidental midline sacral perineural cysts with sacral remodeling noted. T12-L1: Normal in appearance. L1-L2: Normal in appearance. L2-L3: Normal in appearance. L3-L4: Normal in appearance. L4-L5: Mild disc space narrowing and circumferential disc bulge with hypertrophic facet joints are present. Mild central stenosis and no foraminal stenosis. L5-S1: Disc height is maintained. Mild hypertrophic facet joints without disc bulge, central or for aminal stenosis. IMPRESSION: Mild lower lumbar spine degenerative disc disease and arthropathy without significant central or fora bro stenosis. Reviewed by: Long Burrell MD on 08/26/2021 1:53 PM [facility] Approved by: Long Burrell MD on 08/26/2021 1:53 PM [facility] Station ID: [id number]
== END 2021-08-26 08:21 | disposition home or self-care (01) ==
LOC: DI 08:20
PROVIDERS: ATTEND Nurse Practitioner Family
DX: R26.2 Difficulty in walking, not elsewhere classified (principal); M47.816 Spondylosis without myelopathy or radiculopathy, lumbar region; M51.36 Other intervertebral disc degeneration, lumbar region; M48.061 Spinal stenosis, lumbar region without neurogenic claudication

== ENCOUNTER 2022-04-06 11:03 | Outpatient (CLI) | payer MEDICAID ==
[2022-04-06 11:19] LABS: BASOPHILS # (AUTO) 0.1 10^3/uL (0.0-0.1); BASOPHILS % (AUTO) 0.8 %; EOSINOPHILS % (AUTO) 0.5 %; HCT - HEMATOCRIT 46.4 % (37.0-47.0); LYMPHOCYTES # (AUTO) 1.7 10^3/uL (1.5-3.5); LYMPHOCYTES % (AUTO) 25.5 %; MEAN CORPUSCULAR HEMOGLOBIN 31.4 pg (27.0-31.0); MEAN CORPUSCULAR HGB CONC 32.3 g/dL (32.0-36.0); MEAN CORPUSCULAR VOLUME 97.3 fL (81.0-99.0); MONOCYTES # (AUTO) 0.4 10^3/uL (0.0-1.0); MONOCYTES % (AUTO) 5.4 %; NEUTROPHILS # (AUTO) 4.4 10^3/uL (1.5-6.6); NEUTROPHILS % (AUTO) 67.2 %; PLT - PLATELET COUNT 299 10^3/uL (130-450); RED BLOOD COUNT 4.77 10^6/uL (4.20-5.40); RED CELL DISTRIBUTION WIDTH 13.2 % (12.0-15.0); WHITE BLOOD COUNT 6.5 x10^3/uL (4.8-10.8)
[2022-04-06 11:28] LABS: BILIRUBIN,URINE NEGATIVE (NEGATIVE); GLUCOSE, URINE (UA) NEGATIVE (NEGATIVE); KETONES,URINE (UA) NEGATIVE (NEGATIVE); LEUKOCYTE ESTERASE, URINE MODERATE (NEGATIVE); NITRITE,URINE POSITIVE (NEGATIVE); OCCULT BLOOD,URINE NEGATIVE (NEGATIVE); PROTEIN,URINE TRACE mg/dL (NEGATIVE); UROBILINOGEN,URINE 0.2 (NORMAL) E.U./dL (NORMAL)
[2022-04-06 11:33] LABS: CLARITY,URINE SL. CLOUDY (CLEAR)
[2022-04-06 11:37] LABS: ALBUMIN 4.8 g/dL (3.2-5.5); ALBUMIN/GLOBULIN RATIO 1.5 (1.0-2.2); ALKALINE PHOSPHATASE 92 IU/L (42-121); ALT ALANINE AMINOTRANSFERASE 19 IU/L (10-60); AST ASPARTATE AMINOTRANSFERASE 25 IU/L (10-42); BACTERIA,URINE Moderate /HPF (None Seen); BILIRUBIN,TOTAL 1.6 mg/dL (0.2-1.0); BUN - BLOOD UREA NITROGEN 19 mg/dL (6-20); CALCIUM 9.6 mg/dL (8.5-10.3); CARBON DIOXIDE - CO2 24 mmol/L (21-32); CHLORIDE 107 mmol/L (101-111); CHOL/HDL RATIO 2.8 (<4.4); CHOLESTEROL 245 mg/dL; GFR - MDRD 56 (>89); GLUCOSE 102 mg/dL (70-100); HDL CHOLESTEROL 89 mg/dL; LDL CHOLESTEROL,CALCULATED 134 mg/dL; LDL/HDL RATIO 1.5 (<4.4); POTASSIUM 4.2 mmol/L (3.5-5.0); RBC,URINE 0-5 /HPF (0-5); SODIUM 140 mmol/L (135-145); SQUAMOUS EPITHELIAL CELL,UR MOD Squamous (<= Few); TOTAL PROTEIN 8.1 g/dL (6.7-8.2); TRIGLYCERIDES 108 mg/dL; VLDL CHOLESTEROL 22 mg/dL; WBC,URINE >25 /HPF (0-5)
[2022-04-06 11:47] LABS: THYROID STIMULATING HORMONE 2.34 uIU/mL (0.34-5.60)
[2022-04-06 12:52] LABS: ESTIMATED AVERAGE GLUCOSE 97 mg/dL (70-100)
== END 2022-04-06 11:04 | disposition home or self-care (01) ==
LOC: LAB 11:03
PROVIDERS: ATTEND Nurse Practitioner Family
DX: Z00.00 Encounter for general adult medical examination without abnormal findings (principal); I10 Essential (primary) hypertension; E55.9 Vitamin D deficiency, unspecified; E03.9 Hypothyroidism, unspecified; M54.50 Low back pain, unspecified; G89.29 Other chronic pain
CPT/HCPCS: 36415; 80053; 80061; 81001; 82306; 83036; 83721; 84443; 85025; 87086

== ENCOUNTER 2022-06-03 06:22 | Outpatient (CLI) | payer MEDICAID ==
--- NOTE | 2022-06-03 12:00 | Ultrasound Report ---
PROCEDURE: Carotid Doppler Complete INDICATIONS: RUQ ABD PAIN, POSTURAL DIZZINESS TECHNIQUE: Color and pulse Doppler interrogation was performed of both carotid systems, with image documentation and velocity measurements. COMPARISON: None. FINDINGS: Right side: Brachial blood pressure: Not obtained mm Hg. Common carotid artery peak systolic velocity: 80 cm/sec. Internal carotid artery peak systolic velocity: 80 cm/sec. Internal carotid artery end diastolic velocity: 32 cm/sec. External carotid artery peak systolic velocity: 63 cm/sec. ICA/CCA peak systolic ratio: 1.0 . Buenrostro scale imaging description: No visible stenosis or significant plaque. Percent internal carotid artery stenosis: Less than 50% . Vertebral artery: Flow direction is antegrade. Left side: Brachial blood pressure: Not obtained mm Hg. Common carotid artery peak systolic velocity: 73 cm/sec. Internal carotid artery peak systolic velocity: 87 cm/sec. Internal carotid artery end diastolic velocity: 36 cm/sec. External carotid artery peak systolic velocity: 53 cm/sec. ICA/CCA peak systolic ratio: 1.2 . Buenrostro scale imaging description: No stenosis or visible plaque. Percent internal carotid artery stenosis: Less than 50% . Vertebral artery: Flow direction is antegrade. IMPRESSION: No hemodynamically significant stenosis in either carotid system. No significant plaque in the carotid arteries. Antegrade vertebral artery flow bilaterally. The estimate of stenosis included in the report of the imaging study was calculated using the NASCET method Reviewed by: Cassi Carr MD on 06/03/2022 11:59 AM PST Approved by: Cassi Carr MD on 06/03/2022 11:59 AM PST Station ID: [id number]
--- NOTE | 2022-06-03 13:03 | Ultrasound Report ---
PROCEDURE: Abdomen Limited INDICATIONS: RUQ ABD PAIN, POSTURAL DIZZINESS TECHNIQUE: Real-time focused scanning was performed of the abdomen, with image documentation. COMPARISON: Ultrasound abdomen limited, 09/13/2020. CT abdomen without, 09/03/2020. FINDINGS: Liver: Liver is normal in size and demonstrates increased echotexture. Portal vein is patent. Gallbladder: The gallbladder is contracted. There are gallstones. The gallbladder wall measures 2.2 m m in thickness. No pericholecystic fluid collection or no sonographic Lewis sign. Biliary ducts: Intrahepatic bile ducts are non-dilated. Extrahepatic bile duct caliber measures 3.5 mm. Normal is 6-7 mm or less in diameter, or 10 mm or less post-cholecystectomy. Pancreas: Visualized portions of the pancreas are sonographically normal. Right kidney: Right kidney measures 9.5 cm and demonstrates normal echotexture. There is a 1 cm ston e in the superior pole. No hydronephrosis. No solid masses. IVC: Intrahepatic inferior vena cava is patent. Miscellaneous: No free abdominal fluid. IMPRESSION: 1. Cholelithiasis. Gallbladder is contracted. No pericholecystic progression or sonographic Lewis si gn. 2. A 1 cm noncalcified stone in the superior pole of the right kidney. 3. Diffusely increased hepatic echotexture likely secondary to fatty infiltration. Please correlate w ith liver function tests. Reviewed by: Queenie Galvan MD on 06/03/2022 1:02 PM PST Approved by: Queenie Galvan MD on 06/03/2022 1:02 PM PST Station ID: [id number]
== END 2022-06-03 06:23 | disposition home or self-care (01) ==
LOC: DI 06:22
PROVIDERS: ATTEND Nurse Practitioner Family
DX: R42 Dizziness and giddiness (principal); I10 Essential (primary) hypertension; K80.20 Calculus of gallbladder without cholecystitis without obstruction; N20.0 Calculus of kidney
CPT/HCPCS: 93880

== ENCOUNTER 2022-06-25 08:24 | Outpatient (CLI) | payer MEDICAID ==
--- NOTE | 2022-06-28 10:26 | Mammography Report ---
BILATERAL DIGITAL SCREENING MAMMOGRAM 3D/2D: 06/25/2022 CLINICAL: Routine screening. Comparison is made to exams dated: 05/27/2021 mammogram, 12/29/2017 mammogram, 12/02/2017 mammogram, mammogram, and 09/03/2013 mammogram - [facility]. Both breasts are almost entirely fatty (category a/<25% glandular tissue). No significant masses, calcifications, or other findings are seen in either breast. There has been no significant interval change. IMPRESSION: NEGATIVE There is no mammographic evidence of malignancy. A 1 year screening mammogram is recommended. Based on the Tyrer Cuzick model (a risk assessment model) the patients lifetime risk is 2.4% and her 10 year risk is 1.0%. According to the ACR, ACS, and NCCN guidelines, an annual breast MRI exam [place] g with mammogram is recommended if the patients lifetime risk is 20% or greater. This exam was interpreted at Station ID: [id number]. NOTE: For mammograms, a report in lay terms will be sent to the patient. Approximately 15% of breast malignancies will not be visualized mammographically. In the management of a palpable breast mass, a negative mammogram must not discourage biopsy of a clinically suspicious lesion. Electronically Signed By: Gina stokes/kiara:06/25/2022 13:07:52 ACR BI-RADS Category 1: Negative 3341F PARENCHYMAL PATTERN: (F) - The breast(s) demonstrate(s) diffuse fatty replacement. BI-RADS CATEGORY: (1) - 1 RECOMMENDATION: (ANNUAL) - Recommend routine annual screening mammography. [id number] 1 year screening LATERALITY: (B)
== END 2022-06-25 08:25 | disposition home or self-care (01) ==
LOC: DI 08:24
PROVIDERS: ATTEND Nurse Practitioner Family
DX: Z12.31 Encounter for screening mammogram for malignant neoplasm of breast (principal)

== ENCOUNTER 2022-06-25 08:26 | Outpatient (CLI) | payer MEDICAID ==
--- NOTE | 2022-06-25 10:02 | DEXA Report ---
PROCEDURE: Dexa Spine and/or Hip INDICATIONS: POSTMENOPAUSAL TECHNIQUE: Dual energy x-ray absorptiometry (DXA) was performed on a [employer] System. Regions measur ed are the AP Spine, femoral neck, and if needed forearm. COMPARISON: None. FINDINGS: Lumbar Spine: Bone Mineral Density 0.82 g/cm/cm,T score -3, Left Femoral Neck: Bone Mineral Density 0.72 g/cm/cm, T score -2.3, Left Hip: Bone Mineral Density 0.82 g/cm/cm,T score -1.5, (T score greater or equal to -1.0: NORMAL) (T score from -1.1 to -2.4: OSTEOPENIA) (T score less than or equal to -2.5 to: OSTEOPOROSIS) Impression: Elevated fracture risk. Osteoporosis of the lumbar spine. Osteopenia of the left femoral neck and hea d. Patients with diagnosis of osteoporosis or osteopenia should have regular bone mineral density assess ment. For those eligible for Medicare, routine testing is allowed once every 2 years. Testing frequ ency can be increased for patients who have rapidly progressing disease or for those who are receivin g medical therapy to restore bone mass. Reviewed by: Manohar Oreilly MD on 06/25/2022 10:00 AM PST Approved by: Manohar Oreilly MD on 06/25/2022 10:00 AM PST Station ID: [id number]
== END 2022-06-25 08:27 | disposition home or self-care (01) ==
LOC: DI 08:26
PROVIDERS: ATTEND Nurse Practitioner Family
DX: M81.0 Age-related osteoporosis without current pathological fracture (principal); Z78.0 Asymptomatic menopausal state

== ENCOUNTER 2022-06-25 08:26 | Outpatient (CLI) | payer MEDICAID ==
--- NOTE | 2022-06-25 12:38 | Ultrasound Report ---
PROCEDURE: Ultrasound kidneys INDICATIONS: SOLITARY KIDNEY HX OF STONES TECHNIQUE: Real-time scanning was performed of the retroperitoneal organs, with image documentation. COMPARISON: 06/03/2022 FINDINGS: Right kidney measures 10.9 cm in length. The cortical thickness measures 1.6 cm it. There is a nonobs tructing right renal calculus in the upper pole measuring 1.0 x 0.7 x 0.9 cm. No hydronephrosis or re nal mass lesion. Left nephrectomy. Prevoid bladder measures 193.4 cc. Postvoid 27.3 cc. Right ureteral jet noted. IMPRESSION: 1. Small nonobstructive right renal calculus. 2. Left nephrectomy Reviewed by: Long Burrell MD on 06/25/2022 11:37 AM [place] Approved by: Long Burrell MD on 06/25/2022 11:37 AM [facility] [place] Station ID: [id number]
== END 2022-06-25 08:27 | disposition home or self-care (01) ==
LOC: DI 08:26
PROVIDERS: ATTEND Physician Assistant
DX: N20.0 Calculus of kidney (principal); Z90.5 Acquired absence of kidney

== ENCOUNTER 2022-12-02 10:01 | Outpatient (CLI) | payer MEDICAID ==
[2022-12-02 10:12] LABS: BASOPHILS % (AUTO) 0.3 %; EOSINOPHILS # (AUTO) 0.1 10^3/uL (0.0-0.7); EOSINOPHILS % (AUTO) 1.8 %; HCT - HEMATOCRIT 41.5 % (37.0-47.0); LYMPHOCYTES # (AUTO) 2.2 10^3/uL (1.5-3.5); LYMPHOCYTES % (AUTO) 32.5 %; MEAN CORPUSCULAR HEMOGLOBIN 31.5 pg (27.0-31.0); MEAN CORPUSCULAR HGB CONC 33.7 g/dL (32.0-36.0); MEAN CORPUSCULAR VOLUME 93.3 fL (81.0-99.0); MEAN PLATELET VOLUME 8.9 fL (7.9-10.8); MONOCYTES # (AUTO) 0.4 10^3/uL (0.0-1.0); MONOCYTES % (AUTO) 6.1 %; NEUTROPHILS # (AUTO) 3.9 10^3/uL (1.5-6.6); NEUTROPHILS % (AUTO) 58.7 %; PLT - PLATELET COUNT 275 10^3/uL (130-450); RED BLOOD COUNT 4.45 10^6/uL (4.20-5.40); RED CELL DISTRIBUTION WIDTH 12.8 % (12.0-15.0); WHITE BLOOD COUNT 6.7 x10^3/uL (4.8-10.8)
[2022-12-02 10:33] LABS: ALBUMIN 4.3 g/dL (3.2-5.5); ALBUMIN/GLOBULIN RATIO 1.4 (1.0-2.2); ALKALINE PHOSPHATASE 56 IU/L (42-121); ALT ALANINE AMINOTRANSFERASE 15 IU/L (10-60); AST ASPARTATE AMINOTRANSFERASE 20 IU/L (10-42); BILIRUBIN,TOTAL 0.8 mg/dL (0.2-1.0); BUN - BLOOD UREA NITROGEN 14 mg/dL (6-20); CALCIUM 11.7 mg/dL (8.5-10.3); CARBON DIOXIDE - CO2 26 mmol/L (21-32); CHLORIDE 106 mmol/L (101-111); CHOL/HDL RATIO 2.9 (<4.4); CHOLESTEROL 228 mg/dL; CREATININE 0.8 mg/dL (0.4-1.0); GFR - MDRD 73 (>89); GLUCOSE 103 mg/dL (70-100); HDL CHOLESTEROL 79 mg/dL; LDL CHOLESTEROL,CALCULATED 124 mg/dL; LDL/HDL RATIO 1.6 (<4.4); POTASSIUM 4.2 mmol/L (3.5-5.0); SODIUM 138 mmol/L (135-145); TOTAL PROTEIN 7.3 g/dL (6.7-8.2); TRIGLYCERIDES 124 mg/dL; VLDL CHOLESTEROL 25 mg/dL
[2022-12-02 10:44] LABS: THYROID STIMULATING HORMONE 6.6 uIU/mL (0.34-5.60)
[2022-12-02 11:40] LABS: FREE T4 (FREE THYROXINE) 0.95 ng/dL (0.58-1.64)
[2022-12-02 12:10] LABS: ESTIMATED AVERAGE GLUCOSE 105 mg/dL (70-100); HEMOGLOBIN A1c% 5.3 % (4.27-6.07)
== END 2022-12-02 10:02 | disposition home or self-care (01) ==
LOC: LAB 10:01
PROVIDERS: ATTEND Nurse Practitioner Family
DX: I10 Essential (primary) hypertension (principal); K21.9 Gastro-esophageal reflux disease without esophagitis; E66.9 Obesity, unspecified; R53.83 Other fatigue; R53.81 Other malaise
CPT/HCPCS: 36415; 80053; 80061; 83036; 83721; 84439; 84443; 85025

== ENCOUNTER 2022-12-06 10:47 | Outpatient (CLI) | payer MEDICAID ==
[2022-12-06 11:25] LABS: CALCIUM, IONIZED 1.07 mmol/L (1.15-1.33); VBG PH 7.361 (7.31-7.41)
== END 2022-12-06 10:48 | disposition home or self-care (01) ==
LOC: LAB 10:47
PROVIDERS: ATTEND Nurse Practitioner Family
DX: E83.52 Hypercalcemia (principal)
CPT/HCPCS: 36415; 82306; 82330; 83970

== ENCOUNTER 2022-12-18 06:32 | Outpatient (CLI) | payer MEDICAID ==
[2022-12-18 07:38] LABS: ALBUMIN 4.4 g/dL (3.2-5.5); CALCIUM 10.4 mg/dL (8.5-10.3); CREATININE 1.2 mg/dL (0.4-1.0); PHOSPHORUS 5.1 mg/dL (2.5-4.6); POTASSIUM 4.3 mmol/L (3.5-5.0)
[2022-12-19 07:08] LABS: CALCIUM URINE 8.4 mg/dL (Not Estab.)
== END 2022-12-18 06:33 | disposition home or self-care (01) ==
LOC: LAB 06:32
PROVIDERS: ATTEND Nurse Practitioner Family
DX: I10 Essential (primary) hypertension (principal); E21.3 Hyperparathyroidism, unspecified; Z90.5 Acquired absence of kidney
CPT/HCPCS: 36415; 80069; 82340; 83970

== ENCOUNTER 2023-05-08 16:23 | Emergency (ER) | payer MEDICAID ==
--- NOTE | 2023-05-08 16:48 | ED Physician Documentation ---
History of Present Illness - Stated complaint Stated Complaint: VOMIT/DEHYDRATED - Chief complaint Chief Complaint: Abd Pain - History obtained from History obtained from: Patient - Additonal information Additional information: 62-year-old female who reports a prior history of hepatitis C as well as CKD presents with generalized abdominal discomfort, diarrhea, nausea and poor p.o. intake over the last several days. Prior to that she had cough, nasal congestion and mild shortness of breath for several days. She was at a family emergency in [place] in early April and she may have developed some mild cough and nasal congestion there and then flew back here on 04/26 at which time the cough and nasal congestion got worse and then about 2 days ago she started having the GI symptoms. She feels like her "insides are twisting," at times and she has noted mostly mucus when she tries to have a bowel movement. No blood in stool. No vomiting. Friend felt patient was weak and she was concerned she was dehydrated thus brought her to the ER. No known sick contacts however pt did travel to [place] to visiting her brother who apparently was recently diagnosed with end-stage cancer. The patient did take a home COVID test today which was negative. PD PAST MEDICAL HISTORY - Past Medical History Past Medical History: Yes Cardiovascular: Hypertension Respiratory: Asthma, Shortness of breath Neuro: TIA Endocrine/Autoimmune: HyPOthyroidism GI: Hepatitis [employer] SPECIAL EDUCATION: None : Other HEENT: None Psych: Depression, Anxiety Musculoskeletal: Osteoarthritis Derm: Other - Past Surgical History Past Surgical History: Yes General: EGD, Other Ortho: Other - Present Medications Home Medications: Ambulatory Orders Medication Instructions Recorded Confirmed Citalopram Hydrobromide 25 mg PO DAILY 03/30/19 05/08/23 [Citalopram HBr] traZODone [Desyrel] 50 mg PO QPM 03/30/19 05/08/23 Omeprazole [PriLOSEC] 20 mg PO QDAC 03/31/19 05/08/23 Albuterol Sulfate [Proair Hfa 1 - 2 puffs INH Q4H PRN #1 inhaler 08/30/19 01/05/21 Inhaler] Levothyroxine [Synthroid] 75 mcg PO QDAC 09/13/20 05/08/23 Losartan Potassium 25 mg PO DAILY 09/13/20 05/08/23 Meloxicam [Mobic] 7.5 mg PO BID PRN #20 tablet 01/28/22 11/19/23 Ondansetron Odt [Zofran] 4 mg TL Q6H PRN #10 tablet 05/08/23 - Allergies Allergies/Adverse Reactions: Allergies Allergy/AdvReac Type Severity Reaction Status Date / Time lisinopril Allergy Unknown Verified 05/08/23 16:26 - Social History Does the pt smoke?: No Smoking Status: Never smoker Does the pt drink ETOH?: No Does the pt have substance abuse?: Yes Substance Use and Type: Marijuana - Immunizations Immunizations are current?: Yes - POLST Patient has POLST: No PD ED PE NORMAL - Vitals Vital signs reviewed: Yes - General General: Alert and oriented X 3, No acute distress, Well developed/nourished, Other (very pleasant, conversant) - HEENT HEENT: Atraumatic, Moist mucous membranes, Pharynx benign - Neck Neck: Supple, no meningeal sign, No adenopathy - Cardiac Cardiac: RRR, No murmur, No gallop, No rub, Strong equal pulses - Respiratory Respiratory: No respiratory distress, Clear bilaterally - Abdomen Abdomen: Normal bowel sounds, Soft, Non tender, Non distended, No organomegaly - Derm Derm: Normal color, Warm and dry, No rash - Extremities Extremities: No deformity, No tenderness to palpate, Normal ROM s pain, No edema, No calf tenderness / cord - Neuro Neuro: Alert and oriented X 3, No motor deficit, No sensory deficit, Normal speech Eye Opening: Spontaneous Motor: Obeys Commands Verbal: Oriented GCS Score: 15 - Psych Psych: Normal mood, Normal affect Results - Vitals Vitals: Vital Signs - 24 hr 05/08/23 05/08/23 16:26 19:59 Temperature 36.9 C 36.7 C Heart Rate 75 85 Respiratory 20 16 Rate Blood Pressure 142/86 H 141/87 H O2 Saturation 97 99 Oxygen O2 Source Room air - Labs Labs: Laboratory Tests 05/08/23 05/08/23 05/08/23 16:54 17:19 17:30 WBC 8.3 RBC 4.64 Hgb 14.4 Hct 42.8 MCV 92.2 MCH 31.0 MCHC 33.6 RDW 12.2 Plt Count 269 MPV 9.5 Neut # (Auto) 4.9 Lymph # (Auto) 2.7 Moore # (Auto) 0.7 Eos # (Auto) 0.0 Baso # (Auto) 0.0 Absolute Nucleated RBC 0.00 Nucleated RBC % 0.0 PT INR Sodium Potassium Chloride Carbon Dioxide Anion Gap BUN Creatinine Estimated GFR (MDRD) Glucose Calcium Total Bilirubin AST ALT Alkaline Phosphatase Total Protein Albumin Globulin Albumin/Globulin Ratio Lipase Urine Color YELLOW Urine Clarity SL. CLOUDY Urine pH 5.5 Ur Specific [place] >=1.030 H Urine Protein TRACE Urine Glucose (UA) NEGATIVE Urine Ketones TRACE Urine Occult Blood NEGATIVE Urine Nitrite NEGATIVE Urine Bilirubin NEGATIVE Urine Urobilinogen 0.2 (NORMAL) Ur Leukocyte Esterase TRACE H Urine RBC 6-10 H Urine WBC 11-25 H Ur Squamous Epith Cells MANY Squamous H Urine Bacteria Moderate H Ur Microscopic Review INDICATED Urine Culture Comments NOT INDICATED Nasal Adenovirus (PCR) NOT DETECTED Nasal B. parapertussis DNA (PCR) NOT DETECTED Nasal Coronavir 229E PCR NOT DETECTED Nasal Coronavir HKU1 PCR NOT DETECTED Nasal Coronavir NL63 PCR NOT DETECTED Nasal Coronavir OC43 PCR NOT DETECTED Nasal Enterovir/Rhinovir PCR NOT DETECTED Nasal Influenza B PCR NOT DETECTED Nasal Influenza A PCR NOT DETECTED Nasal Parainfluen 1 PCR NOT DETECTED Nasal Parainfluen 2 PCR NOT DETECTED Nasal Parainfluen 3 PCR NOT DETECTED Nasal Parainfluen 4 PCR NOT DETECTED Nasal RSV (PCR) NOT DETECTED Nasal B.pertussis DNA PCR NOT DETECTED Nasal C.pneumoniae (PCR) NOT DETECTED Dinesh Human Metapneumo PCR NOT DETECTED Nasal M.pneumoniae (PCR) NOT DETECTED Nasal SARS-CoV-2 (PCR) NOT DETECTED 05/08/23 05/08/23 05/08/23 17:30 17:30 19:50 WBC RBC Hgb Hct MCV MCH MCHC RDW Plt Count MPV Neut # (Auto) Lymph # (Auto) Moore # (Auto) Eos # (Auto) Baso # (Auto) Absolute Nucleated RBC Nucleated RBC % PT 12.8 H INR 1.2 Sodium 135 Potassium 3.3 L Chloride 101 Carbon Dioxide 24 Anion Gap 10.0 BUN 22 H Creatinine 1.1 Estimated GFR (MDRD) 50 L Glucose 91 Calcium 8.4 L Total Bilirubin 2.3 H AST 22 ALT 21 Alkaline Phosphatase 44 Total Protein 6.9 Albumin 4.5 Globulin 2.4 Albumin/Globulin Ratio 1.9 Lipase 12 Urine Color LIGHT YELLOW Urine Clarity CLEAR Urine pH 7.0 Ur Specific [place] <=1.005 Urine Protein NEGATIVE Urine Glucose (UA) NEGATIVE Urine Ketones TRACE Urine Occult Blood NEGATIVE Urine Nitrite NEGATIVE Urine Bilirubin NEGATIVE Urine Urobilinogen 0.2 (NORMAL) Ur Leukocyte Esterase NEGATIVE Urine RBC Urine WBC Ur Squamous Epith Cells Urine Bacteria Ur Microscopic Review NOT INDICATED Urine Culture Comments NOT INDICATED Nasal Adenovirus (PCR) Nasal B. parapertussis DNA (PCR) Nasal Coronavir 229E PCR Nasal Coronavir HKU1 PCR Nasal Coronavir NL63 PCR Nasal Coronavir OC43 PCR Nasal Enterovir/Rhinovir PCR Nasal Influenza B PCR Nasal Influenza A PCR Nasal Parainfluen 1 PCR Nasal Parainfluen 2 PCR Nasal Parainfluen 3 PCR Nasal Parainfluen 4 PCR Nasal RSV (PCR) Nasal B.pertussis DNA PCR Nasal C.pneumoniae (PCR) Dinesh Human Metapneumo PCR Nasal M.pneumoniae (PCR) Nasal SARS-CoV-2 (PCR) - Rads (name of study) No standard instances Relevant Findings:: Final report received, See rad report PD Medical Decision Making - ED course Complexity details: reviewed old records, reviewed results, re-evaluated patient, considered differential, d/w patient ED course: 62-year-old female with past medical history as listed above presented with several days of nausea as well as diarrhea and abdominal cramping, which was preceded by several days of viral URI type symptoms. The patient was apparently weak at home and there was concern for dehydration and she was brought into the ER. On arrival here, patient's vital signs are stable, she is in no distress, nontoxic-appearing, appears well-hydrated. She is conversant and ambulatory. Her symptoms were suggestive of viral infection however given her history of CKD and concern for dehydration, we did proceed with labs to monitor electrolytes, evaluate for signs of infection and to check her renal function. Her CBC is stable, CMP shows stable renal function in fact improved slightly from before, her LFTs are also stable bilirubin is up slightly from a normal baseline to 2.3 today. Patient is not having any right upper quadrant pain however and no pain after eating or signs of choledocholithiasis. The patient received 1 L of normal saline and 4 mg of IV Zofran. She had similar symptoms after therefore we did proceeded with a CT abdomen pelvis which shows some chronic changes as listed above, and cholelithiasis but no signs of gallstones, no cholecystitis or other acute infection. The patient did start to feel better after receiving fluids and then was subsequently able to tolerate p.o. without difficulty. Her viral panel was negative, and urinalysis was also negative. Given reassuring work-up thus far, and improvement in her symptoms with hydration and a ntiemetics, I do believe the patient is safe for discharge home, her symptoms are likely secondary to a viral illness and anticipate improvement in next few days. Encouraged oral fluids, and will discharge home on short course of as needed Zofran. If new or worsening symptoms including fever, increasing abdominal pain, or other concerns, return to the ER. Departure - Departure Disposition: , Self Care Clinical Impression: Flu-like symptoms Condition: Good Instructions: ED Viral Syndrome Prescriptions: Ondansetron Odt [Zofran] 4 mg TL Q6H PRN #10 tablet PRN Reason: Nausea / Vomiting Comments: Your workup today was reassuring. Your kidney function is stable and your labs are otherwise near baseline. Your covid and flu tests here are negative but your symptoms are likely due to a viral illness. Your CT scan showed gallstones but no signs of acute infection or surgical problem. Your chest xray is normal. It seems that you are feeling quite a bit better with IV fluids and I'd like you to continue to work on oral intake the next few days. Get plenty of rest. Follow up with your primary doctor if ongoing symptoms or return to the hospital if you are worsening. I have prescribed a nausea tablet for you to take as needed and it was sent to your pharmacy. Your second urine test is still pending. If there is any sign of infection I will call an antibiotic in for you to pickup tomorrow. If the urine test does not show infection, you do not need any antibiotics. Forms: PCP List Discharge Date/Time: 05/08/23 20:14
--- NOTE | 2023-05-08 17:07 | XRAY Report ---
PROCEDURE: Chest 1 View X-Ray INDICATIONS: chest pain TECHNIQUE: One view of the chest was acquired. COMPARISON: None. FINDINGS: Surgical changes and devices: None. Lungs and pleura: No pleural effusions or pneumothorax. Lungs are clear. Mediastinum: Mediastinal contours appear normal. Heart size is normal. Bones and chest wall: No suspicious bony lesions. Overlying soft tissues appear unremarkable. IMPRESSION: No acute cardiopulmonary process. Reviewed by: David Adamson MD on 05/08/2023 4:06 PM [facility] Approved by: David Adamson MD on 05/08/2023 4:06 PM [facility] Station ID: [id number]
[2023-05-08] MEDS ORDERED: ONDANSETRON 4 MG/2 ML VIAL IVP STA (17:37)
[2023-05-08] MEDS ORDERED: SODIUM CHLORIDE 0.9% 1,000 ML IV STA (17:37)
[2023-05-08 17:38] LABS: GLUCOSE, URINE (UA) NEGATIVE (NEGATIVE); KETONES,URINE (UA) TRACE mg/dL (NEGATIVE); LEUKOCYTE ESTERASE, URINE TRACE (NEGATIVE); NITRITE,URINE NEGATIVE (NEGATIVE); OCCULT BLOOD,URINE NEGATIVE (NEGATIVE); PH,URINE 5.5 PH (5.0-7.5); PROTEIN,URINE TRACE mg/dL (NEGATIVE); UROBILINOGEN,URINE 0.2 (NORMAL) E.U./dL (NORMAL)
[2023-05-08 17:46] LABS: BILIRUBIN,URINE NEGATIVE (NEGATIVE); CLARITY,URINE SL. CLOUDY (CLEAR); ICTOTEST,URINE NEGATIVE
[2023-05-08 17:47] LABS: BACTERIA,URINE Moderate /HPF (None Seen); SQUAMOUS EPITHELIAL CELL,UR MANY Squamous (<= Few)
[2023-05-08 17:48] LABS: BASOPHILS % (AUTO) 0.4 %; EOSINOPHILS % (AUTO) 0.4 %; HCT - HEMATOCRIT 42.8 % (37.0-47.0); HGB - HEMOGLOBIN 14.4 g/dL (12.0-16.0); LYMPHOCYTES # (AUTO) 2.7 10^3/uL (1.5-3.5); LYMPHOCYTES % (AUTO) 32.1 %; MEAN CORPUSCULAR HGB CONC 33.6 g/dL (32.0-36.0); MEAN CORPUSCULAR VOLUME 92.2 fL (81.0-99.0); MEAN PLATELET VOLUME 9.5 fL (7.9-10.8); MONOCYTES # (AUTO) 0.7 10^3/uL (0.0-1.0); MONOCYTES % (AUTO) 7.9 %; NEUTROPHILS # (AUTO) 4.9 10^3/uL (1.5-6.6); NEUTROPHILS % (AUTO) 58.4 %; PLT - PLATELET COUNT 269 10^3/uL (130-450); RED BLOOD COUNT 4.64 10^6/uL (4.20-5.40); RED CELL DISTRIBUTION WIDTH 12.2 % (12.0-15.0); WHITE BLOOD COUNT 8.3 x10^3/uL (4.8-10.8)
[2023-05-08 17:56] LABS: INR 1.2 (0.8-1.2); PT - PROTHROMBIN TIME 12.8 secs (9.9-12.6)
[2023-05-08 18:02] LABS: B. PARAPERTUSSIS- RESP PCR PAN NOT DETECTED; B. PERTUSSIS- RESP PCR PANEL NOT DETECTED; C. PNEUMONIAE- RESP PCR PANEL NOT DETECTED; CORONAVIRUS 229E-RESP PCR NOT DETECTED; CORONAVIRUS HKU1-RESP PCR NOT DETECTED; CORONAVIRUS NL63-RESP PCR NOT DETECTED; CORONAVIRUS OC43-RESP PCR NOT DETECTED; HUMAN METAPNEUMOVIRUS NOT DETECTED; INFLUENZA A- RESP PCR PANEL NOT DETECTED; INFLUENZA B - RESP PCR PANEL NOT DETECTED; M. PNEUMONIAE- RESP PCR PANEL NOT DETECTED; PARAINFLUENZA VIRUS 1 NOT DETECTED; PARAINFLUENZA VIRUS 2 NOT DETECTED; PARAINFLUENZA VIRUS 3 NOT DETECTED; PARAINFLUENZA VIRUS 4 NOT DETECTED; RHINOVIRUS/ENTEROVIRUS NOT DETECTED; RSV- RESP PCR PANEL NOT DETECTED; SARS-CoV-2 -RESP PCR PANEL NOT DETECTED
[2023-05-08 18:02] LABS: ALBUMIN 4.5 g/dL (3.2-5.5); ALBUMIN/GLOBULIN RATIO 1.9 (1.0-2.2); BILIRUBIN,TOTAL 2.3 mg/dL (0.2-1.0); CALCIUM 8.4 mg/dL (8.5-10.3); CREATININE 1.1 mg/dL (0.6-1.3); POTASSIUM 3.3 mmol/L (3.5-4.5); TOTAL PROTEIN 6.9 g/dL (6.4-8.9)
[2023-05-08] MEDS ORDERED: iohexoL-300 100 ML VIAL IVP ONE (18:58)
--- NOTE | 2023-05-08 19:09 | CT Report ---
PROCEDURE: ABDOMEN/PELVIS W INDICATIONS: abd pain CONTRAST: 100ml omni 300 TECHNIQUE: After the administration of intravenous contrast, 5 mm thick sections acquired from the diaphragms to the symphysis. 5 mm thick coronal and sagittal reformats were acquired. For radiation dose reducti on, the following was used: automated exposure control, adjustment of mA and/or kV according to annette ent size. COMPARISON: CT abdomen/pelvis 09/03/2020 FINDINGS: Image quality: Excellent. Lung bases and heart: Unremarkable. Liver: No solid mass. Gallbladder and biliary tree: The bladder is contracted and contains multiple calcified gallstones. N o acute inflammatory changes. No biliary ductal dilatation. Spleen: No splenomegaly. Pancreas: No pancreatic ductal dilation. Adrenals: No adrenal nodule. Kidneys and ureters: Status post left nephrectomy. No mass in the left renal bed. Right kidney enhanc es normally without hydronephrosis. No renal calculus. Questionable mild enhancement of the right ngoc al and ureteral tang. Bowel and peritoneum: Small hiatal hernia. Probable postsurgical changes at the gastric fundus. Scatt ered diverticula are seen in the colon without signs of acute diverticulitis. Normal appendix. No sig ns of small bowel obstruction. No ascites or pneumoperitoneum. Lymph nodes: No central or retroperitoneal adenopathy. Vessels: No infrarenal aortic aneurysm. PELVIS Reproductive organs: Unremarkable. Bladder: No abnormal wall thickening, accounting for underdistension. Pelvic lymph nodes: No pelvic adenopathy by size criteria. Bones: No aggressive osseous abnormality. Other: No significant ventral or inguinal hernia. IMPRESSION: 1.Postsurgical changes from left nephrectomy. No recurrent mass in the left renal bed. 2.Questionable mild hyperenhancement of the tang of the right ureter and right renal pelvis. Recomme nd clinical correlation to exclude urinary tract infection. 3.Colonic diverticulosis without signs of acute diverticulitis. 4.Cholelithiasis. Reviewed by: Bolivar White MD on 05/08/2023 7:07 PM PST Approved by: Bolivar White MD on 05/08/2023 7:07 PM PST Station ID: [id number]
[2023-05-08 20:02] VITALS: BP 141/87; O2SAT 99
[2023-05-08 20:04] LABS: BILIRUBIN,URINE NEGATIVE (NEGATIVE); GLUCOSE, URINE (UA) NEGATIVE (NEGATIVE); KETONES,URINE (UA) TRACE mg/dL (NEGATIVE); LEUKOCYTE ESTERASE, URINE NEGATIVE (NEGATIVE); NITRITE,URINE NEGATIVE (NEGATIVE); OCCULT BLOOD,URINE NEGATIVE (NEGATIVE); PROTEIN,URINE NEGATIVE (NEGATIVE); UROBILINOGEN,URINE 0.2 (NORMAL) E.U./dL (NORMAL)
[2023-05-08 20:11] LABS: CLARITY,URINE CLEAR (CLEAR)
== END 2023-05-08 20:14 | disposition home or self-care (01) ==
LOC: ED 16:23
DX: R10.84 Generalized abdominal pain (principal); R19.7 Diarrhea, unspecified; R11.0 Nausea; N18.9 Chronic kidney disease, unspecified; Z20.822 Contact with and (suspected) exposure to COVID-19
CPT/HCPCS: 36415; 71045; 74177; 80053; 81001; 81003; 83690; 85025; 85610; 87633; 96361; 96374; 99284; Q9967; 87086

== ENCOUNTER 2023-06-07 10:51 | Outpatient (CLI) | payer MEDICAID ==
--- NOTE | 2023-06-07 21:07 | XRAY Report ---
PROCEDURE: Knee 3 View BILAT INDICATIONS: BILATERAL KNEE JOINT PAIN > 3 MONTHS TECHNIQUE: 3 views of the bilateral knee(s) were acquired. COMPARISON: None. FINDINGS: Bones: No fractures or dislocations. No suspicious bony lesions. Mild bilateral degenerative barrera ge with mild medial compartment joint space loss. Soft tissues: No knee joint effusion. No suspicious soft tissue calcifications or masses. IMPRESSION: Mild bilateral knee joint degenerative change. Reviewed by: Que Urrutia MD on 06/07/2023 9:05 PM PST Approved by: Que Urrutia MD on 06/07/2023 9:05 PM PST Station ID: [id number]
== END 2023-06-07 10:52 | disposition home or self-care (01) ==
LOC: DI.N 10:51
PROVIDERS: ATTEND Nurse Practitioner Family
DX: M17.0 Bilateral primary osteoarthritis of knee (principal)

== ENCOUNTER 2023-07-15 07:37 | Outpatient (CLI) | payer MEDICAID ==
--- NOTE | 2023-07-18 09:23 | Mammography Report ---
BILATERAL DIGITAL SCREENING MAMMOGRAM 3D/2D: 07/15/2023 CLINICAL: Routine screening. Comparison is made to exams dated: 06/25/2022 mammogram, 05/27/2021 mammogram, 12/29/2017 mammogram, 11/18 mammogram, and 09/01/2015 mammogram - [facility]. Both breasts are almost entirely fatty (category a/<25% glandular tissue). No significant masses, calcifications, or other findings are seen in either breast. There has been no significant interval change. IMPRESSION: NEGATIVE There is no mammographic evidence of malignancy. A 1 year screening mammogram is recommended. Based on the Tyrer Cuzick model (a risk assessment model) the patient's lifetime risk is 2.3% and her 10 year risk is 1.0%. According to the ACR, ACS, and NCCN guidelines, an annual breast MRI exam [place] g with mammogram is recommended if the patients lifetime risk is 20% or greater. This exam was interpreted at Station ID: [id number]. NOTE: For mammograms, a report in lay terms will be sent to the patient. Approximately 15% of breast malignancies will not be visualized mammographically. In the management of a palpable breast mass, a negative mammogram must not discourage biopsy of a clinically suspicious lesion. Electronically Signed By: Matthieu mccabe/kiara:07/15/2023 09:55:40 letter sent: No_Letter ACR BI-RADS Category 1: Negative 3341F PARENCHYMAL PATTERN: (F) - The breast(s) demonstrate(s) diffuse fatty replacement. BI-RADS CATEGORY: (1) - 1 Mammogram [id number] 1 year screening LATERALITY: (B)
== END 2023-07-15 07:38 | disposition home or self-care (01) ==
LOC: DI 07:37
DX: Z12.31 Encounter for screening mammogram for malignant neoplasm of breast (principal)

== ENCOUNTER 2023-09-16 11:51 | Outpatient (CLI) | payer MEDICAID ==
[2023-09-16 12:11] LABS: BASOPHILS % (AUTO) 0.3 %; EOSINOPHILS # (AUTO) 0.1 10^3/uL (0.0-0.7); EOSINOPHILS % (AUTO) 1.3 %; HCT - HEMATOCRIT 42.1 % (37.0-47.0); HGB - HEMOGLOBIN 13.4 g/dL (12.0-16.0); LYMPHOCYTES # (AUTO) 2.3 10^3/uL (1.5-3.5); LYMPHOCYTES % (AUTO) 37.7 %; MEAN CORPUSCULAR HEMOGLOBIN 30.5 pg (27.0-31.0); MEAN CORPUSCULAR HGB CONC 31.8 g/dL (32.0-36.0); MEAN CORPUSCULAR VOLUME 95.7 fL (81.0-99.0); MEAN PLATELET VOLUME 8.5 fL (7.9-10.8); MONOCYTES # (AUTO) 0.4 10^3/uL (0.0-1.0); MONOCYTES % (AUTO) 6.5 %; NEUTROPHILS # (AUTO) 3.3 10^3/uL (1.5-6.6); NEUTROPHILS % (AUTO) 53.9 %; PLT - PLATELET COUNT 284 10^3/uL (130-450); RED CELL DISTRIBUTION WIDTH 13.3 % (12.0-15.0); WHITE BLOOD COUNT 6.1 x10^3/uL (4.8-10.8)
[2023-09-16 12:31] LABS: ALBUMIN 4.2 g/dL (3.2-5.5); ALBUMIN/GLOBULIN RATIO 1.6 (1.0-2.2); ALKALINE PHOSPHATASE 49 IU/L (42-121); ALT ALANINE AMINOTRANSFERASE 17 IU/L (10-60); AST ASPARTATE AMINOTRANSFERASE 19 IU/L (10-42); BILIRUBIN,TOTAL 1.2 mg/dL (0.2-1.0); BUN - BLOOD UREA NITROGEN 18 mg/dL (6-20); CALCIUM 8.9 mg/dL (8.5-10.3); CARBON DIOXIDE - CO2 26 mmol/L (21-32); CHLORIDE 108 mmol/L (101-111); CHOL/HDL RATIO 3.1 (<4.4); CHOLESTEROL 196 mg/dL; CREATININE 0.9 mg/dL (0.6-1.3); CRP - C-REACTIVE PROTEIN < 0.5 mg/dL (<0.5); GFR - MDRD 63 (>89); GLUCOSE 100 mg/dL (74-104); HDL CHOLESTEROL 63 mg/dL; LDL CHOLESTEROL,CALCULATED 94 mg/dL; LDL/HDL RATIO 1.5 (<4.4); POTASSIUM 4.3 mmol/L (3.5-4.5); SODIUM 138 mmol/L (135-145); TOTAL PROTEIN 6.8 g/dL (6.4-8.9); TRIGLYCERIDES 197 mg/dL (48-352); VLDL CHOLESTEROL 39 mg/dL
[2023-09-16 12:41] LABS: THYROID STIMULATING HORMONE 2.27 uIU/mL (0.34-5.60)
--- NOTE | 2023-09-16 14:14 | XRAY Report ---
PROCEDURE: Cervical Spine w/Flex/Ext 6+V INDICATIONS: CERVICAL RADICULOPATHY TECHNIQUE: 7 views of the cervical spine were acquired. COMPARISON: None. FINDINGS: Bones: No fractures or dislocations to the C6-C7 level. Mild anterolisthesis of C4 on C5 and C5 on C6. Mild multilevel degenerative changes of the cervical spine with facet and uncovertebral arthropat hy, disc height loss, endplate degenerative changes and spurring. No suspicious bony lesions. There is limited range of motion between flexion and extension, with preserved bony alignment. No signific ant osseous neuroforaminal stenosis on oblique imaging. Soft tissues: Prevertebral soft tissues are normal in thickness. IMPRESSION: Mild multilevel degenerative changes of the cervical spine with limited range of motion. Reviewed by: Mikhail Collazo MD on 09/16/2023 2:13 PM PDT Approved by: Mikhail Collazo MD on 09/16/2023 2:13 PM PDT Station ID: [id number]
--- NOTE | 2023-09-16 16:13 | XRAY Report ---
PROCEDURE: Shoulder 2+V RT INDICATIONS: RIGHT SHOULDER PAIN TECHNIQUE: 3 views of the shoulder were acquired. COMPARISON: None. FINDINGS: Bones: No fractures or dislocations. No suspicious bony lesions. Visualized ribs appear intact. Soft tissues: No suspicious soft tissue calcifications. The visualized lungs are within normal limi ts. IMPRESSION: No acute bony abnormality. Reviewed by: Renan Wilde MD on 09/16/2023 4:12 PM PDT Approved by: Renan Wilde MD on 09/16/2023 4:12 PM PDT Station ID: [id number]
[2023-09-16 17:02] LABS: RHEUMATOID FACTOR NEGATIVE (Negative)
[2023-09-16 17:43] LABS: ESTIMATED AVERAGE GLUCOSE 100 mg/dL (70-100); HEMOGLOBIN A1c% 5.1 % (4.27-6.07)
== END 2023-09-16 11:52 | disposition home or self-care (01) ==
LOC: LAB 11:51
PROVIDERS: ATTEND Nurse Practitioner Family
DX: M25.511 Pain in right shoulder (principal); M47.22 Other spondylosis with radiculopathy, cervical region; M25.561 Pain in right knee; M25.562 Pain in left knee; M54.50 Low back pain, unspecified; M79.646 Pain in unspecified finger(s)
CPT/HCPCS: 36415; 80053; 80061; 83036; 83721; 84443; 85025; 85651; 86140; 86430

== ENCOUNTER 2024-01-27 08:25 | Outpatient (CLI) | payer MEDICAID ==
--- NOTE | 2024-01-27 16:11 | CT Report ---
PROCEDURE: Abdomen/Pelvis WO INDICATIONS: KIDNEY STONES TECHNIQUE: A CT scan of the abdomen and pelvis was performed without the use of intravenous contrast. Images we re recorded and evaluated at appropriate window settings. Reformats: coronal and sagittal. For radiat ion dose reduction, the following was used: automated exposure control, adjustment of mA and/or kV ac cording to patient size. COMPARISON: CT abdomen and pelvis on May 08, 2023. FINDINGS: Image quality: Diagnostic. Evaluation of the visceral organs is limited due to the lack of intravenou s contrast. Lower chest: Small hiatal hernia. Liver: No contour-deforming mass. Gallbladder: Decompressed with gallstone. Biliary tree: No intrahepatic or extrahepatic dilation, accounting for age. Spleen: No splenomegaly. Pancreas: No pancreatic ductal dilation. Adrenals: No adrenal nodule. Kidneys and ureters: Left kidney is absent with no soft tissue in the surgical bed. Right kidney demo nstrate no hydronephrosis, nephrolithiasis or contour deforming mass. Stomach, bowel and peritoneum: No gastric or small bowel dilation. No abnormal wall thickening. No pa thologic free fluid. Normal appendix. Sigmoid and scattered colonic diverticulosis, without diverticu litis. Lymph nodes: No central or retroperitoneal adenopathy. Vessels: No infrarenal aortic aneurysm. Reproductive organs: Unremarkable. Bladder: Bladder wall thickness is normal, accounting for underdistention. No calcified bladder stone s. Pelvic lymph nodes: No adenopathy by size criteria. Bones: No aggressive osseous abnormality. Mild multilevel degenerative changes of the spine. Other: No significant ventral or inguinal hernia. IMPRESSION: Evaluation of the visceral organs is limited due to the lack of intravenous contrast. 1.No right-sided hydronephrosis or obstructing renal stone. 2.Left kidney is surgically absent. No evidence of local recurrence. 3.Diverticulosis without diverticulitis. 4.Cholelithiasis without acute cholecystitis. Reviewed by: Miley Avila MD on 01/27/2024 4:10 PM PDT Approved by: Miley Avila MD on 01/27/2024 4:10 PM PDT Station ID: [id number]
== END 2024-01-27 08:26 | disposition home or self-care (01) ==
LOC: DI 08:25
PROVIDERS: ATTEND Student in an Organized Health Care Education/Training Program
DX: K57.30 Diverticulosis of large intestine without perforation or abscess without bleeding (principal); K80.20 Calculus of gallbladder without cholecystitis without obstruction; Z90.5 Acquired absence of kidney

== ENCOUNTER 2024-03-10 15:23 | Outpatient (CLI) | payer MEDICAID ==
--- NOTE | 2024-03-11 22:00 | Ultrasound Report ---
PROCEDURE: Renal (Retroperitoneal) INDICATIONS: HYDRONEPHROSIS TECHNIQUE: Real-time scanning was performed of the retroperitoneal organs, with image documentation. COMPARISON: None. FINDINGS: Kidneys: Kidneys are normal in size. Right kidney measures 9.7 cm long. Renal cortical thickness is 1.6 cm; left kidney is surgically absent. There is dilated right renal collecting system and right p roximal ureter measures up to 11 mm in diameter. 0.6 x 0.5 cm echogenic focus is noted in mid pole ri ght kidney. No solid-appearing renal lesion. Bladder: Pre-void bladder volume is 138.59 mL. Post-void residual is 64.99 mL. Pre-void images dem onstrate no intraluminal masses or stones. On pre-void images, the lateral ureteral jets are noted w ith color Doppler interrogation. (Of note, ureteral jets may not be detectable in up to 25% of cases due to insufficient differences in specific gravity between ureteral and bladder urine). Miscellaneous: No free abdominal fluid. IMPRESSION: 1. [id number] right-sided hydronephrosis. No obstructing stone is seen. Nonobstructing stone is seen in midpole right kidney. 2. No bladder wall abnormality. Moderate post void residual. 3. Left kidney is surgically absent. No soft tissue mass is seen in left renal fossa. Reviewed by: Ceferino Garcia MD on 03/11/2024 9:58 PM PDT Approved by: Ceferino Garcia MD on 03/11/2024 9:58 PM PDT Station ID: [id number]
== END 2024-03-10 15:24 | disposition home or self-care (01) ==
LOC: DI 15:23
PROVIDERS: ATTEND Student in an Organized Health Care Education/Training Program
DX: N13.2 Hydronephrosis with renal and ureteral calculous obstruction (principal)